=== PATIENT | female | born 1935 | race Caucasian/White ===

== ENCOUNTER → 2023-11-07 12:08 | Outpatient (REF) | payer OTHER, SELFPAY ==
[2023-11-07 13:24] LABS: % Basophils 0.8 % (0-2); % Eosinophils 5.9 % (0-6); % Immature Granulocytes 0.9 % (0-0.5); % Lymphocytes 10.9 % (20.5-51.1); % Monocytes 8.7 % (1.7-9.3); % Neutrophils 72.8 % (42.2-75.2); Absolute Basophils 0.1 10^3/uL (0-0.2); Absolute Eosinophils 0.4 10^3/uL (0-0.7); Absolute Immature Granulocytes 0.1 10^3/uL (0-0.05); Absolute Lymphocytes 0.7 10^3/uL (1.2-3.4); Absolute Monocytes 0.6 10^3/uL (0.1-0.6); Absolute Neutrophils 4.8 10^3/uL (1.4-6.5); Hematocrit 34.5 % (37.0-47.0); Hemoglobin 10.9 g/dL (12.0-16.0); Mean Corp Hgb Conc. 31.6 g/dL (33.0-37.0); Mean Corpuscular Volume 88.7 fL (81.0-99.0); Mean Platelet Volume 12.6 fL (7.4-10.4); Nucleated Red Blood Cells % 0 %; Platelet Count 113 10^3/uL (130-400); Red Blood Cell Count 3.89 10^6/uL (4.20-5.40); Red Cell Dist. Width 19.3 % (11.5-14.5); White Blood Cell Count 6.6 10^3/uL (4.8-10.8)
[2023-11-07 13:51] LABS: Iron 132 ug/dl (37-170)
[2023-11-07 14:02] LABS: Percent Saturation 35 % (20-50); Total Iron Binding Capacity 371 ug/dl (265-497)
[2023-11-07 14:28] LABS: Ferritin 40.8 ng/ml (11.1-264.0)
== END ==
LOC: REG 12:08
PROVIDERS: ATTENDING PHYSICIAN Internal Medicine Geriatric Medicine
DX: J98.4 Other disorders of lung (principal); D50.0 Iron deficiency anemia secondary to blood loss (chronic)
CPT/HCPCS: 36415; 82728; 83540; 83550; 85025

== ENCOUNTER → 2023-12-02 08:37 | Outpatient (REF) | payer OTHER, SELFPAY | LOC: HWRAD 08:37 | PROVIDERS: ATTENDING PHYSICIAN Surgery; FAMILY PHYSICIAN Internal Medicine Geriatric Medicine | DX: K46.9 Unspecified abdominal hernia without obstruction or gangrene (principal) | CPT/HCPCS: 76705 ==

== ENCOUNTER → 2024-02-18 12:17 | Outpatient (REF) | payer OTHER, SELFPAY ==
[2024-02-18 14:02] LABS: CEA 1.54 ng/ml
== END ==
LOC: REG 12:17
PROVIDERS: ATTENDING PHYSICIAN Surgery; FAMILY PHYSICIAN Internal Medicine Geriatric Medicine
DX: Z85.038 Personal history of other malignant neoplasm of large intestine (principal)
CPT/HCPCS: 36415; 82378

== ENCOUNTER → 2024-06-01 13:27 | Outpatient (REF) | payer OTHER, SELFPAY | LOC: RAD 13:27 | PROVIDERS: ATTENDING PHYSICIAN Internal Medicine Critical Care Medicine; FAMILY PHYSICIAN Internal Medicine Geriatric Medicine | DX: J45.40 Moderate persistent asthma, uncomplicated (principal) | CPT/HCPCS: 71046 ==

== ENCOUNTER → 2024-06-08 08:53 | Outpatient (REF) | payer OTHER, SELFPAY ==
[2024-06-08 10:57] LABS: ALT (SGPT) 20 U/L (0-35); AST (SGOT) 31 U/L (14-36); Alkaline Phosphatase 62 U/L (38-126); Blood Urea Nitrogen 32 mg/dl (7-17); Calcium 10.2 mg/dl (8.4-10.2); Carbon Dioxide 26 mmol/L (22-30); Chloride 108 mmol/L (98-107); Glucose 94 mg/dl (70-99); HDL Cholesterol 79 mg/dl; Iron 126 ug/dl (37-170); LDL Cholesterol, Calculated 82 mg/dl; Potassium 4.2 mmol/L (3.5-5.1); Sodium 146 mmol/L (135-145); Total Bilirubin 0.7 mg/dl (0.2-1.3); Total Cholesterol 174 mg/dl (50-199); Triglyceride 69 mg/dl (10-149); Very Low Density Lipoprotein 13 mg/dl (0-30); eGFR 36.19
[2024-06-08 11:06] LABS: Percent Saturation 44 % (20-50); Total Iron Binding Capacity 312 ug/dl (265-497)
[2024-06-08 11:08] LABS: % Eosinophils 4.9 % (0-6); % Immature Granulocytes 0.8 % (0-0.5); % Lymphocytes 16.9 % (20.5-51.1); % Monocytes 9.8 % (1.7-9.3); % Neutrophils 66.6 % (42.2-75.2); Absolute Basophils 0.1 10^3/uL (0-0.2); Absolute Eosinophils 0.3 10^3/uL (0-0.7); Absolute Lymphocytes 0.9 10^3/uL (1.2-3.4); Absolute Monocytes 0.5 10^3/uL (0.1-0.6); Absolute Neutrophils 3.4 10^3/uL (1.4-6.5); Hematocrit 33.8 % (37.0-47.0); Mean Corp Hgb Conc. 32.5 g/dL (33.0-37.0); Mean Corpuscular Hgb 30.2 pg (27.0-31.0); Mean Corpuscular Volume 92.9 fL (81.0-99.0); Mean Platelet Volume 11.9 fL (7.4-10.4); Nucleated Red Blood Cells % 0 %; Platelet Count 93 10^3/uL (130-400); Red Blood Cell Count 3.64 10^6/uL (4.20-5.40); Red Cell Dist. Width 13.5 % (11.5-14.5); White Blood Cell Count 5.1 10^3/uL (4.8-10.8)
[2024-06-08 11:13] LABS: Free T4 1.35 ng/dl (0.78-2.19); Vitamin D, 25-OH*** 31.8 ng/mL (30-80)
[2024-06-08 11:26] LABS: TSH 0.97 uIU/ml (0.47-4.68)
== END ==
LOC: REG 08:53
PROVIDERS: ATTENDING PHYSICIAN Internal Medicine Geriatric Medicine
DX: Z85.038 Personal history of other malignant neoplasm of large intestine (principal); I27.20 Pulmonary hypertension, unspecified
CPT/HCPCS: 36415; 80053; 80061; 82306; 83540; 83550; 84439; 84443; 85025

== ENCOUNTER → 2024-06-17 12:41 | Outpatient (REF) | payer OTHER, SELFPAY ==
[2024-06-17 15:36] LABS: Carbon Dioxide 29 mmol/L (22-30); Glucose 91 mg/dl (70-99); eGFR 36.19
[2024-06-17 15:46] LABS: Blood Urea Nitrogen 34 mg/dl (7-17); Calcium 10.1 mg/dl (8.4-10.2); Chloride 104 mmol/L (98-107); Potassium 4.3 mmol/L (3.5-5.1); Sodium 142 mmol/L (135-145)
== END ==
LOC: REG 12:41
PROVIDERS: ATTENDING PHYSICIAN Internal Medicine Geriatric Medicine
DX: N28.9 Disorder of kidney and ureter, unspecified (principal)
CPT/HCPCS: 36415; 80048

== ENCOUNTER → 2024-06-29 06:34 | Day surgery (SDC) | payer OTHER, SELFPAY | LOC: GI 06:34 | PROVIDERS: ATTENDING PHYSICIAN Internal Medicine Gastroenterology | DX: Z08 Encounter for follow-up examination after completed treatment for malignant neoplasm (principal); Z85.038 Personal history of other malignant neoplasm of large intestine; K64.8 Other hemorrhoids; K63.89 Other specified diseases of intestine | CPT/HCPCS: 45378 ==

== ENCOUNTER → 2024-07-22 11:18 | Outpatient (REF) | payer OTHER, SELFPAY | LOC: RAD 11:18 | PROVIDERS: ATTENDING PHYSICIAN Internal Medicine Gastroenterology | DX: R15.1 Fecal smearing (principal); Z90.49 Acquired absence of other specified parts of digestive tract | CPT/HCPCS: 74018 ==

== ENCOUNTER → 2024-08-13 09:02 | Outpatient (REF) | payer OTHER, SELFPAY | LOC: HWRAD 09:02 | PROVIDERS: ATTENDING PHYSICIAN Internal Medicine Gastroenterology; FAMILY PHYSICIAN Internal Medicine Geriatric Medicine | DX: R11.0 Nausea (principal) | CPT/HCPCS: 76700 ==

== ENCOUNTER → 2024-11-10 11:12 | Outpatient (REF) | payer OTHER, SELFPAY ==
[2024-11-10 12:09] LABS: Urine Albumin 3+ (Neg - Trace); Urine Bilirubin Negative (Negative); Urine Character Clear (Clear); Urine Color Yellow; Urine Glucose Negative (Negative); Urine Ketone Negative (Negative); Urine Leukocyte Negative (Negative); Urine Nitrite Negative (Negative); Urine Occult Blood 3+ (Negative); Urine Specific Gravity 1.015 (<1.030); Urine Urobilinogen Negative (Neg - 1+)
[2024-11-10 12:41] LABS: ALT (SGPT) 23 U/L (0-35); AST (SGOT) 25 U/L (14-36); Albumin 3.5 g/dl (3.5-5.0); Alkaline Phosphatase 74 U/L (38-126); Blood Urea Nitrogen 47 mg/dl (7-17); Calcium 9.2 mg/dl (8.4-10.2); Carbon Dioxide 22 mmol/L (22-30); Chloride 108 mmol/L (98-107); Glucose 100 mg/dl (70-99); HDL Cholesterol 61 mg/dl; Iron 57 ug/dl (37-170); LDL Cholesterol, Calculated 80 mg/dl; Potassium 4.2 mmol/L (3.5-5.1); Sodium 137 mmol/L (135-145); Total Bilirubin 0.6 mg/dl (0.2-1.3); Total Cholesterol 153 mg/dl (50-199); Total Protein 5.7 g/dl (6.3-8.2); Triglyceride 63 mg/dl (10-149); Very Low Density Lipoprotein 12 mg/dl (0-30); eGFR 10.92
[2024-11-10 12:41] LABS: Urine Squamous Cell 0-2 /LPF (Few)
[2024-11-10 12:42] LABS: Urine Bacteria Few (Negative); Urine Red Blood Cell 0-2 /HPF (0-2); Urine White Cell 0-2 /HPF (0-5)
[2024-11-10 12:49] LABS: Percent Saturation 23 % (20-50); Total Iron Binding Capacity 242 ug/dl (265-497)
[2024-11-10 12:54] LABS: % Basophils 0.3 % (0-2); % Eosinophils 1.5 % (0-6); % Lymphocytes 9.1 % (20.5-51.1); % Monocytes 7.3 % (1.7-9.3); % Neutrophils 80.8 % (42.2-75.2); Absolute Eosinophils 0.1 10^3/uL (0-0.7); Absolute Immature Granulocytes 0.1 10^3/uL (0-0.05); Absolute Lymphocytes 0.5 10^3/uL (1.2-3.4); Absolute Monocytes 0.4 10^3/uL (0.1-0.6); Absolute Neutrophils 4.8 10^3/uL (1.4-6.5); Hematocrit 21.4 % (37.0-47.0); Hemoglobin 6.7 g/dL (12.0-16.0); Mean Corp Hgb Conc. 31.3 g/dL (33.0-37.0); Mean Corpuscular Volume 99.1 fL (81.0-99.0); Mean Platelet Volume 11.8 fL (7.4-10.4); Nucleated Red Blood Cells % 0 %; Platelet Count 73 10^3/uL (130-400); Red Blood Cell Count 2.16 10^6/uL (4.20-5.40); Red Cell Dist. Width 14.5 % (11.5-14.5); White Blood Cell Count 5.9 10^3/uL (4.8-10.8)
[2024-11-10 12:58] LABS: Free T4 1.56 ng/dl (0.78-2.19); Vitamin D, 25-OH*** 24.8 ng/mL (30-80)
[2024-11-10 13:36] LABS: Vitamin B12 556 pg/ml (239-931)
[2024-11-10 15:24] LABS: TSH 1.57 uIU/ml (0.47-4.68)
[2024-11-11 18:35] LABS: CEA 2.36 ng/ml
== END ==
LOC: REG 11:12
PROVIDERS: ATTENDING PHYSICIAN Internal Medicine Geriatric Medicine
DX: I27.20 Pulmonary hypertension, unspecified (principal); J45.40 Moderate persistent asthma, uncomplicated; J47.9 Bronchiectasis, uncomplicated; E03.9 Hypothyroidism, unspecified; I10 Essential (primary) hypertension; J31.0 Chronic rhinitis; R06.02 Shortness of breath; R42 Dizziness and giddiness; D50.0 Iron deficiency anemia secondary to blood loss (chronic); Z13.89 Encounter for screening for other disorder
CPT/HCPCS: 36415; 80053; 80061; 81003; 81015; 82306; 82378; 82607; 82728; 83540; 83550; 84439; 84443; 85025

== ENCOUNTER 2024-11-10 18:00 | Inpatient (IN) | payer OTHER, SELFPAY ==
[2024-11-10] VITALS (10 sets, daily range): BP systolic 123–159; BP diastolic 56–83; BMI 20.6
[2024-11-10 15:56] LABS: % Basophils 0.2 % (0-2); % Eosinophils 1.4 % (0-6); % Immature Granulocytes 1.1 % (0-0.5); % Monocytes 7.6 % (1.7-9.3); % Neutrophils 80.7 % (42.2-75.2); Absolute Eosinophils 0.1 10^3/uL (0-0.7); Absolute Immature Granulocytes 0.1 10^3/uL (0-0.05); Absolute Lymphocytes 0.5 10^3/uL (1.2-3.4); Absolute Monocytes 0.4 10^3/uL (0.1-0.6); Absolute Neutrophils 4.5 10^3/uL (1.4-6.5); Hematocrit 20.7 % (37.0-47.0); Hemoglobin 6.5 g/dL (12.0-16.0); Mean Corp Hgb Conc. 31.4 g/dL (33.0-37.0); Mean Corpuscular Hgb 30.5 pg (27.0-31.0); Mean Corpuscular Volume 97.2 fL (81.0-99.0); Nucleated Red Blood Cells % 0 %; Platelet Count 71 10^3/uL (130-400); Red Blood Cell Count 2.13 10^6/uL (4.20-5.40); Red Cell Dist. Width 14.3 % (11.5-14.5); White Blood Cell Count 5.5 10^3/uL (4.8-10.8)
[2024-11-10 16:13] LABS: ALT (SGPT) 21 U/L (0-35); AST (SGOT) 25 U/L (14-36); Alkaline Phosphatase 72 U/L (38-126); Blood Urea Nitrogen 50 mg/dl (7-17); Carbon Dioxide 20 mmol/L (22-30); Chloride 105 mmol/L (98-107); Glucose 125 mg/dl (70-99); Sodium 138 mmol/L (135-145); Total Bilirubin 0.5 mg/dl (0.2-1.3); Total Protein 5.9 g/dl (6.3-8.2); eGFR 10.92
--- NOTE | 2024-11-10 16:30 | ED.GENMED ---
History of Present Illness
<Wilmar Pena PA-C - Last Filed: 11/10/24 18:58>
General
Chief Complaint: Abnormal Lab Value
Source: patient and records
Time Seen by Provider: 11/10/24 16:06
History of Present Illness
History of Present Illness:
89-year-old female with past medical history of previous colon cancer, asthma, intracranial bleeding status post fall in 2022 with residual positional vertigo, thrombocytopenia presenting to the ER after she had outpatient labs with primary care
provider which showed a hemoglobin of 6.7, sent to the ER for further evaluation. Patient notes that this is part of a routine visit to her primary care provider but notes that she feels as if she is always cold and has been a little bit more
fatigued recently. Patient denies any fevers, chills, rigors, nausea, vomiting bowel changes including melena or hematochezia. Patient denies any history of similar. Patient's does note that she did have a colonoscopy within the last year
which did not show any abnormalities. Patient is not on any anticoagulant medication. No other concerns presently.
Past History
<Wilmar Pena PA-C - Last Filed: 11/10/24 18:58>
Past History
ED Past Medical History: Asthma, Hypothyroidism and Other (Low platelets, hypothyroidism)
ED Past Surgical History: Appendectomy
Social History
Tobacco: Non-smoker
Alcohol: Occasional
Drug: None
Personal:
Living: with family
Employment: Retired
Family History
Family History: Other (Father with cirrhosis)
Review of Systems
<Wilmar Pena PA-C - Last Filed: 11/10/24 18:58>
Review of Systems
All Other Systems: ROS reviewed and negative except as documented in HPI and ROS
Phy Exam
<Wilmar Pena PA-C - Last Filed: 11/10/24 18:58>
Physical Exam
Physical Exam:
GENERAL: Alert , in no apparent distress
EYE: clear conjunctiva b/l
HEAD: NCAT
ENT: o/p clr, mmm.
CARDIAC: Borderline tachycardic rate and rhythm, no murmur
LUNGS: Clear breath sounds bilaterally, no acute respiratory distress, no wheezes/rales/rhonchi
ABDOMEN: Soft, without focal tenderness, no r/g, no cvat
RECTAL EXAM: Chaperoned by ED nurse Felicita, light brown stool heme-negative
NEUROLOGICAL: Alert and oriented
SKIN: Warm and dry, skin intact. Pale in appearance
MUSCULOSKELETAL: No edema, well perfused.
PSYCH: Normal and appropriate interaction.
Scores
<Wilmar Pena PA-C - Last Filed: 11/10/24 18:58>
Heart Failure Risk
Heart Failure Risk Score: Not Applicable
Heart Score for Chest Pain Patients
STEMI patient?: Not applicable
Withdrawal Assessment of Alcohol
Withdrawal Assessment Completed?: Not applicable
Course
<Wilmar Pena PA-C - Last Filed: 11/10/24 18:58>
Orders/Labs/Results
Orders:
Orders
11/10/24 15:38
Type+Screen Urgent
Complete Blood Count/With Diff Urgent
Comprehensive Metabolic Panel Urgent
11/10/24 16:31
Blood Bank Products [* Blood Bank Products] Urgent
Blood Bank Products: *Packed RBC Leuko(PRBC's)
Quantity: 2
Transfuse Today: Yes
Reason: Anemia
11/10/24 16:43
Ipratropium/Albuterol Sulfate [Duoneb] 3 ml INH R NOW ONE
11/10/24 17:02
Ferritin Urgent
Iron Urgent
Total Iron Binding Urgent
11/10/24 17:44
Admit/Transfer Patient As Directed
Co-Sign Provider:
Level of Care: Inpatient admission
Assign to:: Telemetry
Physician / Group: Daniel Sanchez
Diagnosis: anemia, BRIANNA
Reason for Telemetry: Arrhythmia
Date to Stop Telemetry: 11/13/24
Time to Stop Telemetry: 11:00
Reason for Hospitalization: anemia, BRIANNA
Expected length of stay greater than two midnights?: Yes
ELOS- Estimated Length of Stay in days: 3
I certify the patient meets the requirements for IP care: Yes
PRN Pain Medication Management As Directed
May give lesser potent ordered pain med per pt: Yes
preference::
Protocol:: Medication orders for pain may be administered in a
manner that supports deferring to patient preference
when the pt is:
- Requesting an ordered lesser potent pain medication.
Least to most potent pain medications are defined
as: acetaminophen < NSAID < tramadol < opioids
(morphine, oxycodone, hydromorphone).
- Requesting a lesser dose of the same medication IF
ORDERED.
- Requesting a less intrusive route of administration
if both routes are prescribed by the provider (PO <
IV).
11/10/24 17:45
Code Status As Directed
Resuscitation Status: Full Code
11/13/24 11:00
DC Protocol for Telemetry ONCE
Abnormal Lab Results
11/10/24 11/10/24
15:38 17:02
RBC 2.13 L 10^6/uL
(4.20-5.40)
Hgb 6.5 L* g/dL
(12.0-16.0)
Hct 20.7 L* %
(37.0-47.0)
MCHC 31.4 L g/dL
(33.0-37.0)
Plt Count 71 L 10^3/uL
(130-400)
MPV 12.0 H fL
(7.4-10.4)
Abs Immat Gran (auto) 0.1 H 10^3/uL
(0-0.05)
Absolute Lymphs (auto) 0.5 L 10^3/uL
(1.2-3.4)
Immature Gran % 1.1 H %
(0-0.5)
Neutrophils % 80.7 H %
(42.2-75.2)
Lymphocytes % 9.0 L %
(20.5-51.1)
Carbon Dioxide 20 L mmol/L
(22-30)
BUN 50 H mg/dl
(7-17)
Creatinine 3.8 H mg/dL
(0.6-1.0)
Glucose 125 H mg/dl
(70-99)
TIBC 225 L ug/dl
(265-497)
Total Protein 5.9 L g/dl
(6.3-8.2)
Crossmatch IS Only See Detail
11/10/24 15:38
11/10/24 15:38
Vital Signs
Initial and Last Documented VS:
Initial Vital Signs
Temp Pulse Resp BP Pulse Ox
98.7 F 101 17 159/83 99
11/10/24 15:31 11/10/24 15:31 11/10/24 15:31 11/10/24 15:31 11/10/24 15:31
Last Documented Vital Signs
Temp Pulse Resp BP Pulse Ox
99.3 F 90 16 148/66 92
11/10/24 17:42 11/10/24 18:30 11/10/24 18:30 11/10/24 18:00 11/10/24 18:30
<Leonel Quezada MD - Last Filed: 11/10/24 17:42>
Orders/Labs/Results
Orders:
Orders
11/10/24 15:38
Type+Screen Urgent
Complete Blood Count/With Diff Urgent
Comprehensive Metabolic Panel Urgent
11/10/24 16:31
Blood Bank Products [* Blood Bank Products] Urgent
Blood Bank Products: *Packed RBC Leuko(PRBC's)
Quantity: 2
Transfuse Today: Yes
Reason: Anemia
11/10/24 16:43
Ipratropium/Albuterol Sulfate [Duoneb] 3 ml INH R NOW ONE
11/10/24 17:02
Ferritin Urgent
Iron Urgent
Total Iron Binding Urgent
11/10/24 17:44
Admit/Transfer Patient As Directed
Co-Sign Provider:
Level of Care: Inpatient admission
Assign to:: Telemetry
Physician / Group: Daniel Sanchez
Diagnosis: anemia, BRIANNA
Reason for Telemetry: Arrhythmia
Date to Stop Telemetry: 11/13/24
Time to Stop Telemetry: 11:00
Reason for Hospitalization: anemia, BRIANNA
Expected length of stay greater than two midnights?: Yes
ELOS- Estimated Length of Stay in days: 3
I certify the patient meets the requirements for IP care: Yes
PRN Pain Medication Management As Directed
May give lesser potent ordered pain med per pt: Yes
preference::
Protocol:: Medication orders for pain may be administered in a
manner that supports deferring to patient preference
when the pt is:
- Requesting an ordered lesser potent pain medication.
Least to most potent pain medications are defined
as: acetaminophen < NSAID < tramadol < opioids
(morphine, oxycodone, hydromorphone).
- Requesting a lesser dose of the same medication IF
ORDERED.
- Requesting a less intrusive route of administration
if both routes are prescribed by the provider (PO <
IV).
11/10/24 17:45
Code Status As Directed
Resuscitation Status: Full Code
11/13/24 11:00
DC Protocol for Telemetry ONCE
Abnormal Lab Results
11/10/24 11/10/24
15:38 17:02
RBC 2.13 L 10^6/uL
(4.20-5.40)
Hgb 6.5 L* g/dL
(12.0-16.0)
Hct 20.7 L* %
(37.0-47.0)
MCHC 31.4 L g/dL
(33.0-37.0)
Plt Count 71 L 10^3/uL
(130-400)
MPV 12.0 H fL
(7.4-10.4)
Abs Immat Gran (auto) 0.1 H 10^3/uL
(0-0.05)
Absolute Lymphs (auto) 0.5 L 10^3/uL
(1.2-3.4)
Immature Gran % 1.1 H %
(0-0.5)
Neutrophils % 80.7 H %
(42.2-75.2)
Lymphocytes % 9.0 L %
(20.5-51.1)
Carbon Dioxide 20 L mmol/L
(22-30)
BUN 50 H mg/dl
(7-17)
Creatinine 3.8 H mg/dL
(0.6-1.0)
Glucose 125 H mg/dl
(70-99)
TIBC 225 L ug/dl
(265-497)
Total Protein 5.9 L g/dl
(6.3-8.2)
Crossmatch IS Only See Detail
11/10/24 15:38
11/10/24 15:38
Vital Signs
Initial and Last Documented VS:
Initial Vital Signs
Temp Pulse Resp BP Pulse Ox
98.7 F 101 17 159/83 99
11/10/24 15:31 11/10/24 15:31 11/10/24 15:31 11/10/24 15:31 11/10/24 15:31
Last Documented Vital Signs
Temp Pulse Resp BP Pulse Ox
99.3 F 90 16 148/66 92
11/10/24 17:42 11/10/24 18:30 11/10/24 18:30 11/10/24 18:00 11/10/24 18:30
<Wilmar Pena PA-C - Last Filed: 11/10/24 18:58>
MDM/Problems Addressed
Differential Diagnosis Includes:
Microcytic versus normocytic versus macrocytic anemia, GI bleeding, less concern for infectious etiology, malignancy
MDM/Problems Addressed:
89-year-old female presenting to the ER for evaluation of reported new onset anemia on labs done as an outpatient. Lab work from earlier this morning was reviewed which showed a hemoglobin of 6.7. Last hemoglobin in May 2024 was 11. Stool
light brown and heme-negative. Patient does have a new creatinine of 3.8 which is increased from 1.4 in May 2024. Given her new onset renal failure patient will need admission. Blood consent was obtained. Plan for admission
<Wilmar Pena PA-C - Last Filed: 11/10/24 18:58>
*Pulse Oximetry
Patient hypoxic: no
*Sub Master Interpretation
Rate: normal
Rhythm: sinus
*Critical Care Note
Total Time (30-74mins, 75-104mins- exclusive of procedures): 30
comment:
Critical care statement: A total of 30 minutes of critical care time was provided for this patient. This includes management of unstable vital signs, evaluation of the patient at bedside, reviewing the patient's pertinent medical records, discussion
with consultants, review of old EKGs and review of pertinent medical records. This time with separate from time utilized to perform the aforementioned documented procedures
Data Reviewed
Review of Other/Old Records Reveals: Labs and Records
<Wilmar Pena PA-C - Last Filed: 11/10/24 18:58>
Patient Management
Discussion with other providers: Hospitalist
Escalation/DeEscalation of care consider admission/obs:
Patient has hemoglobin of 6.5. Her creatinine is now 3.8 which is increased from 1.4 when she was last evaluated in May. Given her new acute kidney injury combined with her anemia we will plan for admission for further consultation.
Hospitalist team accepts for continued evaluation and treatment.
ED Attending Note
<Wilmar Pena PA-C - Last Filed: 11/10/24 18:58>
-
Portions of this chart may have been created with voice recognition software.� Occasional wrong word or��sound alike� substitutions may have occurred due to the inherent limitations of voice recognition software.
<Leonel Quezada MD - Last Filed: 11/10/24 17:42>
ED Attending Note
Patient seen and examined by attending physician: Yes
ED Attending Note:
I have seen and evaluated the patient with a [id number] encounter. I have spoken to the advance practicer provider and involved in the medical history, the physical exam, medical decision making.
Evaluation and management service: agree unless noted differently below.
Results interpretation: agree unless noted differently below.
Focused HPI: 81-year-old female with history as noted presents with her for evaluation after outpatient blood work showed new anemia. Patient reports that she has had chronic poor appetite, fatigue, shortness of breath and
lightheadedness/dizziness. She saw her PCP and had lab work drawn which apparently showed severe anemia acute on chronic. Referred to the ER for assessment. She has not had any bleeding in her stools. does note that she has very poor
p.o. intake generally speaking.
Physical exam: Awake alert not distressed. Tachycardic, mildly hypertensive. Somewhat pale appearing. Hemoccult negative per PA exam.
Medical Decision Makin-year-old female presents to the ER sent in for acute on chronic anemia noted on outpatient lab. She has had chronic and worsening fatigue, shortness of breath and poor p.o. intake. Vitals and exam as above. She was
Hemoccult negative here. Her labs here in the ER showed hemoglobin of 6.5 from prior baseline 11+. She has thrombocytopenia with a platelet count of 71�this is a chronic issue. Her CMP showed new renal insufficiency with a creatinine of 3.8 from
a baseline of 1.4. Will plan to transfuse 2 units of PRBCs admit for continued evaluation and treatment.
Discharge Plan
Departure
Patient Disposition: Admit
Date of Disposition: 11/10/24
Time of Disposition: 16:40
Presentation/result/management discussed w/ accepting MD/DO: Hospitalist
Discharge Problem:
Anemia, Thrombocytopenia, BRIANNA (acute kidney injury)
Interventions
Interventions:
*Risk Screen - Suicide Last Done: 11/10/24 15:32
*General Assessment Last Done: 11/10/24 15:32
*Neglect/Abuse Screening Last Done: 11/10/24 15:32
*ED- Fall Risk Assessment Last Done: 11/10/24 17:40
*ED COVID-19 Vaccine History Last Done: 11/10/24 15:32
[2024-11-10] MEDS: DUONEB 3 ML INH (17:09)
--- NOTE | 2024-11-10 17:24 | HPS.HSE ---
Family Physician
-
Family Physician: Krystian Campos
Chief Complaint
-
Low HGB on OP Labs
History of Present Illness
HPI
89F HX Robotic Right Colectomy on 07/25/24 for previous colon cancer, asthma, ICH status post fall in 2022 with residual positional vertigo, thrombocytopenia seen at ER:
- sent to ER after outpatient labs with PCP noted for Hgb 6.7 sent to the ER for further evaluation.
- always cold and has been a little bit more fatigued recently.
- does note that she did have a colonoscopy within the last year which did not show any abnormalities. - - Not ot on any AC medication.
ROS:
- denies any fevers, chills, rigors, nausea, vomiting bowel changes including melena or hematochezia.
- denies any history of similar. No other concerns presently.
Medical History
Past Medical History
Past Medical History: Reports Cancer (Colon CA s/p Robotic Right Colectomy on 07/25/24), HTN and Hypothyroidism
Past Surgical History: Reports Bowel Resection (Colon CA s/p Robotic Right Colectomy on 07/25/24)
Social History
Tobacco: Non-smoker
Alcohol: None
Family History
Family History: Not pertinent
Allergies / Home Medications
Allergies reflects when Allergies were last updated in [facility].
Home Medications with original date entered in [facility]
Allergy/Medication List:
Allergies
Allergy/AdvReac Type Severity Reaction Status Date / Time
promethazine Allergy Vomiting Verified 11/10/24 15:32
Home Medications
albuterol sulfate 2.5 mg/3 mL (0.083 %) solution for nebulization 2.5 mg inhalation TID shortness of breath/cough 07/19/23
dextromethorphan-guaifenesin 30 mg-600 mg tablet extended vppohog19 hr (Mucinex DM) 1 tab PO Q12H Congestion 07/19/23
levothyroxine 50 mcg capsule 50 mcg PO DAILY Thyroid 07/19/23
meclizine 12.5 mg tablet 12.5 mg PO PRN PRN positional vertigo 07/19/23
nifedipine 30 mg tablet,extended release 30 mg PO DAILY Blood pressure #30 tabs 07/29/23
oxycodone-acetaminophen 5 mg-325 mg tablet (Percocet) 1 tab PO Q6HPRN PRN pain #10 tabs 08/23/23
Review of Systems
-
Constitutional: Reports Fatigue
EENT: Reports No Symptoms
Respiratory: Reports No Symptoms
Cardiac: Reports No Symptoms
Abdomen/GI: Reports No Symptoms
: Reports No Symptoms
Musculoskeletal: Reports No Symptoms
Skin: Reports No Symptoms
Neurological: Reports No Symptoms
Endocrine: Reports No Symptoms
Hematologic/Lymphatic: Reports No Symptoms
Psych: Reports No Symptoms
Physical Exam
Vital Signs
Vital Signs
Temp Pulse Resp BP Pulse Ox
98.8 F 87 16 144/65 99
11/10/24 17:20 11/10/24 17:20 11/10/24 17:20 11/10/24 17:20 11/10/24 15:31
Physical Exam
General: Well Developed, Well Nourished and No Apparent Distress
HEENT: NormoCephalic, Moist mucous membranes and Atraumatic
Respiratory: Clear
Cardiac: S1/S2 and Regular Rhythm; No Murmur or Rub
GI: Soft, Non Tender, Non Distended and Normal Bowel Sounds; No Organomegaly
Rectal: Deferred by Provider
Musculoskeletal: No Clubbing, No Cyanosis and No Edema
Skin: No Rash
Neuro: Nonfocal/grossly intact
Laboratory Results
-
11/10/24 15:38
11/10/24 15:38
Laboratory Results
Total Bilirubin 0.5 mg/dl (0.2-1.3) 11/10/24 15:38
AST 25 U/L (14-36) 11/10/24 15:38
ALT 21 U/L (0-35) 11/10/24 15:38
Alkaline Phosphatase 72 U/L (38-126) 11/10/24 15:38
Data Reviewed
-
Medical Tests (Nuc Med, Echo, EKG etc): Report Reviewed by me
Lab Data: Labs Reviewed by me
Old Records: Reviewed
Impression/Plan
-
Data
VS
08/23/23
02:47
Temp 97.6 F
Pulse 93
Resp Rate 18
Blood pressure 144/67
SaO2 97
Oxygen Mode of Delivery Room air
Labs
06/08/24 06/17/24 11/10/24
09:19 13:02 11:35
Hgb 11.0 L 6.7 L*
MCV 92.9
Plt Count 93 L 73 L
BUN 34 H 47 H
Creatinine 1.4 H 3.8 H
eGFR 36.19 10.92
11/10/24
15:38
Hgb 6.5 L*
MCV 97.2
Plt Count 71 L
BUN 50 H
Creatinine 3.8 H
eGFR 10.92
ASSESSMENT & PLAN
New symptomatic normocytes severe anemic Hgb 6.5 but NEG HoB light brown
Mild thrombocytopenia
DDX: subacute or chr BL anemia vs. ACDz due to CKD vs. myelodysplasia
s/p Robotic Right Colectomy on 07/25 for Colon CA
Dxed Colon CA following evaluation for worsening anemia June 2024
Not on thinner
- check Ferritin , B12 and Folate
- check Epogen
- Serial stool for HoB
- Blood consented and agree with 1 PRBC
- f/u post p RBCs Tx Hgb
- Avoid NSAID
- Hematology consult
- GI consult
BRIANNA: current Cr 3.8 of unclear orgin
Suspect CKD : last Cr 1.4 and eGFR was 36 on last admission
- check Epogen
- Avoid any nephrotoxic
- F/U Cr i AM s/p Blood Tx
Benign Hypertension
- Stable
- c/w DISC JOCKEY Nifedipine 30 daily
Allergic Asthma
- Nebs PRN for wheezing or SOB.
Hypothyroidism
- on DISC JOCKEY LT4
- check TSH
DVT Px: SCD
Full code
IP MS
[2024-11-10 17:30] LABS: Iron 45 ug/dl (37-170)
[2024-11-10 17:40] LABS: Percent Saturation 20 % (20-50); Total Iron Binding Capacity 225 ug/dl (265-497)
--- NOTE | 2024-11-10 21:00 | PTCARENOTE ---
Pt arrived to room 419-01. Pt ambulated from stretcher to bed x1 assist with cane. Pt AAOx3, VSS. Pt oriented to room, call boothe placed within reach.
[2024-11-10] MEDS: VENTOLIN NEBULES INH (22:42)
[2024-11-10] MEDS: PULMICORT INH (22:42)
[2024-11-10] MEDS: PULMICORT 0.5 MG INH (23:26)
[2024-11-10] MEDS: VENTOLIN NEBULES 2.5 MG INH (23:26)
[2024-11-11 04:26] VITALS: BP 131/57
[2024-11-11] MEDS: ProAIR HFA INHALER 1 PUFF INH ×2 (04:45→23:34)
--- NOTE | 2024-11-11 06:06 | DOWNTIME ---
There was a [employer] Downtime on 11/11/2024 from 0100 to 11/12/2023 at 0420 . Downtime documentation of patient's care, including medication administrations, has been reconciled in the electronic record per guidelines. Refer to the
patient's paper chart under the miscellaneous tab to see printed paper medication records and downtime forms.
[2024-11-11] MEDS: SYNTHROID 50 MCG PO (06:28)
--- NOTE | 2024-11-11 06:55 | CON.GI ---
Addendum entered and electronically signed by Mahesh Alonzo MD 11/11/24 10:52:
Patient seen and examined, agree with nurse practitioner note. The patient is an 89-year-old female with past medical history as noted who presents to the emergency room and found to have significant anemia. Her hemoglobin was 6.5 with an MCV of
97.2. She denies any new GI symptoms, melena, medic easier. She was heme-negative in the ER. Colonoscopy at the end of last year was unremarkable following her diagnosis of colon cancer status post resection in the past. Iron studies here not
consistent with iron deficiency. On exam she has no abdominal tenderness.
1. Anemia: Without signs of GI blood loss, without iron deficiency, up-to-date on colonoscopy from last year, doubt related to GI source of blood loss. At this point hold on any further GI workup, continue per hematology, likely underlying anemia
of chronic disease or other hematologic disorder.
We will sign off for now, please call back with any further questions.
Original Note:
Consultation
-
Date/Time Consultation Requested: 11/10/242224
Date/Time Consultation Performed: 11/11/24 0700
Requesting Provider: JAYNE Gonzales
Performing Provider: JAYNE Decker, Wu Alonzo MD
Medical History
Chief Complaint / HPI
History of Present Illness:
Pt is an 89yo with hx stage III colon CA with right hemicolectomy 2022 and declined chemo, asthma, HTN, hypothyroidism, thrombocytopenia of unclear etiology, s/p fall with subdural hematoma with admission to [facility] with anemia. On
admission noted with hbg 6.5 with MCV 97.2, platelets of 71,000, creat 3.8, BUN 50, with iron studies not c/w iron deficiency. Stool in ER light brown heme neg. Last colonoscopy 06/2024- colonic anastomosis normal internal hemorrhoids. Hx EGD 2022
gastritis small HH.
At this time patient she has had slow wt loss over time. She admits to some decreased appetite and lack of sense of smell for some time. She also admits to some loose stools but admits to taking magnesium supplements for joint pains. She
will get occasional crampy abdominal pain. She otherwise denies dysphagia, GERD, nausea, vomiting, constipation, blood or black in stools.
Past Medical History
Past Medical History: Asthma, Cancer (colon CA stage III), HTN, Hypothyroidism and Other (thrombocytopenia, subdural hematoma hemorrhage s/p fall, vertigo, covid 19 infection, cholelithiasis, nephrolithiasis )
Past Surgical History: Appendectomy, Bowel Resection (right hemicolectomy), Gynecological (ovarian cyst removal, cataract surgery), Orthopedic (carpal tunnel surgery), Tonsilectomy and Other (vericose vein surgery)
Social History
Tobacco: Former Smoker (quit many years ago )
Alcohol: None
Drug: None
Personal:
Living: With Family
Employment: Retired
Family History
Family History: Other (maternal Grandfather and paternal grandmother with hx colon CA)
Allergies / Home Medications
Allergy/AdvReac Type Severity Reaction Status Date / Time
promethazine Allergy Vomiting Verified 11/10/24 22:29
�Medication �Instructions �Recorded
albuterol sulfate 2.5 mg/3 mL 2.5 mg inhalation TID shortness of 07/19/23
(0.083 %) solution for nebulization breath/cough
dextromethorphan-guaifenesin 30 1 tab PO Q12H Congestion 07/19/23
mg-600 mg tablet extended
[id number] hr (Mucinex DM)
levothyroxine 50 mcg capsule 50 mcg PO DAILY Thyroid 07/19/23
meclizine 12.5 mg tablet 12.5 mg PO PRN PRN positional 07/19/23
vertigo
nifedipine 30 mg tablet,extended 30 mg PO DAILY Blood pressure #30 07/29/23
release tabs
Singulair 10 mg PO DAILY Allergies 11/10/24
budesonide 0.5 mg/2 mL suspension 0.5 mg inhalation BID SOB/cough 11/10/24
for nebulization
Review of Systems
-
History Source: Patient
Constitutional: Reports Weight Loss (over time with decreased appetite )
EENT: Reports No Symptoms
Respiratory: Reports Cough and Trouble Breathing
Cardiac: Reports No Symptoms
Abdomen/GI: Reports Abdominal Pain and Diarrhea
: Reports No Symptoms
Musculoskeletal: Reports Joint Pain
Skin: Reports No Symptoms
Neurological: Reports Weakness
Endocrine: Reports No Symptoms
Hematologic/Lymphatic: Reports No Symptoms
Vital Signs
Temp Pulse Resp BP Pulse Ox
99.4 F 80 18 131/57 94
11/11/24 04:26 11/11/24 04:45 11/11/24 04:45 11/11/24 04:26 11/11/24 05:00
Physical Exam
Exam
General: Well Developed, Well Nourished and No Apparent Distress
HEENT: Normocephalic and Anicteric
Respiratory: Wheezes (expiratory wheeze with current rx treatment )
Cardiac: Regular Rhythm
GI: Soft, Non Tender and Non Distended
Musculoskeletal: No Clubbing and No Cyanosis
Skin: Warm and Dry
Neuro: Awake, Alert and AO x 3
Psych: Calm
Results
WBC 5.5 10^3/uL (4.8-10.8) 11/10/24 15:38
Hgb 6.5 g/dL (12.0-16.0) L* 11/10/24 15:38
Hct 20.7 % (37.0-47.0) L* 11/10/24 15:38
MCV 97.2 fL (81.0-99.0) 11/10/24 15:38
Plt Count 71 10^3/uL (130-400) L 11/10/24 15:38
Absolute Neuts (auto) 4.5 10^3/uL (1.4-6.5) 11/10/24 15:38
Sodium 138 mmol/L (135-145) 11/10/24 15:38
Potassium 4.0 mmol/L (3.5-5.1) 11/10/24 15:38
Chloride 105 mmol/L (98-107) 11/10/24 15:38
Carbon Dioxide 20 mmol/L (22-30) L 11/10/24 15:38
BUN 50 mg/dl (7-17) H 11/10/24 15:38
Creatinine 3.8 mg/dL (0.6-1.0) H 11/10/24 15:38
Calcium 9.0 mg/dl (8.4-10.2) 11/10/24 15:38
Total Bilirubin 0.5 mg/dl (0.2-1.3) 11/10/24 15:38
AST 25 U/L (14-36) 11/10/24 15:38
ALT 21 U/L (0-35) 11/10/24 15:38
Alkaline Phosphatase 72 U/L (38-126) 11/10/24 15:38
Diagnostic Image Results:
07/2024 US abdomen
1. Cholelithiasis without evidence of acute cholecystitis or biliary ductal dilation.
2. Left-sided nephrolithiasis without hydronephrosis.
3. No sonographic abnormalities demonstrated in the area of palpable abnormality in the right lower quadrant.
Prior GI Procedures:
EGD: 2022 gastritis small HH. bx neg
Colonoscopy: [facility] 06/2024- colonic anastomosis normal internal hemorrhoids.
colonoscopy: [facility] 04/2023- - Rule out malignancy, tumor at the hepatic flexure.
Biopsied. Tattoo was placed distally.
- One 30 mm polyp in the sigmoid colon, removed with a
hot snare. Resected and retrieved. Clips were placed.
- One 2 mm polyp in the rectum, removed with a jumbo
cold forceps. Resected and retrieved.
- Internal hemorrhoids.
bx invasive adenocarcinoma moderately differentiated, sigmoid polyp with fragments of tubulovillous adenoma, cauterized margin neg for dysplasia, rectal polyp, mild HP changes
Assessment / Plan
-
Pt is an 89yo with hx stage III colon CA with right hemicolectomy 2022 and declined chemo, asthma, HTN, hypothyroidism, thrombocytopenia, s/p fall with subdural hematoma with admission to [facility] with anemia. On admission noted with hbg
6.5 with MCV 97.2, platelets of 71,000, creat 3.8, BUN 50, with iron studies not c/w iron deficiency. Stool in ER light brown heme neg. Last colonoscopy 06/2024- colonic anastomosis normal internal hemorrhoids. Hx EGD 2022 gastritis small HH.
-heme neg normocytic anemia not consistent with Iron deficiency
-hx stage III colon CA 2022 recent stable colonoscopy 06/2024
-chronic thrombocytopenia of unclear etiology
-acute on chronic CKD on admission
-ongoing decreased appetite, loss of taste, and wt loss over time
-diarrhea with use of magnesium supplements for joint pains
other med problems:
-asthma
-HTN
-s/p fall with prior subdural hematoma
-hypothyroid
PLAN:
etiology of anemia related to worsening kidney dysfunction, underlying heme issues vs other-- unlikely GI issue with recent stable colonoscopy, stable iron studies and heme neg stools
await heme and renal eval
repeat hbg 7.7 s/p transfusion
ok for regular diet monitor intake
monitor stools and joint pain off magnesium-- ? any alternative til magnesium for joint pain
pt has some ongoing decreased appetite and decreased taste - related to prior coivd vs other
if creat improves t/c CT with contrast if wt loss continues
-
-
Thank you for consultation and allowing me to participate in the patient's care. Please call the employee communications specialist GI physician during the after hours with any questions or concerns.
[2024-11-11 07:38] VITALS: BP 117/64
[2024-11-11] MEDS: VENTOLIN NEBULES 2.5 MG INH ×3 (07:55→19:27)
[2024-11-11] MEDS: PULMICORT 0.5 MG INH ×2 (07:55→19:27)
[2024-11-11 08:20] LABS: % Basophils 0.4 % (0-2); % Eosinophils 1.4 % (0-6); % Immature Granulocytes 1.2 % (0-0.5); % Lymphocytes 9.6 % (20.5-51.1); % Monocytes 8.2 % (1.7-9.3); % Neutrophils 79.2 % (42.2-75.2); Absolute Eosinophils 0.1 10^3/uL (0-0.7); Absolute Immature Granulocytes 0.1 10^3/uL (0-0.05); Absolute Lymphocytes 0.5 10^3/uL (1.2-3.4); Absolute Monocytes 0.4 10^3/uL (0.1-0.6); Hematocrit 23.5 % (37.0-47.0); Hemoglobin 7.7 g/dL (12.0-16.0); Mean Corp Hgb Conc. 32.8 g/dL (33.0-37.0); Mean Corpuscular Hgb 29.4 pg (27.0-31.0); Mean Corpuscular Volume 89.7 fL (81.0-99.0); Mean Platelet Volume 12.6 fL (7.4-10.4); Nucleated Red Blood Cells % 0 %; Platelet Count 68 10^3/uL (130-400); Red Blood Cell Count 2.62 10^6/uL (4.20-5.40); Red Cell Dist. Width 19.4 % (11.5-14.5)
[2024-11-11 08:40] LABS: Blood Urea Nitrogen 44 mg/dl (7-17); Calcium 8.8 mg/dl (8.4-10.2); Carbon Dioxide 20 mmol/L (22-30); Chloride 107 mmol/L (98-107); Estimated Creatinine Clearance 9 ml/min; Glucose 88 mg/dl (70-99); Potassium 3.9 mmol/L (3.5-5.1); Sodium 138 mmol/L (135-145); eGFR 11.27
[2024-11-11] MEDS: PROCARDIA XL (EXTENDED RELEASE) 30 MG PO (08:59)
[2024-11-11] MEDS: SINGULAIR 10 MG PO (08:59)
--- NOTE | 2024-11-11 09:31 | CON.ONC ---
Impression
Impression
89 year old female
Symptomatic Anemia
Thrombocytopenia
BRIANNA
H/o Stage III Colon Cancer s/p R Hemicolectomy
New Heart Murmur?
Plan
Plan
#Symptomatic Anemia, possibly secondary to BRIANNA vs. CKD
- hgb on admission 6.5, s/p 2U pRBC w/ sx improvement
- Macrocytic on admission, now normocytic. Hgb improved to 7.7 s/p transfusion
- Iron studies are wnl, b12 and folate, EPO pending. Will add LDH, haptoglobin and reticulocyte count for full hemolytic workup.
- transfuse if hgb <7g/dL
#BRIANNA vs. BRIANNA on CKD
- [place] was 1.4 in 05/2024 and now 3.8. eGFR 10-11 from 36 in 05/2024
- Given acute onset of worsening renal failure, anemia, and age, would be suspicious for MM. Though, her calcium is presently wnl and she does not report bone pain at this time.
- Ordered Serum/urine SPEP, serum free LC ratio, quantitative immunoglobulins. Will follow results
#Thrombocytopenia, acute on chronic
- Plts from 2022 in the 90s-150s, now 70s-60s. No obvious signs of bleeding, stool heme neg.
- Stable low platelet count at this time w/o signs of bleeding. Will observe for now, and can consider outpatient workup, pending serum/urine testing, with potential BM Bx.
- transfuse if plts <50,000 or procedure
#H/o Stage III Colon Cancer s/p R Hemicolectomy
- Was offered adjuvant chemo at that time, however she ultimately decided against it given successful surgical resection w/ negative margins and potential consequences of chemo at her age.
- Repeat colonoscopy in 2023 showed normal appearing internal hemorrhoids with no new polyps or masses.
- last CT of the chest/abd/pelvis was done in 2022. Given that she was undertreated, at the time of diagnosis and her last imaging scan was >1 year ago, given new symptoms of unexplained anemia, will order CT Chest/abd/pelvis with oral contrast only
due to BRIANNA and serum CEA.
#New Heart Murmur?
- Systolic murmur on exam, patient states this was found by Dr. Thompson in the OP office, suggested Echo which has not been done yet.
- Possible consequence of her severe anemia, however, given age, history of hypertension, and symptoms of weakness would agree to Echo as inpatient
Patient History
History of Present Illness
Shawna is an 89 year old woman with a past medical history of Stage III Colorectal cancer s/p right hemicolectomy 2022 w/o adjuvant chemo due to age, allergic asthma, hypertension, hypothyroidism, positional vertigo secondary to ICH from fall in
2022. She presented to the hospital following routine outpatient labs with her PCP that showed hgb of 6.7.
She reports that she has been feeling weak and cold in her extremities for 2 years, with steady progression to her present state. She reports no gross hematuria, hematochezia, bruising or other blood loss during this time.
She reports that 4 years ago she began to lose her sense of smell, which gradually progressed to loss of taste and a subsequent decrease in appetite with concurrent gradual weight loss of 50lbs over 4 years. Her cancer diagnosis and surgery took
place 2 years ago, during this 4 year progression of symptoms. After her hemicolectomy, her appetite did not return and her symptoms of anosmia and ageusia have persisted. She says that her food does not taste good and she feels full after a few
bites, even now. She does not have any abdominal pain, epigastric pain, nausea, or vomiting. She is not having any bone pain, back pain, night sweats, or chills.
Presently, her acute complaints are cough from her allergic asthma and persistent vertigo which is unchanged from prior. She is feeling better overall since receiving her blood transfusion.
Past-Medical/Surgical History
Past Medical History: Stage III Colorectal cancer s/p right hemicolectomy 2022 w/o adjuvant chemo due to age, allergic asthma, hypertension, hypothyroidism, positional vertigo secondary to ICH from fall in 2022
Past Surgical History: Appendectomy in 1940, ovarian cyst removal and lysis of adhesions in 1954, right breast lumpectomy, left cataract with lens implant, carpal tunnel surgery right hand 2021, right hemicolectomy 2022
Patient Medication
�Medication �Instructions �Recorded �Confirmed �Last Taken �Type
albuterol sulfate 2.5 mg/3 mL 2.5 mg inhalation TID shortness of 07/19/23 11/10/24 11/10/24 History
(0.083 %) solution for nebulization breath/cough
dextromethorphan-guaifenesin 30 1 tab PO Q12H Congestion 07/19/23 11/10/24 11/08/24 History
mg-600 mg tablet extended
[id number] hr (Mucinex DM)
levothyroxine 50 mcg capsule 50 mcg PO DAILY Thyroid 07/19/23 11/10/24 11/09/24 History
meclizine 12.5 mg tablet 12.5 mg PO PRN PRN positional 07/19/23 11/10/24 10/13/24 History
vertigo
nifedipine 30 mg tablet,extended 30 mg PO DAILY Blood pressure #30 07/29/23 11/10/24 11/10/24 Rx
release tabs
Singulair 10 mg PO DAILY Allergies 11/10/24 11/10/24 11/09/24 History
budesonide 0.5 mg/2 mL suspension 0.5 mg inhalation BID SOB/cough 11/10/24 11/10/24 11/10/24 History
for nebulization
Active Medications
Generic Name Dose Route Start Last Admin
Trade Name Freq PRN Reason Stop Dose Admin
Albuterol 1 puff 11/11/24 04:52 11/11/24 04:45
Albuterol Hfa [90 Mcg/Dose] Inhaler INH 1 puff
R Q4HPRN PRN Administration
SOB wheeze
Protocol
Albuterol Sulfate 2.5 mg 11/10/24 22:30 11/11/24 07:55
Albuterol Nebs 2.5 Mg/3 Ml Ampul INH 2.5 mg
R TID LIBORIO Administration
Protocol
Budesonide 0.5 mg 11/10/24 22:30 11/11/24 07:55
Budesonide (Pulmicort Respules) 0.5 Mg/2 Ml INH 0.5 mg
R BID LIBORIO Administration
Protocol
Guaifenesin 600 mg 11/11/24 10:00
Guaifenesin 600 Mg Extended Release Tablet PO 12/09/24 09:59
Q12 LIBORIO
Levothyroxine Sodium 50 mcg 11/11/24 06:00 11/11/24 06:28
Levothyroxine 50 Mcg Tablet PO 12/09/24 05:59 50 mcg
DAILY @ 0600 LIBORIO Administration
Montelukast Sodium 10 mg 11/11/24 08:00 11/11/24 08:59
Montelukast Sodium 10 Mg Tablet PO 12/09/24 07:59 10 mg
DAILY LIBORIO Administration
Nifedipine 30 mg 11/11/24 08:00 11/11/24 08:59
Nifedipine 30 Mg Extended Release Tablet PO 12/09/24 07:59 30 mg
DAILY LIBORIO Administration
Sodium Chloride 0 flush 11/10/24 23:00
Sodium Chloride 0.9% (Flush) Syringe IV 12/08/24 22:59
PER PROTOCOL LIBORIO
Review of Systems
-
History Source: Patient
Constitutional: Reports Weight Loss, No Appetite and Fatigue; Denies Fever, Night Sweats or Chills
EENT: Reports No Symptoms
Respiratory: Reports Cough; Denies Hemoptysis or Pleurisy
Cardiac: Reports No Symptoms
GI: Reports No Symptoms
Breast: Reports No Symptoms
: Reports No Symptoms
Musculoskeletal: Reports No Symptoms
Skin: Reports No Symptoms
Neuro: Reports Dizzy; Denies Headache or Numbness
Endocrine: Reports No Symptoms
Hematologic/Lymphatic: Denies Bleeding or Bruising
Allergy / Immunology: Reports No Symptoms
Psych: Reports No Symptoms
Physical Exam
-
General: Well Developed, Well Nourished, No Apparent Distress and Comfortable
HEENT: Moist Mucous Membranes
Cardiology: Normal Sinus Rhythm, S1, S2 and Murmur; Negative Rub/Gallop
Pulmonary: Other (Good air entry bilaterally, initial rales > on inspiration which cleared somewhat following cough); Negative Wheezes
GI: Soft and Normal Bowel Sounds; Negative Distended
Genito-Urinary: No Costovertebral Tenderness
Musculoskeletal: Other (No spinal or paraspinal tenderness)
Extremities: No C/C/E
Skin: Warm, Dry, IV Access / Catheter Site and No Ecchymosis
Hematologic / Lymphatic: No Lymphadenopathy and No Petechiae
Psych: Calm
Labs
Lab Results
WBC 5.0 10^3/uL (4.8-10.8) 11/11/24 06:47
RBC 2.62 10^6/uL (4.20-5.40) L 11/11/24 06:47
Hgb 7.7 g/dL (12.0-16.0) L 11/11/24 06:47
Hct 23.5 % (37.0-47.0) L 11/11/24 06:47
MCV 89.7 fL (81.0-99.0) 11/11/24 06:47
MCH 29.4 pg (27.0-31.0) 11/11/24 06:47
MCHC 32.8 g/dL (33.0-37.0) L 11/11/24 06:47
RDW 19.4 % (11.5-14.5) H 11/11/24 06:47
Plt Count 68 10^3/uL (130-400) L 11/11/24 06:47
MPV 12.6 fL (7.4-10.4) H 11/11/24 06:47
Abs Immat Gran (auto) 0.1 10^3/uL (0-0.05) H 11/11/24 06:47
Absolute Neuts (auto) 4.0 10^3/uL (1.4-6.5) 11/11/24 06:47
Absolute Lymphs (auto) 0.5 10^3/uL (1.2-3.4) L 11/11/24 06:47
Absolute Monos (auto) 0.4 10^3/uL (0.1-0.6) 11/11/24 06:47
Absolute Eos (auto) 0.1 10^3/uL (0-0.7) 11/11/24 06:47
Absolute Basos (auto) 0.0 10^3/uL (0-0.2) 11/11/24 06:47
Immature Gran % 1.2 % (0-0.5) H 11/11/24 06:47
Neutrophils % 79.2 % (42.2-75.2) H 11/11/24 06:47
Lymphocytes % 9.6 % (20.5-51.1) L 11/11/24 06:47
Monocytes % 8.2 % (1.7-9.3) 11/11/24 06:47
Eosinophils % 1.4 % (0-6) 11/11/24 06:47
Basophils % 0.4 % (0-2) 11/11/24 06:47
Creatinine 3.7 mg/dL (0.6-1.0) H 11/11/24 06:47
Vital Signs
Vital Signs
Temp Pulse Resp BP Pulse Ox
98.4 F 87 18 117/64 99
11/11/24 07:38 11/11/24 08:59 11/11/24 07:38 11/11/24 08:59 11/11/24 07:38
[2024-11-11 09:46] LABS: Folate 10.9 ng/ml (2.76-20); Vitamin B12 534 pg/ml (239-931)
[2024-11-11 10:20] LABS: Reticulocyte Count 0.6 % (0.4-2.8)
[2024-11-11 10:58] VITALS: BP 110/83
[2024-11-11 11:06] LABS: LDH 207 U/L (120-246)
--- NOTE | 2024-11-11 11:34 | W.CON.NEPH ---
Consultation
-
Date/Time Consultation Requested: 11/11/2024 9 AM
Date/Time Consultation Performed: 11/11/2024 11 AM
Requesting Provider: Dr. Del Castillo
Performing Provider: Dr. Lofton
Reason for Consultation: BRIANNA
Medical History
-
Chief Complaint: Anemia
History of Present Illness:
Pt is an 89yo with history of stage III colon CA with right hemicolectomy 2022 and declined chemotherapy, asthma on Singulair, HTN on a monotherapy regimen, hypothyroidism, thrombocytopenia. She was sent to the emergency room because of blood work
which had shown acute anemia. On admission noted with hgb 6.5, creat 3.8, BUN 50. Stool in ER light brown heme neg. Last colonoscopy 06/2024- colonic anastomosis normal internal hemorrhoids. She does report time up to 40 pounds in 5 years.
Past Medical History
Stage III Colorectal cancer s/p right hemicolectomy 2022 w/o adjuvant chemo due to age, allergic asthma, hypertension, hypothyroidism, positional vertigo secondary to ICH from fall in 2022
Appendectomy in 1940, ovarian cyst removal and lysis of adhesions in 1954, right breast lumpectomy, left cataract with lens implant, carpal tunnel surgery right hand 2021, right hemicolectomy 2022
Social History
Tobacco: Non-Smoker
Alcohol: None
Family History
Family History: Not Pertinent
Allergies / Home Medications
Allergy/AdvReac Type Severity Reaction Status Date / Time
promethazine Allergy Vomiting Verified 11/10/24 22:29
�Medication �Instructions �Recorded �Confirmed �Type
albuterol sulfate 2.5 mg/3 mL 2.5 mg inhalation TID shortness of 07/19/23 11/10/24 History
(0.083 %) solution for nebulization breath/cough
dextromethorphan-guaifenesin 30 1 tab PO Q12H Congestion 07/19/23 11/10/24 History
mg-600 mg tablet extended
[id number] hr (Mucinex DM)
levothyroxine 50 mcg capsule 50 mcg PO DAILY Thyroid 07/19/23 11/10/24 History
meclizine 12.5 mg tablet 12.5 mg PO PRN PRN positional 07/19/23 11/10/24 History
vertigo
nifedipine 30 mg tablet,extended 30 mg PO DAILY Blood pressure #30 07/29/23 11/10/24 Rx
release tabs
Singulair 10 mg PO DAILY Allergies 11/10/24 11/10/24 History
budesonide 0.5 mg/2 mL suspension 0.5 mg inhalation BID SOB/cough 11/10/24 11/10/24 History
for nebulization
Review of Systems
-
No appetite, no taste
All other systems: Negative unless noted
Physical Exam
Vital Signs
Vital Signs
Temp Pulse Resp BP Pulse Ox
98.3 F 80 20 110/83 96
11/11/24 10:58 11/11/24 10:58 11/11/24 10:58 11/11/24 10:58 11/11/24 10:58
Lab Results
WBC 5.0 10^3/uL (4.8-10.8) 11/11/24 06:47
RBC 2.62 10^6/uL (4.20-5.40) L 11/11/24 06:47
Hgb 7.7 g/dL (12.0-16.0) L 11/11/24 06:47
Hct 23.5 % (37.0-47.0) L 11/11/24 06:47
Plt Count 68 10^3/uL (130-400) L 11/11/24 06:47
Sodium 138 mmol/L (135-145) 11/11/24 06:47
Potassium 3.9 mmol/L (3.5-5.1) 11/11/24 06:47
Chloride 107 mmol/L (98-107) 11/11/24 06:47
Carbon Dioxide 20 mmol/L (22-30) L 11/11/24 06:47
BUN 44 mg/dl (7-17) H 11/11/24 06:47
Creatinine 3.7 mg/dL (0.6-1.0) H 11/11/24 06:47
eGFR 11.27 11/11/24 06:47
Glucose 88 mg/dl (70-99) 11/11/24 06:47
Calcium 8.8 mg/dl (8.4-10.2) 11/11/24 06:47
Albumin 4.0 g/dl (3.5-5.0) 11/10/24 15:38
Laboratory Tests
06/08/24 06/17/24 11/10/24
09:19 13:02 17:02
Hgb 11.0 L
Creatinine 1.4 H
Iron 45
TIBC 225 L
% Saturation 20
Ferritin 225.0
Physical Exam
Patient is awake alert oriented and in no distress. Mood and affect were pleasant, insight and judgment were good. Pupils are equal round and reactive to light, extraocular movements are intact, sclera were anicteric. Hearing was normal, ears and
nose are intact. Oropharynx was clear. Neck was supple with trachea midline and no thyromegaly. Heart was regular rate and rhythm without rubs. Lower extremities without edema. Lungs were clear to auscultation bilaterally and with normal
excursion. Abdomen was soft, nontender, with normal active bowel sounds, and no hepatosplenomegaly. Skin was without rash and with normal turgor.
Data Reviewed
-
Labs: Labs Reviewed by me
Old Records: Reviewed
Assessment/Plan
-
Assessment
BRIANNA
Acute anemia
Thrombocytopenia
Hypertension
History of colon cancer right hemicolectomy
Plan
Check renal ultrasound
Check bladder scan
Check urinalysis
Check fractional excretion of sodium
Follow BMP
Transfuse as needed
Anemia workup per hematology
Given acuity of BRIANNA I doubt the anemia is caused by the renal failure
[2024-11-11] MEDS: MUCINEX 600 MG PO ×2 (11:46→20:51)
--- NOTE | 2024-11-11 12:28 | CM ---
CM reviewed chart, patient seen bedside with spouse, initial assessment completed. Patient resides with her and son in a two story home, no steps to enter (through garage), 13 steps to second floor where bedroom is. Patient reports walker at
home, currently on O2, does not wear home O2. Patient reports [facility] in past, denies SNF. Patient PCP Dr. Campos, pharmacy [facility], confirms prescription coverage. CM will continue to follow for all discharge planning needs.
Plan; home with spouse vs VN watch for possible needs
[2024-11-11] MEDS: OMNIPAQUE 50 ML PO (12:32)
[2024-11-11] MEDS: LR 1000 IV (12:35)
[2024-11-11 13:23] LABS: Urine Albumin 3+ (Neg - Trace); Urine Bilirubin Negative (Negative); Urine Character Clear (Clear); Urine Color Yellow; Urine Glucose Negative (Negative); Urine Ketone Negative (Negative); Urine Leukocyte Negative (Negative); Urine Nitrite Negative (Negative); Urine Occult Blood 2+ (Negative); Urine Specific Gravity 1.015 (<1.030); Urine Urobilinogen Negative (Neg - 1+)
[2024-11-11 14:27] LABS: Urine Sodium 50 mmol/L (30-90)
[2024-11-11 14:52] LABS: Urine Amorphous Seen; Urine Red Blood Cell 0-2 /HPF (0-2)
[2024-11-11 14:53] LABS: Urine White Cell 0-2 /HPF (0-5)
[2024-11-11 14:59] VITALS: BP 110/75
--- NOTE | 2024-11-11 15:11 | W.PN.HOSP.TC ---
Today's Communication/Plan
-
f/u hbg level
f/u renal US
f/u urine studies
Assessment / Plan
Assessment / Plan
1. Normocytic anemia
Thrombocytopenia
-Baseline hemoglobin of 11 and plt 93 in June 18
-Came with Hbg 6.5 and Plt 73K
-Suspected anemia of chronic renal disease
-FOBT neg
-Ferritin 225, TSAT 20% - less likely DEANNA
-S/p 2 U PRBC.
-Hematology evaluated - SPEP/UPEP ordered.
2. 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
-Baseline cr of 1.4 and GFR 36
-came in with cr down to 3.8 and GFR 11
-Urine alb 3+, protein/cr ratio pending.
-UPEP/SPEP has been ordered
-Renal US
-Avoid nephrotoxic medication.
-Nephro consulted for further help.
3. Benign Hypertension
- Stable
- c/w [employer] Nifedipine 30 daily
4. Asthma
- Nebs PRN for wheezing or SOB.
5. Hypothyroidism
- maintain on home dose of levothyroxine
h/o colon cancer s/p hemicolectomy
Varicose vein
History of positional vertigo
History of phlebitis
History of carpal tunnel release
History of right rotator cuff tear
History of ovarian cyst removal
Cataract surgery
Appendectomy
Tonsillectomy
DVT Px: SCD
Full code
Total time spent : 53mins
Anticipated Discharge: 24 - 48 hours
Subjective/Interval History
-
Date of Service: November 11, 2024
Denies having any issues overnight
sitting comfortably in chair
Objective Data
-
Labs:
Laboratory Results
11/11/24
06:47
WBC 5.0
Hgb 7.7 L
Hct 23.5 L
Plt Count 68 L
Sodium 138
Potassium 3.9
Chloride 107
Carbon Dioxide 20 L
BUN 44 H
Creatinine 3.7 H
Glucose 88
Calcium 8.8
Vital Signs:
Vital Signs
Temp Pulse Resp BP Pulse Ox
98.7 F 80 18 110/75 99
11/11/24 14:59 11/11/24 14:59 11/11/24 14:59 11/11/24 14:59 11/11/24 14:59
I&O
11/10/24 11/11/24 11/12/24
06:59 06:59 06:59
Intake Total 500 / 500
Balance 500 / 500
Review of Systems
-
Respiratory: Reports No Symptoms
Cardiac: Reports No Symptoms
Abdomen/GI: Reports No Symptoms
Physical Exam
-
General: No Apparent Distress
Respiratory: Clear to Auscultation; Negative Wheezes or Rhonchi
Cardiac: Regular Rhythm and S1/S2; Negative Murmur
GI: Soft, Nontender and Nondistended
Neuro: Awake, Alert and No Motor Deficits
[2024-11-11 16:29] LABS: Urine Protein 344 mg/dl
[2024-11-11 19:00] VITALS: BP 146/61
[2024-11-11] MEDS: VENTOLIN NEBULES INH (20:04)
[2024-11-11 23:00] VITALS: BP 127/54
[2024-11-12] VITALS (8 sets, daily range): BP systolic 118–144; BP diastolic 48–69; O2SAT 97
[2024-11-12] MEDS: VENTOLIN NEBULES 2.5 MG INH ×5 (03:16→19:43)
[2024-11-12] MEDS: SYNTHROID 50 MCG PO (05:46)
[2024-11-12] MEDS: SINGULAIR 10 MG PO (07:46)
[2024-11-12] MEDS: MUCINEX 600 MG PO ×2 (07:46→19:37)
[2024-11-12] MEDS: PROCARDIA XL (EXTENDED RELEASE) 30 MG PO (07:47)
[2024-11-12] MEDS: PULMICORT 0.5 MG INH ×2 (07:53→19:43)
[2024-11-12 08:54] LABS: % Basophils 0.2 % (0-2); % Eosinophils 1.6 % (0-6); % Immature Granulocytes 1.1 % (0-0.5); % Lymphocytes 9.5 % (20.5-51.1); % Monocytes 6.1 % (1.7-9.3); % Neutrophils 81.5 % (42.2-75.2); Absolute Eosinophils 0.1 10^3/uL (0-0.7); Absolute Immature Granulocytes 0.1 10^3/uL (0-0.05); Absolute Lymphocytes 0.5 10^3/uL (1.2-3.4); Absolute Monocytes 0.3 10^3/uL (0.1-0.6); Absolute Neutrophils 4.6 10^3/uL (1.4-6.5); Hematocrit 24.2 % (37.0-47.0); Hemoglobin 7.9 g/dL (12.0-16.0); Mean Corp Hgb Conc. 32.6 g/dL (33.0-37.0); Mean Corpuscular Hgb 29.6 pg (27.0-31.0); Mean Corpuscular Volume 90.6 fL (81.0-99.0); Mean Platelet Volume 12.2 fL (7.4-10.4); Nucleated Red Blood Cells % 0 %; Platelet Count 64 10^3/uL (130-400); Red Blood Cell Count 2.67 10^6/uL (4.20-5.40); Red Cell Dist. Width 18.6 % (11.5-14.5); White Blood Cell Count 5.6 10^3/uL (4.8-10.8)
[2024-11-12 08:57] LABS: Blood Urea Nitrogen 41 mg/dl (7-17); Calcium 8.6 mg/dl (8.4-10.2); Carbon Dioxide 21 mmol/L (22-30); Chloride 109 mmol/L (98-107); Estimated Creatinine Clearance 9 ml/min; Glucose 92 mg/dl (70-99); Potassium 4.2 mmol/L (3.5-5.1); Sodium 137 mmol/L (135-145); eGFR 12.05
--- NOTE | 2024-11-12 10:21 | W.PN.ONC2 ---
Today's Communication / Plan
-
Pending Urine/Serum SPEP, LC ratio, IGs
Follow for EPO, Haptoglobin
Transfuse plts if needed
Impression
Impression
89 year old female
Symptomatic Anemia
Thrombocytopenia
BRIANNA
H/o Stage III Colon Cancer s/p R Hemicolectomy
New Heart Murmur?
Plan
Plan
#Symptomatic Anemia, likely secondary to progression of CKD
- hgb on admission 6.5, s/p 2U pRBC w/ sx improvement
- Macrocytic on admission, now normocytic. Hgb stable after transfusion
- Iron studies are wnl, b12 and folate wnl. LDH and reticulocyte wnl. EPO pending. Haptoglobin pending.
- transfuse if hgb <7g/dL
Suspicious for anemia as a consequence of acute renal failure
#BRIANNA vs. BRIANNA on CKD
- [employer] Swe[employer] Operator was 1.4 in 05/2024 and now 3.8 on admission. eGFR 10-11 from 36 in 05/2024
- Given acute onset of worsening renal failure, anemia, and age, would be suspicious for MM, possibly light chain predominant disease given wnl albumin and low total protein. Though, her calcium is presently wnl and she does not report bone pain at
this time.
- Pending Serum/urine SPEP, serum free LC ratio, quantitative immunoglobulins. Will follow results
#Thrombocytopenia, acute on chronic
- Plts from 2022 in the 90s-150s, now 70s-60s. No obvious signs of bleeding, stool heme neg.
- Stable low platelet count at this time w/o signs of bleeding. Will observe for now, and can consider outpatient workup, pending serum/urine testing, with potential BM Bx.
- c/t trend CBC, transfuse if plts <50,000
#H/o Stage III Colon Cancer s/p R Hemicolectomy
- Was offered adjuvant chemo at that time, however she ultimately decided against it given successful surgical resection w/ negative margins and potential consequences of chemo at her age.
- Repeat colonoscopy in 2023 showed normal appearing internal hemorrhoids with no new polyps or masses.
- last CT of the chest/abd/pelvis was done in 2022. Given that she was undertreated, at the time of diagnosis and her last imaging scan was >1 year ago, given new symptoms of unexplained anemia, ordered CT Chest/abd/pelvis with oral contrast and
serum CEA.
- CT showing stable renal lesion, likely benign complex cyst, with no evidence for metastatic disease to the chest, abdomen or pelvis.
- CEA was within normal limits and not significantly elevated from prior
Suspicion low at this time for recurrence of Colon Cancer as a contributing factor to her current presentation
#New Heart Murmur?
- Systolic murmur on exam, patient states this was found by Dr. Thompson in the OP office, suggested Echo
- Possible consequence of her severe anemia
Subjective/Objective
Chief Complaint
Anemia
Subjective
Patient is feeling well today. She was able to get up, use the facilities and wash her hair. Her shortness of breath is better, particularly after a nebulizer treatment. Her weakness has improved s/p transfusion. She has no new symptoms or acute
complaints.
Vital Signs:
Vital Signs
Temp Pulse Resp BP Pulse Ox
99.1 F 84 16 144/68 94
11/12/24 07:37 11/12/24 07:55 11/12/24 07:55 11/12/24 07:47 11/12/24 08:00
Lab Results:
Laboratory Data
WBC 5.6 10^3/uL (4.8-10.8) 11/12/24 08:10
Hgb 7.9 g/dL (12.0-16.0) L 11/12/24 08:10
Plt Count 64 10^3/uL (130-400) L 11/12/24 08:10
eGFR 12.05 11/12/24 08:10
Physical Exam
HEENT: Moist Mucous Membranes
Cardiology: Normal Sinus Rhythm, S1, S2 and Murmur (systolic murmur)
Pulmonary: Rales (minimal scattered rales); No Wheezes or Rhonchi
GI: Soft and Normal Bowel Sounds; No Distended
Extremities: No C/C/E
Review of Systems
Review of Systems
Constitutional: Denies Fever or Fatigue
Head: Denies Sore Throat or Hearing Loss
Respiratory: Reports Cough; Denies Dyspnea
Cardiovascular: Denies Chest Pain or Palpitations
Gastrointestinal: Denies Nausea/Vomiting or Diarrhea
Genitourinary: Denies Hematuria
Skin: Denies Rash
Neurological: Denies Headache
Hem/Lymphatic: Denies Night Sweats
Orders
Orders
Orders From Last 24 Hours
11/11/24 10:00
Guaifenesin [Mucinex] 600 mg PO Q12
11/11/24 11:04
CT Chest/abd/pel Wo Iv Cont Routine
11/11/24 11:05
Add On- LAB Routine
11/11/24 11:15
Iohexol [Omnipaque] See Protocol PO ONCE ONE
11/11/24 12:30
Iohexol [Omnipaque] See Protocol PO ONCE ONE
--- NOTE | 2024-11-12 12:23 | W.PN.NEPH.PH ---
Today's Communication / Plan
-
Workup of proteinuria
Assessment/Plan
-
Assessment
BRIANNA
Acute anemia
Thrombocytopenia
Hypertension
History of colon cancer right hemicolectomy
Plan
Workup of proteinuria ordered
Follow BMP
I discussed with the patient at length as well as her regarding her BRIANNA as well as the nephrotic range proteinuria. Diagnostic evaluation will be pursued though I am not sure that treatment would be practical. She did state that she had
refused chemotherapy particularly because of the high risk at her age. This would parallel treatment of her proteinuria as well
-
-
Date of Service: November 12, 2024
CC / HPI / ROS
-
Chief Complaint:
BRIANNA
History of Present Illness:
BRIANNA/creatinine slightly better at 3.5
Nephrotic range proteinuria
BP stable
Hemoglobin slightly better at 7.9
Review of Systems:
No chest pain or shortness of breath
Labs
-
Labs:
WBC 5.6 10^3/uL (4.8-10.8) 11/12/24 08:10
RBC 2.67 10^6/uL (4.20-5.40) L 11/12/24 08:10
Hgb 7.9 g/dL (12.0-16.0) L 11/12/24 08:10
Hct 24.2 % (37.0-47.0) L 11/12/24 08:10
Plt Count 64 10^3/uL (130-400) L 11/12/24 08:10
Sodium 137 mmol/L (135-145) 11/12/24 08:10
Potassium 4.2 mmol/L (3.5-5.1) 11/12/24 08:10
Chloride 109 mmol/L (98-107) H 11/12/24 08:10
Carbon Dioxide 21 mmol/L (22-30) L 11/12/24 08:10
BUN 41 mg/dl (7-17) H 11/12/24 08:10
Creatinine 3.5 mg/dL (0.6-1.0) H 11/12/24 08:10
eGFR 12.05 11/12/24 08:10
Glucose 92 mg/dl (70-99) 11/12/24 08:10
Calcium 8.6 mg/dl (8.4-10.2) 11/12/24 08:10
Albumin 4.0 g/dl (3.5-5.0) 11/10/24 15:38
Physical Exam
-
Vital Signs:
Vital Signs
Temp Pulse Resp BP Pulse Ox
98.9 F 89 16 131/53 95
11/12/24 11:30 11/12/24 11:30 11/12/24 11:30 11/12/24 11:30 11/12/24 11:11
Cardiovascular:: Regular rate and rhythm
Respiratory:: Bilateral: Coarse
Lung Excursion:: Normal
Abdomen:: Nontender and Soft
Bowel Sounds:: Normal
Extremity Edema:: +1: Bilateral:
[2024-11-12 13:13] LABS: Complement C3 101 mg/dl (88-165)
--- NOTE | 2024-11-12 13:24 | W.PN.HOSP.TC ---
Today's Communication/Plan
-
f/u urine and serological test - see note
f/u EPO level
f/u hbg/cr
Assessment / Plan
Assessment / Plan
1. Normocytic anemia
Thrombocytopenia
-Baseline hemoglobin of 11 and plt 93 in June 18
-Came with Hbg 6.5 and Plt 73K
-Suspected anemia of chronic renal disease
-FOBT neg
-Ferritin 225, TSAT 20% - less likely DEANNA
-S/p 2 U PRBC.
-Hematology evaluated - SPEP/UPEP ordered.
2. 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
Nephrotic range proteinuria
-Baseline cr of 1.4 and GFR 36
-came in with cr down to 3.8 and GFR 11
-Urine alb 3+, protein/cr ratio of 4. 24hr urine collection ordered.
-UPEP/SPEP has been ordered. Complement within normal limit. Vasculitis panel/KIMI/Anti-PLA2 level pending
-Renal US showed medical renal disease.
-Avoid nephrotoxic medication.
3. Benign Hypertension
- Stable
- c/w PEPPER CUTTER Nifedipine 30 daily
4. Asthma
- Nebs PRN for wheezing or SOB.
5. Hypothyroidism
- maintain on home dose of levothyroxine
6. Complex renal cyst
-Will require MRI/CT with contrast, not feasible with current worsening renal function
-will need to f/u with urology in office.
h/o colon cancer s/p hemicolectomy
Varicose vein
History of positional vertigo
History of phlebitis
History of carpal tunnel release
History of right rotator cuff tear
History of ovarian cyst removal
Cataract surgery
Appendectomy
Tonsillectomy
DVT Px: SCD
Full code
Total time spent : 54mins
Case discussed with nephrology
Patient family updated at bedside
Anticipated Discharge: 24 - 48 hours
Subjective/Interval History
-
Date of Service: November 12, 2024
Remains on oxygen through nasal cannula
Have some lower abdominal discomfort
no other problems
Objective Data
-
Labs:
Laboratory Results
11/12/24
08:10
WBC 5.6
Hgb 7.9 L
Hct 24.2 L
Plt Count 64 L
Sodium 137
Potassium 4.2
Chloride 109 H
Carbon Dioxide 21 L
BUN 41 H
Creatinine 3.5 H
Glucose 92
Calcium 8.6
Vital Signs:
Vital Signs
Temp Pulse Resp BP Pulse Ox
98.9 F 89 16 131/53 95
11/12/24 11:30 11/12/24 11:30 11/12/24 11:30 11/12/24 11:30 11/12/24 11:11
I&O
11/11/24 11/12/24 11/13/24
06:59 06:59 06:59
Intake Total 500 / 500 1220 / 1220
Output Total 300 / 300
Balance 500 / 500 920 / 920
Review of Systems
-
Respiratory: Reports No Symptoms
Cardiac: Reports No Symptoms
Abdomen/GI: Reports Abdominal Pain; Denies Nausea or Vomiting
Physical Exam
-
General: No Apparent Distress
Respiratory: Clear to Auscultation; Negative Wheezes or Rhonchi
Cardiac: Regular Rhythm and S1/S2; Negative Murmur
GI: Soft, Nontender and Nondistended
Neuro: Awake, Alert and No Motor Deficits
--- NOTE | 2024-11-12 14:40 | CM ---
CM reviewed chart, patient seen in chair with spouse. CM discussed PT recommendations of VN, patient declining at this time. Patient remains on O2- watch for home O2 needs. CM will continue to follow for all discharge planning needs.
Plan; home with spouse, declining VN, watch for home O2 needs.
[2024-11-12 16:28] LABS: Erythropoietin (EPO) 10 mU/mL (4-27)
[2024-11-13] VITALS (7 sets, daily range): BP systolic 119–160; BP diastolic 48–96; PULSE 103; O2SAT 93
[2024-11-13] MEDS: TYLENOL 650 MG PO ×2 (02:27→20:21)
[2024-11-13] MEDS: VENTOLIN NEBULES 2.5 MG INH ×5 (02:32→20:29)
[2024-11-13] MEDS: SYNTHROID 50 MCG PO (06:02)
[2024-11-13 06:31] LABS: Haptoglobin 108 mg/dL (30-200)
[2024-11-13] MEDS: PULMICORT 0.5 MG INH ×2 (07:50→20:29)
[2024-11-13] MEDS: MUCINEX 600 MG PO ×2 (07:59→20:21)
[2024-11-13] MEDS: PROCARDIA XL (EXTENDED RELEASE) 30 MG PO (07:59)
[2024-11-13] MEDS: SINGULAIR 10 MG PO (07:59)
[2024-11-13 09:17] LABS: % Basophils 0.2 % (0-2); % Eosinophils 1.9 % (0-6); % Immature Granulocytes 1.3 % (0-0.5); % Lymphocytes 11.1 % (20.5-51.1); % Monocytes 5.8 % (1.7-9.3); % Neutrophils 79.7 % (42.2-75.2); Absolute Eosinophils 0.1 10^3/uL (0-0.7); Absolute Immature Granulocytes 0.1 10^3/uL (0-0.05); Absolute Lymphocytes 0.5 10^3/uL (1.2-3.4); Absolute Monocytes 0.3 10^3/uL (0.1-0.6); Absolute Neutrophils 3.7 10^3/uL (1.4-6.5); Hematocrit 23.6 % (37.0-47.0); Hemoglobin 7.7 g/dL (12.0-16.0); Mean Corp Hgb Conc. 32.6 g/dL (33.0-37.0); Mean Corpuscular Hgb 29.8 pg (27.0-31.0); Mean Corpuscular Volume 91.5 fL (81.0-99.0); Mean Platelet Volume 12.4 fL (7.4-10.4); Nucleated Red Blood Cells % 0 %; Platelet Count 62 10^3/uL (130-400); Red Blood Cell Count 2.58 10^6/uL (4.20-5.40); Red Cell Dist. Width 17.7 % (11.5-14.5); White Blood Cell Count 4.7 10^3/uL (4.8-10.8)
[2024-11-13 09:36] LABS: Blood Urea Nitrogen 46 mg/dl (7-17); Calcium 8.7 mg/dl (8.4-10.2); Carbon Dioxide 20 mmol/L (22-30); Chloride 109 mmol/L (98-107); Estimated Creatinine Clearance 9 ml/min; Glucose 91 mg/dl (70-99); Sodium 136 mmol/L (135-145); eGFR 12.05
--- NOTE | 2024-11-13 13:23 | W.PN.NEPH.PH ---
Today's Communication / Plan
-
Await serologies and urine studies
No acute indication for dialysis
Continue supportive care
Assessment/Plan
-
Assessment
BRIANNA
Acute anemia
Thrombocytopenia= chronic
Hypertension
History of colon cancer right hemicolectomy
Plan
Creatinine as of May 2024 was 1.4 and August 2023 0.8
Workup of proteinuria ordered= protein creatinine ratio 4 g
Follow BMP
Refused chemotherapy in the past because of high risk with age.
Discussed aggressive renal intervention including biopsies and treatment as there would be same risk as above.
Creatinine stable at 3.5
Renal ultrasound shows chronic kidney disease and increased echogenicity and indication of a complex cyst along the right kidney possible neoplasm cannot be excluded per radiology read.= Consider urological evaluation though unlikely any further
treatment at her age.
Workup pending including 24-hour urine and paraproteinemia workup.
No acute need for dialysis though not much room for any further decline as her estimated GFR is 9 mL/min using the MDRD equation.
Serological workup pending
Total Time Spent with Patient (in minutes): 31
-
-
Date of Service: November 13, 2024
CC / HPI / ROS
-
Chief Complaint:
BRIANNA
History of Present Illness:
BRIANNA/creatinine slightly better at 3.5
Nephrotic range proteinuria
BP stable
Hemoglobin slightly better at 7.9
Review of Systems:
No chest pain or shortness of breath
Labs
-
Labs:
WBC 4.7 10^3/uL (4.8-10.8) L 11/13/24 08:25
RBC 2.58 10^6/uL (4.20-5.40) L 11/13/24 08:25
Hgb 7.7 g/dL (12.0-16.0) L 11/13/24 08:25
Hct 23.6 % (37.0-47.0) L 11/13/24 08:25
Plt Count 62 10^3/uL (130-400) L 11/13/24 08:25
Sodium 136 mmol/L (135-145) 11/13/24 08:25
Potassium 4.0 mmol/L (3.5-5.1) 11/13/24 08:25
Chloride 109 mmol/L (98-107) H 11/13/24 08:25
Carbon Dioxide 20 mmol/L (22-30) L 11/13/24 08:25
BUN 46 mg/dl (7-17) H 11/13/24 08:25
Creatinine 3.5 mg/dL (0.6-1.0) H 11/13/24 08:25
eGFR 12.05 11/13/24 08:25
Glucose 91 mg/dl (70-99) 11/13/24 08:25
Calcium 8.7 mg/dl (8.4-10.2) 11/13/24 08:25
Albumin 4.0 g/dl (3.5-5.0) 11/10/24 15:38
Physical Exam
-
Vital Signs:
Vital Signs
Temp Pulse Resp BP Pulse Ox
98.0 F 82 18 120/48 95
11/13/24 11:00 11/13/24 11:06 11/13/24 11:06 11/13/24 11:00 11/13/24 11:06
Cardiovascular:: Regular rate and rhythm
Respiratory:: Bilateral: Coarse
Lung Excursion:: Normal
Abdomen:: Nontender and Soft
Bowel Sounds:: Normal
Extremity Edema:: +1: Bilateral:
--- NOTE | 2024-11-13 14:19 | W.PN.HOSP.TC ---
Today's Communication/Plan
-
see note
Assessment / Plan
Assessment / Plan
1. Normocytic anemia
Thrombocytopenia
-Baseline hemoglobin of 11 and plt 93 in June 18
-Came with Hbg 6.5 and Plt 73K
-Suspected anemia of chronic renal disease
-FOBT neg. EPO 10 (WNL)
-Ferritin 225, TSAT 20% - less likely DEANNA
-S/p 2 U PRBC.
-Hematology evaluated - SPEP/UPEP pending
2. 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
Nephrotic range proteinuria
-Baseline cr of 1.4 and GFR 36
-came in with cr down to 3.8 and GFR 11
-Urine alb 3+, protein/cr ratio of 4. 24hr urine collection ordered.
-UPEP/SPEP has been ordered. Complement within normal limit. Vasculitis panel/KIIM/Anti-PLA2 level pending
-Renal US showed medical renal disease.
-CT c/a/p didnot show any concern of relapsed malignancy.
-Avoid nephrotoxic medication.
3. Benign Hypertension
- Stable
- c/w ISOTOPE HYDROLOGIST Nifedipine 30 daily
4. Asthma
- Nebs PRN for wheezing or SOB.
5. Hypothyroidism
- maintain on home dose of levothyroxine
6. Complex renal cyst
-Will require MRI/CT with contrast, not feasible with current worsening renal function
-will need to f/u with urology in office.
7. Acute hypoxic resp insufficiency
-reason unclear
-CT chest showing minor GGO
-minimal pulmonary edema? with CKD. hold on lasix with renal function.
h/o colon cancer s/p hemicolectomy
Varicose vein
History of positional vertigo
History of phlebitis
History of carpal tunnel release
History of right rotator cuff tear
History of ovarian cyst removal
Cataract surgery
Appendectomy
Tonsillectomy
DVT Px: SCD
Full code
Care plan discussed with patient family at bedside
Discussed with nephrology
Total time spent : 52 mins
Anticipated Discharge: 24 - 48 hours
Subjective/Interval History
-
Date of Service: November 13, 2024
Resting comfortably in chair
remains on o2 through NC
Objective Data
-
Labs:
Laboratory Results
11/13/24
08:25
WBC 4.7 L
Hgb 7.7 L
Hct 23.6 L
Plt Count 62 L
Sodium 136
Potassium 4.0
Chloride 109 H
Carbon Dioxide 20 L
BUN 46 H
Creatinine 3.5 H
Glucose 91
Calcium 8.7
Vital Signs:
Vital Signs
Temp Pulse Resp BP Pulse Ox
98.0 F 82 18 120/48 95
11/13/24 11:00 11/13/24 11:06 11/13/24 11:06 11/13/24 11:00 11/13/24 11:06
I&O
11/12/24 11/13/24 11/14/24
06:59 06:59 06:59
Intake Total 1220 / 1220 1560 / 1560
Output Total 300 / 300
Balance 920 / 920 1560 / 1560
Review of Systems
-
Respiratory: Reports Cough
Cardiac: Reports No Symptoms
Abdomen/GI: Reports No Symptoms
Physical Exam
-
General: No Apparent Distress
HEENT: Oxygen (3 LNC)
Respiratory: Clear to Auscultation; Negative Wheezes or Rhonchi
Cardiac: Regular Rhythm and S1/S2; Negative Murmur
GI: Soft, Nontender and Nondistended
Neuro: Awake, Alert and No Motor Deficits
--- NOTE | 2024-11-13 16:15 | W.PN.ONC2 ---
Documented by User: Deshawn Sparrow MD, Resident 11/13/24 16:22
Today's Communication / Plan
-
Pending Urine/Serum PEP
Impression
Impression
89 year old female
Symptomatic Anemia
Thrombocytopenia
BRIANNA
H/o Stage III Colon Cancer s/p R Hemicolectomy
New Heart Murmur?
Plan
Plan
#Symptomatic Anemia, likely secondary to progression of CKD
- hgb on admission 6.5, s/p 2U pRBC w/ sx improvement
- Macrocytic on admission, now normocytic. Hgb stable after transfusion
- Iron studies are wnl, b12 and folate wnl. LDH and reticulocyte wnl. EPO 10, lower than expected given hematocrit. Haptoglobin wnl.
- transfuse if hgb <7g/dL
Suspicious for anemia as a consequence of acute renal failure with insufficient EPO response to anemia. Appreciate nephro recs
#BRIANNA vs. BRIANNA on CKD
- Ramp Service Man was 1.4 in 05/2024 and now 3.8 on admission. eGFR 10-11 from 36 in 05/2024
- Given acute onset of worsening renal failure, anemia, and age, would be suspicious for MM, possibly light chain predominant disease given wnl albumin and low total protein. Though, her calcium is presently wnl and she does not report bone pain at
this time.
- Pending Serum/urine SPEP, serum free LC ratio, quantitative immunoglobulins. Will follow results
#Thrombocytopenia, acute on chronic
- Plts from 2022 in the 90s-150s, now 70s-60s. No obvious signs of bleeding, stool heme neg.
- Stable low platelet count at this time w/o signs of bleeding. Will observe for now, and can consider outpatient workup, pending serum/urine testing, with potential BM Bx.
- c/t trend CBC, transfuse if plts <50,000
#H/o Stage III Colon Cancer s/p R Hemicolectomy
- Was offered adjuvant chemo at that time, however she ultimately decided against it given successful surgical resection w/ negative margins and potential consequences of chemo at her age.
- Repeat colonoscopy in 2023 showed normal appearing internal hemorrhoids with no new polyps or masses.
- last CT of the chest/abd/pelvis was done in 2022. Given that she was undertreated, at the time of diagnosis and her last imaging scan was >1 year ago, given new symptoms of unexplained anemia, ordered CT Chest/abd/pelvis with oral contrast and
serum CEA.
- CT showing stable renal lesion, likely benign complex cyst, with no evidence for metastatic disease to the chest, abdomen or pelvis.
- CEA was within normal limits and not significantly elevated from prior
Suspicion low at this time for recurrence of Colon Cancer as a contributing factor to her current presentation
#New Heart Murmur?
- Systolic murmur on exam, patient states this was found by Dr. Thompson in the OP office, suggested Echo
- Possible consequence of her severe anemia
Subjective/Objective
Chief Complaint
Anemia
Subjective
Feeling well today, no acute complaints.
Vital Signs:
Vital Signs
Temp Pulse Resp BP Pulse Ox
99.2 F 102 22 130/61 96
11/13/24 15:00 11/13/24 15:00 11/13/24 15:00 11/13/24 15:00 11/13/24 15:00
Lab Results:
Laboratory Data
WBC 4.7 10^3/uL (4.8-10.8) L 11/13/24 08:25
Hgb 7.7 g/dL (12.0-16.0) L 11/13/24 08:25
Plt Count 62 10^3/uL (130-400) L 11/13/24 08:25
eGFR 12.05 11/13/24 08:25
Physical Exam
HEENT: Moist Mucous Membranes
Cardiology: Normal Sinus Rhythm, S1, S2 and Murmur
Pulmonary: Clear
GI: Soft and Normal Bowel Sounds
Extremities: No C/C/E
Neuro: Non Focal
Review of Systems
Review of Systems
Constitutional: Denies Fever or Fatigue
Head: Denies Sore Throat
Respiratory: Reports Cough; Denies Dyspnea
Cardiovascular: Denies Chest Pain or Palpitations
Gastrointestinal: Denies Nausea/Vomiting or Diarrhea
Genitourinary: Denies Hematuria
Skin: Denies Rash or Pruritis
Neurological: Denies Headache or Numbness
Psychiatric: Denies Depression
Hem/Lymphatic: Denies Easy Bruising or Night Sweats

Documented by User: Mahesh Oliva MD 11/13/24 16:53
Plan
Plan
#Symptomatic Anemia, likely secondary to progression of CKD
- hgb on admission 6.5, s/p 2U pRBC w/ sx improvement
- Macrocytic on admission, now normocytic. Hgb stable after transfusion
- Iron studies are wnl, b12 and folate wnl. LDH and reticulocyte wnl. EPO 10, lower than expected given hematocrit. Haptoglobin wnl.
- transfuse if hgb <7g/dL
Suspicious for anemia as a consequence of acute renal failure with insufficient EPO response to anemia. Appreciate nephro recs
#BRIANNA vs. BRIANNA on CKD
- Ramp Service Man was 1.4 in 05/2024 and now 3.8 on admission. eGFR 10-11 from 36 in 05/2024
- Given acute onset of worsening renal failure, anemia, and age, would be suspicious for MM, possibly light chain predominant disease given wnl albumin and low total protein. Though, her calcium is presently wnl and she does not report bone pain at
this time.
- Pending Serum/urine SPEP, serum free LC ratio, quantitative immunoglobulins. Will follow results
#Thrombocytopenia, acute on chronic
- Plts from 2022 in the 90s-150s, now 70s-60s. No obvious signs of bleeding, stool heme neg.
- Stable low platelet count at this time w/o signs of bleeding. Will observe for now, and can consider outpatient workup, pending serum/urine testing, with potential BM Bx.
- c/t trend CBC, transfuse if plts <50,000
#H/o Stage III Colon Cancer s/p R Hemicolectomy
- Was offered adjuvant chemo at that time, however she ultimately decided against it given successful surgical resection w/ negative margins and potential consequences of chemo at her age.
- Repeat colonoscopy in 2023 showed normal appearing internal hemorrhoids with no new polyps or masses.
- last CT of the chest/abd/pelvis was done in 2022. Given that she was undertreated, at the time of diagnosis and her last imaging scan was >1 year ago, given new symptoms of unexplained anemia, ordered CT Chest/abd/pelvis with oral contrast and
serum CEA.
- CT showing stable renal lesion, likely benign complex cyst, with no evidence for metastatic disease to the chest, abdomen or pelvis.
- CEA was within normal limits and not significantly elevated from prior
Suspicion low at this time for recurrence of Colon Cancer as a contributing factor to her current presentation
#New Heart Murmur?
- Systolic murmur on exam, patient states this was found by Dr. Thompson in the OP office, suggested Echo
- Possible consequence of her severe anemia
Hematology Addedum:
Agree w/ resident note and plan as outlined
-continue to monitor CBC
-SPEP/ QIGs/ light chains pending
[2024-11-13 17:34] LABS: Myeloperoxidase Antibody 1 AU/mL (0-19); Serine Protease-3, IgG 0 AU/mL (0-19)
--- NOTE | 2024-11-13 20:35 | W.PN.UPDATE ---
Update Note
Progress Note Update
Patient w/new fever, oral temp 102.2. Requiring supplemental oxygen, O2 sat on room air 88%, applied 2L NC, sat 95%.
Ordered: CBC, BMP, flu, COVID, CXR, UA, CXR
Lab results, No leukocytosis, Hgb 8.1 (previous 7.7). Flu and COVID both negative.�
CXR -�Prominent pulmonary vascular markings suggest mild interstitial edema. Repeat temp at 2300, 98.9.
[2024-11-13 21:10] LABS: Blood Urea Nitrogen 47 mg/dl (7-17); Calcium 8.8 mg/dl (8.4-10.2); Carbon Dioxide 24 mmol/L (22-30); Chloride 104 mmol/L (98-107); Estimated Creatinine Clearance 9 ml/min; Glucose 109 mg/dl (70-99); Potassium 4.2 mmol/L (3.5-5.1); Sodium 134 mmol/L (135-145); eGFR 12.48
[2024-11-13 21:13] LABS: Hematocrit 24.8 % (37.0-47.0); Hemoglobin 8.1 g/dL (12.0-16.0); Mean Corp Hgb Conc. 32.7 g/dL (33.0-37.0); Mean Corpuscular Hgb 29.8 pg (27.0-31.0); Mean Corpuscular Volume 91.2 fL (81.0-99.0); Mean Platelet Volume 11.8 fL (7.4-10.4); Platelet Count 75 10^3/uL (130-400); Red Blood Cell Count 2.72 10^6/uL (4.20-5.40); Red Cell Dist. Width 17.4 % (11.5-14.5)
[2024-11-13 21:51] LABS: COVID-19 Antigen Negative (Negative)
[2024-11-13 22:02] LABS: ANA, IgG Reflex to HEp-2 None Detected (None Detected)
[2024-11-13 23:53] LABS: 24 Hour Urine Total Volume 1600 ml
[2024-11-13 23:57] LABS: Urine Albumin 3+ (Neg - Trace); Urine Bilirubin Negative (Negative); Urine Character Clear (Clear); Urine Color Yellow; Urine Glucose Negative (Negative); Urine Ketone Negative (Negative); Urine Leukocyte 1+ (Negative); Urine Nitrite Negative (Negative); Urine Occult Blood 3+ (Negative); Urine Specific Gravity 1.015 (<1.030); Urine Urobilinogen Negative (Neg - 1+)
[2024-11-14 00:25] LABS: 24 Hour Urine Creatinine 0.552 gm/day (0.8-1.8); Urine Protein 129 mg/dl (0-12)
[2024-11-14 00:48] LABS: Urine Bacteria Moderate (Negative); Urine Red Blood Cell 0-2 /HPF (0-2); Urine White Cell 16-20 /HPF (0-5)
[2024-11-14 02:46] LABS: Phospholipase A2 Receptor, IgG <1:10 (<1:10)
[2024-11-14 03:22] VITALS: BP 152/62
[2024-11-14] MEDS: VENTOLIN NEBULES 2.5 MG INH ×5 (03:38→20:35)
[2024-11-14 04:59] LABS: Albumin 3.47 g/dL (3.75-5.01); Alpha 2 Globulin 0.58 g/dL (0.48-1.05); Free Kappa Light Chains,Quant 21.49 mg/L (3.30-19.40); Free Lambda Light Chains,Quant 4138.74 mg/L (5.71-26.30); IgA 33 mg/dL (68-408); IgG 434 mg/dL (768-1632); IgM 21 mg/dL (35-263); Immunofixation Electrophoresis IFE Done; Kappa/Lambda Fr Light Ratio 0.01 (0.26-1.65); Monoclonal Protein 0.29 g/dL (<=0.00); Total Protein-Electrophoresis 5.5 g/dL (6.3-8.2)
[2024-11-14] MEDS: SYNTHROID 50 MCG PO (06:18)
[2024-11-14 07:00] VITALS: BP 145/68
[2024-11-14] MEDS: PULMICORT 0.5 MG INH ×2 (07:45→20:35)
[2024-11-14] MEDS: MUCINEX 600 MG PO ×2 (08:25→20:40)
[2024-11-14] MEDS: PROCARDIA XL (EXTENDED RELEASE) 30 MG PO (08:25)
[2024-11-14] MEDS: SINGULAIR 10 MG PO (08:25)
[2024-11-14] MEDS: VIBRAMYCIN 100 MG PO ×2 (10:00→20:40)
[2024-11-14] MEDS: STERILE WATER FOR INJECTION 10 ML IV (10:01)
[2024-11-14] MEDS: ROCEPHIN 1000 MG IV (10:02)
--- NOTE | 2024-11-14 12:01 | W.PN.NEPH.PH ---
Addendum entered and electronically signed by Yosef Jones DO 11/14/24 12:18:
Discussed with oncology as to the paraproteinemia results appears to be myeloma. They will start her on steroid
No renal biopsy indicated
Original Note:
Today's Communication / Plan
-
Await serologies
Discussed potential biopsy
Assessment/Plan
-
Assessment
BRIANNA
Acute anemia
Thrombocytopenia= chronic
Hypertension
History of colon cancer right hemicolectomy
Plan
Creatinine as of May 2024 was 1.4 and August 2023 0.8
Workup of proteinuria ordered= protein creatinine ratio 4 g/24-hour protein just 2 g
Follow BMP
Decided against chemotherapy in the past because of high risk with age.
Discussed aggressive renal intervention including biopsies and treatment as there would be same risk as above.
Creatinine stable at 3.5
Renal ultrasound shows chronic kidney disease and increased echogenicity and indication of a complex cyst along the right kidney possible neoplasm cannot be excluded per radiology read.= Consider urological evaluation though unlikely any further
treatment at her age.
Workup pending including 24-hour urine and paraproteinemia workup.= 24-hour protein only 2 g nonnephrotic range
No acute need for dialysis though not much room for any further decline as her estimated GFR is 9 mL/min using the MDRD equation.
Serological workup pending= appears may be a monoclonal protein but normal ratio on serum electrophoresis will defer to oncology
A long discussion with her about possibilities of a renal biopsy. Will continue to await serologies. She is not adverse to kidney biopsy
-
-
Date of Service: November 14, 2024
CC / HPI / ROS
-
Chief Complaint:
BRIANNA
History of Present Illness:
BRIANNA/creatinine slightly better at 3.5
Proteinuria nonnephrotic range with 24-hour
BP stable
Hemoglobin slightly better at 7.9
Review of Systems:
No chest pain or shortness of breath
Labs
-
Labs:
WBC 6.0 10^3/uL (4.8-10.8) 11/13/24 20:46
RBC 2.72 10^6/uL (4.20-5.40) L 11/13/24 20:46
Hgb 8.1 g/dL (12.0-16.0) L 11/13/24 20:46
Hct 24.8 % (37.0-47.0) L 11/13/24 20:46
Plt Count 75 10^3/uL (130-400) L D 11/13/24 20:46
Sodium 134 mmol/L (135-145) L 11/13/24 20:46
Potassium 4.2 mmol/L (3.5-5.1) 11/13/24 20:46
Chloride 104 mmol/L (98-107) 11/13/24 20:46
Carbon Dioxide 24 mmol/L (22-30) 11/13/24 20:46
BUN 47 mg/dl (7-17) H 11/13/24 20:46
Creatinine 3.4 mg/dL (0.6-1.0) H 11/13/24 20:46
eGFR 12.48 11/13/24 20:46
Glucose 109 mg/dl (70-99) H 11/13/24 20:46
Calcium 8.8 mg/dl (8.4-10.2) 11/13/24 20:46
Albumin 4.0 g/dl (3.5-5.0) 11/10/24 15:38
Physical Exam
-
Vital Signs:
Vital Signs
Temp Pulse Resp BP Pulse Ox
98.0 F 85 14 145/68 94
11/14/24 07:00 11/14/24 11:20 11/14/24 11:20 11/14/24 07:00 11/14/24 11:20
Cardiovascular:: Regular rate and rhythm
Respiratory:: Bilateral: CTA
Lung Excursion:: Normal
Abdomen:: Nontender and Soft
Bowel Sounds:: Normal
Extremity Edema:: None: Bilateral:
--- NOTE | 2024-11-14 12:17 | W.PN.ONC2 ---
Today's Communication / Plan
-
- FLC ratio c/w lambda light chain MM.
- check skeletal survey.
- high dose dex x 4 days, TLS lab monitoring.
Impression
Impression
89 year old female
lambda light chain multiple myeloma
Symptomatic Anemia
Thrombocytopenia
BRIANNA
H/o Stage III Colon Cancer s/p R Hemicolectomy
New Heart Murmur?
Plan
Plan
# Lambda light chain MM with BRIANNA, symptomatic anemia, thrombocytopenia
- lambda markedly elevated at 4,138.74 with involved/uninvolved ratio of 192.58. 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 UPEP pending. reviewed with pt that FLC ratio > 100 meets criteria for multiple myeloma alone however also in
setting of new renal injury, worsening cytopenias without other etiologies. Discussed that MM is incurable however we have several treatments that are good at controlling disease and tolerable even in older population. She has good PS and carries
out most ADLs independently.
- check skeletal survey.
- BMbx to document extent of marrow involvement, molecular testing. Will reach out to administration regarding proceeding in-pt however if stable for d/c in next 72 hours can arrange for it out-pt with IR.
- discussed with nephrology. Cr stable at 3.4 today. She is not oliguric, no urgent indications for HD. Therefore will hold off on multi-agent systemic therapy in-pt however will proceed with Dexamethasone 40 mg daily x 4 days in attempt to decrease
light chain burden in attempt to prevent further renal injury.
- check baseline uric acid and if > 8.0 start empirical allopurinol, renal dosing. if > 10.0 recommend rasburicase.
- monitor TLS labs daily with steroids.
- will arrange close outpt follow-up to initiate palliative therapy for MM.
- CBC daily. transfuse for hgb < 7.0 g/dl, plts < 20K.
- pt with fever spike last night, cough and infiltrate on CXR. agree with empirical abx for PNA as she is high risk for infection with MM, hypogammaglobulinemia. can assess indication for ppx IVIG outpt depending on Ig trends.
#H/o Stage III Colon Cancer s/p R Hemicolectomy
- Was offered adjuvant chemo at that time, however she ultimately decided against it given successful surgical resection w/ negative margins and potential consequences of chemo at her age.
- Repeat colonoscopy in 2023 showed normal appearing internal hemorrhoids with no new polyps or masses.
- last CT of the chest/abd/pelvis was done in 2022. Given that she was undertreated, at the time of diagnosis and her last imaging scan was >1 year ago, given new symptoms of unexplained anemia, ordered CT Chest/abd/pelvis with oral contrast and
serum CEA.
- CT showing stable renal lesion, likely benign complex cyst, with no evidence for metastatic disease to the chest, abdomen or pelvis.
Subjective/Objective
Chief Complaint
BRIANNA, anemia, thrombocytopenia
Subjective
pt sitting eating breakfast. she has no new complaints. Denies new back pain however having rib pain bilaterally with cough. No LE swelling, SOB.
Vital Signs:
Vital Signs
Temp Pulse Resp BP Pulse Ox
98.0 F 85 14 145/68 94
11/14/24 07:00 11/14/24 11:20 11/14/24 11:20 11/14/24 07:00 11/14/24 11:20
Lab Results:
Laboratory Data
WBC 6.0 10^3/uL (4.8-10.8) 11/13/24 20:46
Hgb 8.1 g/dL (12.0-16.0) L 11/13/24 20:46
Plt Count 75 10^3/uL (130-400) L D 11/13/24 20:46
eGFR 12.48 11/13/24 20:46
Physical Exam
HEENT: Moist Mucous Membranes; No Jaundice
Cardiology: Normal Sinus Rhythm
Pulmonary: Clear; No Wheezes
Extremities: No Edema
Neuro: Non Focal
Review of Systems
Review of Systems
Constitutional: Reports Fever and Fatigue
Respiratory: Reports Cough; Denies Dyspnea
Cardiovascular: Denies Chest Pain
Skin: Denies Rash
Neurological: Denies Headache or Numbness
Hem/Lymphatic: Denies Easy Bruising
Orders
Orders
Orders From Last 24 Hours
11/14/24 12:10
Skeletal Survey Complete CR [CR Skeletal Survey, Complete] Routine
11/14/24 12:11
Dexamethasone Sod Phosphate [Decadron] 40 mg 0.9% Sodium Chloride 50 ml [Nss] 50 ml IV ONCE
11/14/24 12:15
Uric Acid Stat
11/15/24 06:00
LDH IN AM
Phosphorus IN AM
Uric Acid IN AM
11/16/24 06:00
LDH IN AM
Phosphorus IN AM
Uric Acid IN AM
11/17/24 06:00
LDH IN AM
Phosphorus IN AM
Uric Acid IN AM
11/18/24 06:00
LDH IN AM
Phosphorus IN AM
Uric Acid IN AM
--- NOTE | 2024-11-14 12:18 | W.PN.UPDATE ---
Update Note
Progress Note Update
Spoke with hematology oncology about results of SPEP appears to be myeloma. Starting on steroids. No indication for renal biopsy
--- NOTE | 2024-11-14 12:24 | W.PN.HOSP.TC ---
Today's Communication/Plan
-
see note
wean off o2 as possible
f.u uric acid level
f.u hbg/cr
Assessment / Plan
Assessment / Plan
1. Multiple myeloma - new dx
Normocytic anemia
Thrombocytopenia
-Baseline hemoglobin of 11 and plt 93 in June 18
-Came with Hbg 6.5 and Plt 73K
-FOBT neg. EPO 10 (WNL)
-Ferritin 225, TSAT 20% - less likely DEANNA
-S/p 2 U PRBC.
-SPEP/UPEP resulted and strongly suggestive of MM.
-Hematology is planning to start patient on Decadron
-if Uric acid level greater than 8 will start allopurinol as well
2. 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
Nephrotic range proteinuria
-Baseline cr of 1.4 and GFR 36
-came in with cr down to 3.8 and GFR 11
-Urine alb 3+, protein/cr ratio of 4. 24hr urine collection ordered.
-Complement within normal limit. Vasculitis panel/KIMI/Anti-PLA2 normal
-Renal US showed medical renal disease.
-CT c/a/p did not show any concern of relapsed malignancy.
-Avoid nephrotoxic medication.
-Patient renal dysfunction is due to multiple myeloma at this point.
3. Benign Hypertension
- Stable
- c/w PIN DRAFTER OPERATOR Nifedipine 30 daily
4. Asthma
- Nebs PRN for wheezing or SOB.
5. Hypothyroidism
- maintain on home dose of levothyroxine
6. Complex renal cyst
-Will require MRI/CT with contrast, not feasible with current worsening renal function
-will need to f/u with urology in office.
7. Acute hypoxic resp insufficiency
Fever episode
-reason unclear
-CT chest showing minor GGO
-COVID/Flu neg
-Patient having new fever episode. Atypical pulmonary infection? Starting on empiric Rocephin/Doxy
-With new diagnosis of multiple myeloma patient is considered immunocompromised
h/o colon cancer s/p hemicolectomy
Varicose vein
History of positional vertigo
History of phlebitis
History of carpal tunnel release
History of right rotator cuff tear
History of ovarian cyst removal
Cataract surgery
Appendectomy
Tonsillectomy
DVT Px: SCD
Full code
Care plan discussed with cutter down
Total time spent : 53 mins
Anticipated Discharge: 24 - 48 hours
Subjective/Interval History
-
Date of Service: November 14, 2024
Patient resting comfortably in chair
Remains on oxygen 3 L per nasal cannula
Minimal cough
Patient was febrile last night
Denies any diarrhea/dysuria
Objective Data
-
Vital Signs:
Vital Signs
Temp Pulse Resp BP Pulse Ox
98.0 F 85 14 145/68 94
11/14/24 07:00 11/14/24 11:20 11/14/24 11:20 11/14/24 07:00 11/14/24 11:20
I&O
11/13/24 11/14/24 11/15/24
06:59 06:59 06:59
Intake Total 1560 / 1560 540 / 540
Output Total 1440 / 1440
Balance 1560 / 1560 -900 / -900
Review of Systems
-
Respiratory: Reports Cough and Trouble Breathing (mainly with exertion)
Cardiac: Reports No Symptoms
Abdomen/GI: Reports No Symptoms
Physical Exam
-
General: No Apparent Distress
HEENT: Oxygen (3 LNC)
Respiratory: Negative Wheezes or Rhonchi
Cardiac: Regular Rhythm and S1/S2; Negative Murmur
GI: Soft, Nontender and Nondistended
Neuro: Awake, Alert and No Motor Deficits
[2024-11-14 12:53] LABS: Uric Acid 6.2 mg/dl (2.5-6.2)
[2024-11-14] MEDS: DECADRON 60 MG IV (13:50)
[2024-11-14 15:00] VITALS: BP 144/73
[2024-11-14 23:15] VITALS: BP 107/59
[2024-11-15] MEDS: SYNTHROID 50 MCG PO (06:16)
[2024-11-15 07:50] VITALS: BP 129/60
[2024-11-15] MEDS: VENTOLIN NEBULES 2.5 MG INH ×4 (07:50→20:21)
[2024-11-15 08:17] LABS: LDH 187 U/L (120-246); Phosphorus 4.6 mg/dl (2.5-4.5); Uric Acid 6.7 mg/dl (2.5-6.2)
[2024-11-15] MEDS: MUCINEX 600 MG PO ×2 (09:22→21:03)
[2024-11-15] MEDS: SINGULAIR 10 MG PO (09:22)
[2024-11-15] MEDS: PROCARDIA XL (EXTENDED RELEASE) 30 MG PO (09:22)
[2024-11-15] MEDS: VIBRAMYCIN 100 MG PO ×2 (09:22→21:03)
[2024-11-15] MEDS: STERILE WATER FOR INJECTION 10 ML IV (09:22)
[2024-11-15] MEDS: ROCEPHIN 1000 MG IV (09:22)
[2024-11-15 10:13] LABS: Blood Urea Nitrogen 48 mg/dl (7-17); Calcium 9.1 mg/dl (8.4-10.2); Carbon Dioxide 19 mmol/L (22-30); Chloride 110 mmol/L (98-107); Estimated Creatinine Clearance 10 ml/min; Glucose 160 mg/dl (70-99); Potassium 4.8 mmol/L (3.5-5.1); Sodium 136 mmol/L (135-145); eGFR 13.42
[2024-11-15 11:56] LABS: Hematocrit 23.7 % (37.0-47.0); Hemoglobin 7.8 g/dL (12.0-16.0); Mean Corp Hgb Conc. 32.9 g/dL (33.0-37.0); Mean Corpuscular Hgb 29.8 pg (27.0-31.0); Mean Corpuscular Volume 90.5 fL (81.0-99.0); Mean Platelet Volume 12.1 fL (7.4-10.4); Platelet Count 79 10^3/uL (130-400); Red Blood Cell Count 2.62 10^6/uL (4.20-5.40); Red Cell Dist. Width 16.7 % (11.5-14.5); White Blood Cell Count 3.8 10^3/uL (4.8-10.8)
--- NOTE | 2024-11-15 12:39 | W.PN.ONC2 ---
Today's Communication / Plan
-
- Cr stable at 3.2
- continue dex 40 mg daily x 4
- BMP, phos, uric acid daily.
Impression
Impression
89 year old female
lambda light chain multiple myeloma
Symptomatic Anemia
Thrombocytopenia
BRIANNA
H/o Stage III Colon Cancer s/p R Hemicolectomy
New Heart Murmur?
Plan
Plan
# Lambda light chain MM with BRIANNA, symptomatic anemia, thrombocytopenia
- lambda markedly elevated at 4,138.74 with involved/uninvolved ratio of 192.58. 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 UPEP , urine FLC pending. reviewed with pt again and family today in detail diagnosis of light chain MM. FLC
ratio > 100 meets criteria for multiple myeloma alone however also in setting of new renal injury, worsening cytopenias without other etiologies. Discussed that MM is incurable however we have several treatments that are good at controlling disease
and tolerable even in older population. She has good PS and carries out most ADLs independently.
- skeletal survey with classic lytic lesions involving skull, no other obvious lesions.
- started Dexamethasone 40 mg daily x 4 on 11/14 in attempt to prevent worsening kidney injury.
- no evidence of spont TLS on initial labs. Repeat labs today with only slight rise in uric acid from 6.2 to 6.7, mild elevation in phos. no indication for rasburicase or allopurinol at this time.
- Cr stable today at 3.2 from 3.4. monitor BMP daily. nephro following.
- discuss role for BMbx to document extent of marrow involvement, molecular testing. if stable for d/c in next 48 hours can arrange for it out-pt with IR.
- monitor TLS labs daily with steroids.
- will arrange close outpt follow-up to initiate palliative therapy for MM.
- CBC daily. transfuse for hgb < 7.0 g/dl, plts < 20K.
- pt with fever spike 3/21, cough and infiltrate on CXR. agree with empirical abx for PNA as she is high risk for infection with MM, hypogammaglobulinemia. can assess indication for ppx IVIG outpt depending on Ig trends.
#H/o Stage III Colon Cancer s/p R Hemicolectomy
- Was offered adjuvant chemo at that time, however she ultimately decided against it given successful surgical resection w/ negative margins and potential consequences of chemo at her age.
- Repeat colonoscopy in 2023 showed normal appearing internal hemorrhoids with no new polyps or masses.
- CT showing stable renal lesion, likely benign complex cyst, with no evidence for metastatic disease to the chest, abdomen or pelvis.
Subjective/Objective
Chief Complaint
anemia, thrombocytopenia, BRIANNA due to lambda light chain myeloma
Subjective
pt with no new complaints today. she continues to have good urine output. She has mild sleep disturbance last night related to high dose steroids but able to get rest. Denies fevers however episode of chills. Family at bedside.
Vital Signs:
Vital Signs
Temp Pulse Resp BP Pulse Ox
98.1 F 80 15 129/60 96
11/15/24 07:50 11/15/24 11:43 11/15/24 11:43 11/15/24 07:50 11/15/24 09:00
Lab Results:
Laboratory Data
WBC 3.8 10^3/uL (4.8-10.8) L 11/15/24 06:42
Hgb 7.8 g/dL (12.0-16.0) L 11/15/24 06:42
Plt Count 79 10^3/uL (130-400) L 11/15/24 06:42
eGFR Cancelled 11/15/24 09:42
Physical Exam
Cardiology: Normal Sinus Rhythm
Pulmonary: Clear
GI: Soft; No Distended
Extremities: No Edema
Neuro: Non Focal
Review of Systems
Review of Systems
Constitutional: Denies Fever
Respiratory: Reports Cough
Cardiovascular: Denies Chest Pain
Skin: Denies Rash
Neurological: Denies Headache or Numbness
Hem/Lymphatic: Reports Night Sweats; Denies Easy Bruising
Orders
Orders
Orders From Last 24 Hours
11/14/24 12:10
Skeletal Survey Complete CR [CR Skeletal Survey, Complete] Routine
11/14/24 12:11
Dexamethasone Sod Phosphate [Decadron] 40 mg 0.9% Sodium Chloride 50 ml [Nss] 50 ml IV ONCE
11/14/24 12:26
Uric Acid Stat
11/15/24 06:42
Basic Metabolic Panel Routine
LDH IN AM
Phosphorus IN AM
Uric Acid IN AM
11/16/24 06:00
BMP [Basic Metabolic Panel] IN AM
LDH IN AM
Phosphorus IN AM
Uric Acid IN AM
11/17/24 06:00
BMP [Basic Metabolic Panel] IN AM
LDH IN AM
Phosphorus IN AM
Uric Acid IN AM
11/18/24 06:00
BMP [Basic Metabolic Panel] IN AM
LDH IN AM
Phosphorus IN AM
Uric Acid IN AM
--- NOTE | 2024-11-15 14:02 | W.PN.HOSP.TC ---
Today's Communication/Plan
-
maintain on high dose steroids
f/u renal function/uric acid level
continue empiric abx
Assessment / Plan
Assessment / Plan
1. Multiple myeloma - new dx
Normocytic anemia
Thrombocytopenia
-Baseline hemoglobin of 11 and plt 93 in June 18
-Came with Hbg 6.5 and Plt 73K
-FOBT neg. EPO 10 (WNL)
-Ferritin 225, TSAT 20% - less likely DEANNA
-S/p 2 U PRBC.
-SPEP/UPEP resulted and increased lambda Free chain with FLC ratio ~ 190
-patient to be maintained on dexamethasone 40mg/d 2/4 doses.
-check daily uric acid , allopurinol elevated above 8.
2. 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
Nephrotic range proteinuria
-Baseline cr of 1.4 and GFR 36
-came in with cr down to 3.8 and GFR 11
-Urine alb 3+, protein/cr ratio of 4. 24hr urine collection ordered.
-Complement within normal limit. Vasculitis panel/KIMI/Anti-PLA2 normal
-Renal US showed medical renal disease.
-CT c/a/p did not show any concern of relapsed malignancy.
-Patient renal dysfunction is due to multiple myeloma at this point.
3. Benign Hypertension
- Stable
- c/w METAL HANDLER Nifedipine 30 daily
4. Asthma
- Nebs PRN for wheezing or SOB.
5. Hypothyroidism
- maintain on home dose of levothyroxine
6. Complex renal cyst
-Will require MRI/CT with contrast, not feasible with current worsening renal function
-will need to f/u with urology in office.
7. Acute hypoxic resp insufficiency
Fever episode
GGO on CT - Presumed atypical Pneumonia vs other
-reason unclear
-CT chest showing minor GGO
-COVID/Flu neg
-Patient having new fever episode. Atypical pulmonary infection? Starting on empiric Rocephin/Doxy
-With new diagnosis of multiple myeloma patient is considered immunocompromised at this point
h/o colon cancer s/p hemicolectomy
Varicose vein
History of positional vertigo
History of phlebitis
History of carpal tunnel release
History of right rotator cuff tear
History of ovarian cyst removal
Cataract surgery
Appendectomy
Tonsillectomy
DVT Px: SCD
Full code
Care plan discussed with maintenance and engineering manager
Anticipated Discharge: 24 - 48 hours
Subjective/Interval History
-
Date of Service: November 15, 2024
Afebrile overnight
Off of oxygen
No other reported issues
Objective Data
-
Labs:
Laboratory Results
11/15/24 11/15/24
06:42 09:42
WBC 3.8 L
Hgb 7.8 L
Hct 23.7 L
Plt Count 79 L
Sodium 136 Cancelled
Potassium 4.8 Cancelled
Chloride 110 H Cancelled
Carbon Dioxide 19 L Cancelled
BUN 48 H Cancelled
Creatinine 3.2 H Cancelled
Glucose 160 H Cancelled
Calcium 9.1 Cancelled
Vital Signs:
Vital Signs
Temp Pulse Resp BP Pulse Ox
98.1 F 80 15 129/60 96
11/15/24 07:50 11/15/24 11:43 11/15/24 11:43 11/15/24 07:50 11/15/24 09:00
I&O
11/14/24 11/15/24 11/16/24
06:59 06:59 06:59
Intake Total 540 / 540 1140 / 1140
Output Total 1440 / 1440
Balance -900 / -900 1140 / 1140
Review of Systems
-
Respiratory: Reports No Symptoms
Cardiac: Reports No Symptoms
Abdomen/GI: Reports No Symptoms
Physical Exam
-
General: No Apparent Distress
HEENT: Oxygen (3 LNC)
Respiratory: Negative Wheezes or Rhonchi
Cardiac: Regular Rhythm and S1/S2; Negative Murmur
GI: Soft, Nontender and Nondistended
Neuro: Awake, Alert and No Motor Deficits
[2024-11-15] MEDS: DECADRON 60 MG IV (14:57)
[2024-11-15 15:50] VITALS: BP 119/56
--- NOTE | 2024-11-15 16:03 | W.PN.NEPH.PH ---
Today's Communication / Plan
-
Steroids
Assessment/Plan
-
Assessment
BRIANNA
Acute anemia
Thrombocytopenia= chronic
Hypertension
History of colon cancer right hemicolectomy
Plan
Creatinine as of May 2024 was 1.4 and August 2023 0.8
Workup of proteinuria ordered= protein creatinine ratio 4 g/24-hour protein just 2 g
Follow BMP
Renal ultrasound shows chronic kidney disease and increased echogenicity and indication of a complex cyst along the right kidney possible neoplasm cannot be excluded per radiology read.= Consider urological evaluation though unlikely any further
treatment at her age.
Confirmed multiple myeloma.�Discussed with hematology on steroids.
Creatinine is somewhat better at 3.2.
No indication for renal biopsy/no acute need for dialysis
We will follow closely outpatient
-
-
Date of Service: November 15, 2024
CC / HPI / ROS
-
Chief Complaint:
BRIANNA
History of Present Illness:
BRIANNA/creatinine slightly better at 3.5
Proteinuria nonnephrotic range with 24-hour
BP stable
Hemoglobin slightly better at 7.9
Review of Systems:
No chest pain or shortness of breath
Labs
-
Labs:
WBC 3.8 10^3/uL (4.8-10.8) L 11/15/24 06:42
RBC 2.62 10^6/uL (4.20-5.40) L 11/15/24 06:42
Hgb 7.8 g/dL (12.0-16.0) L 11/15/24 06:42
Hct 23.7 % (37.0-47.0) L 11/15/24 06:42
Plt Count 79 10^3/uL (130-400) L 11/15/24 06:42
Sodium Cancelled 11/15/24 09:42
Potassium Cancelled 11/15/24 09:42
Chloride Cancelled 11/15/24 09:42
Carbon Dioxide Cancelled 11/15/24 09:42
BUN Cancelled 11/15/24 09:42
Creatinine Cancelled 11/15/24 09:42
eGFR Cancelled 11/15/24 09:42
Glucose Cancelled 11/15/24 09:42
Calcium Cancelled 11/15/24 09:42
Phosphorus 4.6 mg/dl (2.5-4.5) H 11/15/24 06:42
Albumin 4.0 g/dl (3.5-5.0) 11/10/24 15:38
Physical Exam
-
Vital Signs:
Vital Signs
Temp Pulse Resp BP Pulse Ox
98.1 F 90 15 129/60 95
11/15/24 07:50 11/15/24 14:58 11/15/24 14:58 11/15/24 07:50 11/15/24 14:58
Cardiovascular:: Regular rate and rhythm
Respiratory:: Bilateral: CTA
Lung Excursion:: Normal
Abdomen:: Nontender and Soft
Bowel Sounds:: Normal
Extremity Edema:: None: Bilateral:
[2024-11-15 23:26] VITALS: BP 132/65
[2024-11-16] MEDS: VENTOLIN NEBULES 2.5 MG INH ×5 (01:21→19:59)
[2024-11-16] MEDS: SYNTHROID 50 MCG PO (05:19)
[2024-11-16 07:53] VITALS: BP 168/79
[2024-11-16 08:45] LABS: Hematocrit 27.9 % (37.0-47.0); Hemoglobin 8.9 g/dL (12.0-16.0); Mean Corp Hgb Conc. 31.9 g/dL (33.0-37.0); Mean Corpuscular Hgb 29.1 pg (27.0-31.0); Mean Corpuscular Volume 91.2 fL (81.0-99.0); Mean Platelet Volume 12.2 fL (7.4-10.4); Platelet Count 115 10^3/uL (130-400); Red Blood Cell Count 3.06 10^6/uL (4.20-5.40); Red Cell Dist. Width 16.9 % (11.5-14.5)
[2024-11-16] MEDS: VIBRAMYCIN 100 MG PO ×2 (08:48→19:34)
[2024-11-16] MEDS: PROCARDIA XL (EXTENDED RELEASE) 30 MG PO (08:48)
[2024-11-16] MEDS: SINGULAIR 10 MG PO (08:48)
[2024-11-16] MEDS: MUCINEX 600 MG PO ×2 (08:48→19:34)
[2024-11-16] MEDS: STERILE WATER FOR INJECTION 10 ML IV (09:03)
[2024-11-16] MEDS: ROCEPHIN 1000 MG IV (09:03)
--- NOTE | 2024-11-16 09:09 | W.PN.ONC2 ---
Today's Communication / Plan
-
Echo ordered, follow up OP with oncology for BM Bx and nephrology for follow up BRIANNA/CKD
Impression
Impression
89 yo Female
Lambda Light Chain Multiple Myeloma
Symptomatic Anemia
Thrombocytopenia
BRIANNA
H/o Stage III Colon Cancer s/p R Hemicolectomy
New Heart Murmur?
Plan
Plan
#Lambda Light Chain MM
#BRIANNA
#Symptomatic Anemia
#Thrombocytopenia
- hgb on admission 6.5, Land Inspector was 1.4 in 05/2024 and now 3.8 on admission. eGFR 10-11 from 36 in 05/2024, Plts from 2022 in the 90s-150s, now 70s-60s. No obvious signs of bleeding, stool heme neg.
- Lambda LC elevated at 4,138, FLC ratio >100, skeletal survey demonstrates lytic lesions of the calvarium w/ no other lesions.
- Phos 4.9, UA 7.3, LDH wnl. Does not meet TLS criteria at this time. C/t monitor Tumor Lysis labs (BMP, phos, uric acid, LDH)
- C/w Decadron 40mg Q24 (day 3 of 4)
- Stable hgb. Slight increase in Plts to 115 post steroids. C/w CBC monitoring. Transfuse if hgb <7 or plts <20,000
- Land Inspector 3.4 today, stable. She is still making urine, no urgent need for dialysis. C/t trend BMP as above. Appreciate nephro recs. Will need nephro follow up as OP
- Will schedule for OP BMbx upon discharge for further workup/management within the next week. Plan to start Velcaide as OP.
#Cough/Fever - fever of 102.2F, w/ cough and CXR findings of interstitial edema. Increased risk of infection due to hypogammaglobulinemia/MM. Agree to cont. empiric Abx
#H/o Stage III Colon Cancer s/p R Hemicolectomy
- Was offered adjuvant chemo at that time, however she ultimately decided against it given successful surgical resection w/ negative margins and potential consequences of chemo at her age.
- Repeat colonoscopy in 2023 showed normal appearing internal hemorrhoids with no new polyps or masses.
- CT showing stable renal lesion, likely benign complex cyst, with no evidence for metastatic disease to the chest, abdomen or pelvis. CEA wnl
#New Heart Murmur?
- Systolic murmur on exam, patient states this was found in the OP office
- Possible consequence of her severe anemia vs. LC deposition cardiomyopathy. Ordered ECHO
Subjective/Objective
Chief Complaint
Anemia
Subjective
Feeling well this morning. No Acute complaints. Is getting her strength back and has been walking more without significant shortness of breath. No new fevers, chills.
Vital Signs:
Vital Signs
Temp Pulse Resp BP Pulse Ox
98.7 F 88 16 168/79 98
11/16/24 07:53 11/16/24 08:06 11/16/24 08:06 11/16/24 07:53 11/16/24 08:06
Lab Results:
Laboratory Data
WBC 9.0 10^3/uL (4.8-10.8) 11/16/24 08:00
Hgb 8.9 g/dL (12.0-16.0) L 11/16/24 08:00
Plt Count 115 10^3/uL (130-400) L D 11/16/24 08:00
eGFR Cancelled 11/15/24 09:42
Physical Exam
HEENT: Moist Mucous Membranes
Cardiology: Normal Sinus Rhythm, S1, S2 and Murmur; No Rub/gallop
Pulmonary: Clear; No Wheezes, Rales or Rhonchi
GI: Soft and Normal Bowel Sounds
Extremities: No C/C/E
Review of Systems
Review of Systems
Constitutional: Denies Fever or Fatigue
Head: Denies Sore Throat
Respiratory: Denies Dyspnea
Cardiovascular: Denies Chest Pain or Palpitations
Gastrointestinal: Denies Nausea/Vomiting
Genitourinary: Denies Hematuria
Skin: Denies Rash
Neurological: Denies Headache
Hem/Lymphatic: Denies Night Sweats
Orders
Orders
Orders From Last 24 Hours
11/16/24 08:36
Echo 2D MMode Color/Doppler Routine
[2024-11-16 09:23] LABS: Blood Urea Nitrogen 57 mg/dl (7-17); Calcium 9.5 mg/dl (8.4-10.2); Chloride 110 mmol/L (98-107); Estimated Creatinine Clearance 9 ml/min; LDH 231 U/L (120-246); Phosphorus 4.9 mg/dl (2.5-4.5); Potassium 4.6 mmol/L (3.5-5.1); Sodium 139 mmol/L (135-145); Uric Acid 7.3 mg/dl (2.5-6.2); eGFR 12.48
[2024-11-16 09:26] LABS: Carbon Dioxide 17 mmol/L (22-30); Glucose 125 mg/dl (70-99)
--- NOTE | 2024-11-16 12:02 | CM ---
CM reviewed chart, patient seen in chair resting, reports no needs at this time. Patient no longer on O2. CM will continue to follow/offer VN upon discharge.
Plan; home with spouse, declining VN, will continue to offer
--- NOTE | 2024-11-16 12:47 | W.PN.HOSP.TC ---
Today's Communication/Plan
-
monitor vitals
see plan
Monitor renal function
Nephrology to see today
IV steroids today
Hematology to see
Discharge planning
cw abx
Assessment / Plan
Assessment / Plan
Multiple myeloma - new dx
Normocytic anemia
Thrombocytopenia
-Baseline hemoglobin of 11 and plt 93 in June 18
-Came with Hbg 6.5 and Plt 73K
-FOBT neg. EPO 10 (WNL)
-Ferritin 225, TSAT 20% - less likely DEANNA
-S/p 2 U PRBC.
-SPEP/UPEP resulted and increased lambda Free chain with FLC ratio ~ 190
-patient to be maintained on dexamethasone 40mg/d 4/4 doses.
-check daily uric acid , allopurinol elevated above 8.
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
Nephrotic range proteinuria
-Baseline cr of 1.4 and GFR 36
-came in with cr down to 3.8 and GFR 11; now cr 3.4
-Urine alb 3+, protein/cr ratio of 4. 24hr urine collection ordered.
-Complement within normal limit. Vasculitis panel/KIMI/Anti-PLA2 normal
-Renal US showed medical renal disease.
-CT c/a/p did not show any concern of relapsed malignancy.
-Patient renal dysfunction is due to multiple myeloma at this point. renal will f/u outpatient
Benign Hypertension
- Stable
- c/w DRYWALL FINISHING FOREMAN Nifedipine 30 daily
Asthma
- Nebs PRN for wheezing or SOB.
Hypothyroidism
- maintain on home dose of levothyroxine
Complex renal cyst
-Will require MRI/CT with contrast, not feasible with current worsening renal function
-will need to f/u with urology in office.
Acute hypoxic resp insufficiency
now on room air
Fever episode
GGO on CT - Presumed atypical Pneumonia vs other
-reason unclear
-CT chest showing minor GGO
-COVID/Flu neg
-Patient having new fever episode. Atypical pulmonary infection? Starting on empiric Rocephin/Doxy
-With new diagnosis of multiple myeloma patient is considered immunocompromised at this point
h/o colon cancer s/p hemicolectomy
Varicose vein
History of positional vertigo
History of phlebitis
History of carpal tunnel release
History of right rotator cuff tear
History of ovarian cyst removal
Cataract surgery
Appendectomy
Tonsillectomy
DVT Px: SCD
Full code
General: No Apparent Distress
HEENT: anicteric,pink conjunctivae
Respiratory: Negative Wheezes or Rhonchi
Cardiac: Regular Rhythm and S1/S2; Negative Murmur
GI: Soft, Nontender and Nondistended
Neuro: Awake, Alert and No Motor Deficits
Anticipated Discharge: Within 24 hours
Subjective/Interval History
-
Date of Service: November 16, 2024
denies pain
Objective Data
-
Labs:
Laboratory Results
11/16/24
08:00
WBC 9.0
Hgb 8.9 L
Hct 27.9 L
Plt Count 115 L D
Sodium 139
Potassium 4.6
Chloride 110 H
Carbon Dioxide 17 L
BUN 57 H
Creatinine 3.4 H
Glucose 125 H
Calcium 9.5
Vital Signs:
Vital Signs
Temp Pulse Resp BP Pulse Ox
98.7 F 82 16 168/79 96
11/16/24 07:53 11/16/24 11:28 11/16/24 11:28 11/16/24 07:53 11/16/24 11:28
I&O
11/15/24 11/16/24 11/17/24
06:59 06:59 06:59
Intake Total 1140 / 1140 480 / 480
Balance 1140 / 1140 480 / 480
[2024-11-16] MEDS: DECADRON 60 MG IV (13:14)
[2024-11-16 15:16] VITALS: BP 145/35
--- NOTE | 2024-11-16 15:56 | W.PN.NEPH.PH ---
Today's Communication / Plan
-
see plan
Assessment/Plan
-
Assessment
BRIANNA
Acute anemia
Thrombocytopenia= chronic
Hypertension
History of colon cancer right hemicolectomy
Plan
Creatinine as of May 2024 was 1.4 and August 2023 0.8
protein creatinine ratio 4 g/24-hour protein just 2 g
cr up slightly at 3.4, subjectively non oliguric
mostly this is myeloma related , UA -bacteruria sample, serologies neg
Renal ultrasound shows chronic kidney disease and increased echogenicity and indication of a complex cyst along the right kidney possible neoplasm cannot be excluded per radiology read.= Consider urological evaluation though unlikely any further
treatment at her age.
No indication for renal biopsy/no acute need for dialysis
will start sodium bicarb for met acidosis
however should her renal function worsens she would not refuse dialysis
cont steroid course per heme and likely start chemo once d/c
will need nephro f/u with close check of labs
d/w pt and in detail
d/.w heme
-
-
Date of Service: November 16, 2024
CC / HPI / ROS
-
Chief Complaint:
BRIANNA
History of Present Illness:
BRIANNA/creatinine slightly up at 3.4, bciarb low 17
Proteinuria nonnephrotic range with 24-hour
BP stable
Hemoglobin slightly better at 8.9
Review of Systems:
No chest pain or shortness of breath
no dysuria
Labs
-
Labs:
WBC 9.0 10^3/uL (4.8-10.8) 11/16/24 08:00
RBC 3.06 10^6/uL (4.20-5.40) L 11/16/24 08:00
Hgb 8.9 g/dL (12.0-16.0) L 11/16/24 08:00
Hct 27.9 % (37.0-47.0) L 11/16/24 08:00
Plt Count 115 10^3/uL (130-400) L D 11/16/24 08:00
Sodium 139 mmol/L (135-145) 11/16/24 08:00
Potassium 4.6 mmol/L (3.5-5.1) 11/16/24 08:00
Chloride 110 mmol/L (98-107) H 11/16/24 08:00
Carbon Dioxide 17 mmol/L (22-30) L 11/16/24 08:00
BUN 57 mg/dl (7-17) H 11/16/24 08:00
Creatinine 3.4 mg/dL (0.6-1.0) H 11/16/24 08:00
eGFR 12.48 11/16/24 08:00
Glucose 125 mg/dl (70-99) H 11/16/24 08:00
Calcium 9.5 mg/dl (8.4-10.2) 11/16/24 08:00
Phosphorus 4.9 mg/dl (2.5-4.5) H 11/16/24 08:00
Albumin 4.0 g/dl (3.5-5.0) 11/10/24 15:38
Physical Exam
-
Vital Signs:
Vital Signs
Temp Pulse Resp BP Pulse Ox
98.2 F 90 16 145/35 95
11/16/24 15:16 11/16/24 15:47 11/16/24 15:47 11/16/24 15:16 11/16/24 15:47
Cardiovascular:: Regular rate and rhythm
Respiratory:: Bilateral: CTA
Lung Excursion:: Normal
Abdomen:: Nontender and Soft
Extremity Edema:: None: Bilateral:
Babb Catheter: No
[2024-11-16] MEDS: SODIUM BICARBONATE 650 MG PO (19:34)
[2024-11-16 22:00] VITALS: BP 141/71
[2024-11-16 22:25] LABS: 24 Hour Urine Total Volume 1600 mL; Total Protein, Urine 5300 mg/d (<=150); Ur Free Lambda Excretion/day 5148.06 mg/d; Urine Collection Length 24 hr; Urine Free Kappa Excretion/Day 78.42 mg/d; Urine Free Kappa Light Chains 49.01 mg/L (0.00-32.90); Urine Free Lambda Light Chains 3217.54 mg/L (0.00-3.79)
[2024-11-17] MEDS: VENTOLIN NEBULES 2.5 MG INH ×3 (02:37→11:15)
[2024-11-17] MEDS: SYNTHROID 50 MCG PO (05:14)
[2024-11-17 07:28] VITALS: BP 124/90
[2024-11-17 07:40] LABS: Hematocrit 23.4 % (37.0-47.0); Hemoglobin 7.6 g/dL (12.0-16.0); Mean Corp Hgb Conc. 32.5 g/dL (33.0-37.0); Mean Corpuscular Hgb 29.7 pg (27.0-31.0); Mean Corpuscular Volume 91.4 fL (81.0-99.0); Platelet Count 102 10^3/uL (130-400); Red Blood Cell Count 2.56 10^6/uL (4.20-5.40); Red Cell Dist. Width 16.7 % (11.5-14.5); White Blood Cell Count 8.7 10^3/uL (4.8-10.8)
[2024-11-17 08:02] LABS: Blood Urea Nitrogen 64 mg/dl (7-17); Calcium 9.3 mg/dl (8.4-10.2); Carbon Dioxide 20 mmol/L (22-30); Chloride 113 mmol/L (98-107); Estimated Creatinine Clearance 10 ml/min; Glucose 107 mg/dl (70-99); LDH 183 U/L (120-246); Phosphorus 4.3 mg/dl (2.5-4.5); Potassium 4.5 mmol/L (3.5-5.1); Sodium 141 mmol/L (135-145); Uric Acid 7.1 mg/dl (2.5-6.2); eGFR 13.42
[2024-11-17] MEDS: SINGULAIR 10 MG PO (09:08)
[2024-11-17] MEDS: MUCINEX 600 MG PO (09:08)
[2024-11-17] MEDS: VIBRAMYCIN 100 MG PO (09:09)
[2024-11-17] MEDS: PROCARDIA XL (EXTENDED RELEASE) 30 MG PO (09:09)
[2024-11-17] MEDS: SODIUM BICARBONATE 650 MG PO (09:09)
[2024-11-17] MEDS: STERILE WATER FOR INJECTION 10 ML IV (09:10)
[2024-11-17] MEDS: ROCEPHIN 1000 MG IV (09:10)
[2024-11-17 11:34] LABS: Hematocrit 25.4 % (37.0-47.0); Hemoglobin 8.1 g/dL (12.0-16.0)
--- NOTE | 2024-11-17 12:20 | W.PN.HOSP.TC ---
Addendum entered and electronically signed by Ricardo Mohamud MD 11/17/24 13:03:
Discussed with infectious disease and nephrology, okay to discharge after IV steroids. Will need outpatient bone marrow biopsy. Patient to be started on Velcade outpatient this week.
Time of discharge 38 minutes
Original Note:
Today's Communication/Plan
-
monitor vitals
see plan
dc if ok with hematology and nephrology
last day steroids today
Assessment / Plan
Assessment / Plan
Multiple myeloma - new dx
Normocytic anemia
Thrombocytopenia
-Baseline hemoglobin of 11 and plt 93 in June 18
-Came with Hbg 6.5 and Plt 73K
-FOBT neg. EPO 10 (WNL)
-Ferritin 225, TSAT 20% - less likely DEANNA
-S/p 2 U PRBC.
-SPEP/UPEP resulted and increased lambda Free chain with FLC ratio ~ 190
-patient to be maintained on dexamethasone 40mg/d 4/4 doses.
-check daily uric acid , allopurinol elevated above 8.
Hemoglobin 7.6 this morning, repeat 8.1. No signs of bleeding
per heme OP BMbx upon discharge for further workup/management within the next week. Plan to start Velcaide as OP.
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
Nephrotic range proteinuria
-Baseline cr of 1.4 and GFR 36
-came in with cr down to 3.8 and GFR 11; now cr 3.2. Discussed with infectious disease and they are okay with patient being discharged with close follow-up outpatient. Awaiting answer from hematology, if okay from their standpoint as well then
will discharge patient home today
-Urine alb 3+, protein/cr ratio of 4.
-Complement within normal limit. Vasculitis panel/KIMI/Anti-PLA2 normal
-Renal US showed medical renal disease.
-CT c/a/p did not show any concern of relapsed malignancy.
-Patient renal dysfunction is due to multiple myeloma at this point. renal will f/u outpatient
Benign Hypertension
- Stable
- c/w [employer] Nifedipine 30 daily
Asthma
- Nebs PRN for wheezing or SOB.
Hypothyroidism
- maintain on home dose of levothyroxine
Complex renal cyst
-Will require MRI/CT with contrast, not feasible with current worsening renal function
-will need to f/u with urology in office.
Acute hypoxic resp insufficiency
now on room air
Fever episode
GGO on CT - Presumed atypical Pneumonia
-reason unclear
-CT chest showing minor GGO
-COVID/Flu neg
-Patient having new fever episode. Atypical pulmonary infection? Starting on empiric Rocephin/Doxy. switch to cefdinir and doxy to finish course
-With new diagnosis of multiple myeloma patient is considered immunocompromised at this point
h/o colon cancer s/p hemicolectomy
Varicose vein
History of positional vertigo
History of phlebitis
History of carpal tunnel release
History of right rotator cuff tear
History of ovarian cyst removal
Cataract surgery
Appendectomy
Tonsillectomy
DVT Px: SCD
Full code
General: No Apparent Distress
HEENT: anicteric,pink conjunctivae
Respiratory: Negative Wheezes or Rhonchi
Cardiac: Regular Rhythm and S1/S2; Negative Murmur
GI: Soft, Nontender and Nondistended
Neuro: Awake, Alert and No Motor Deficits
Anticipated Discharge: Today
Subjective/Interval History
-
Date of Service: November 17, 2024
denies pain
Objective Data
-
Labs:
Laboratory Results
11/17/24 11/17/24
07:13 11:23
WBC 8.7
Hgb 7.6 L 8.1 L
Hct 23.4 L 25.4 L
Plt Count 102 L
Sodium 141
Potassium 4.5
Chloride 113 H
Carbon Dioxide 20 L
BUN 64 H
Creatinine 3.2 H
Glucose 107 H
Calcium 9.3
Vital Signs:
Vital Signs
Temp Pulse Resp BP Pulse Ox
98.3 F 76 16 124/90 96
11/17/24 07:28 11/17/24 11:16 11/17/24 11:16 11/17/24 09:09 11/17/24 08:30
I&O
11/16/24 11/17/24 11/18/24
06:59 06:59 06:59
Intake Total 480 / 480 900 / 900
Balance 480 / 480 900 / 900
--- NOTE | 2024-11-17 12:33 | W.PN.ONC2 ---
Today's Communication / Plan
-
discussed with pt that she will need close follow up to start velcade outpatient this week. She is agreeable.
discussed need for OP bone marrow biospy
Agree with discharge for continued outpatient management
Impression
Impression
89 yo Female
Lambda Light Chain Multiple Myeloma
Symptomatic Anemia
Thrombocytopenia
BRIANNA
H/o Stage III Colon Cancer s/p R Hemicolectomy
Plan
Plan
#Lambda Light Chain MM
#BRIANNA
#Symptomatic Anemia
#Thrombocytopenia
- hgb on admission 6.5, Giving Officer was 1.4 in 05/2024 and now 3.8 on admission. eGFR 10-11 from 36 in 05/2024, Plts from 2022 in the 90s-150s, now 70s-60s. No obvious signs of bleeding, stool heme neg.
- Lambda LC elevated at 4,138, FLC ratio >100, skeletal survey demonstrates lytic lesions of the calvarium w/ no other lesions.
- Phos 4.3, UA 7.1, LDH wnl. Does not meet TLS criteria at this time. C/t monitor Tumor Lysis labs (BMP, phos, uric acid, LDH)
- C/w Decadron 40mg Q24 x 4 days then complete. Can transition to PO to facilitate discharge
- Transfuse if hgb <7 or plts <20,000
- Giving Officer 3.2 today, stable. She is still making urine, no urgent need for dialysis. C/t trend BMP as above. Appreciate nephro recs. Will need nephro follow up as OP
- Will schedule for OP BMbx upon discharge for further workup/management within the next week. Plan to start Velcaide as OP.
#Cough/Fever - fever of 102.2F, w/ cough and CXR findings of interstitial edema. Increased risk of infection due to hypogammaglobulinemia/MM. Agree to cont. empiric Abx
#H/o Stage III Colon Cancer s/p R Hemicolectomy
- Was offered adjuvant chemo at that time, however she ultimately decided against it given successful surgical resection w/ negative margins and potential consequences of chemo at her age.
- Repeat colonoscopy in 2023 showed normal appearing internal hemorrhoids with no new polyps or masses.
- CT showing stable renal lesion, likely benign complex cyst, with no evidence for metastatic disease to the chest, abdomen or pelvis. CEA wnl
Subjective/Objective
Subjective
no new complaints
Vital Signs:
Vital Signs
Temp Pulse Resp BP Pulse Ox
98.3 F 76 16 124/90 96
11/17/24 07:28 11/17/24 11:16 11/17/24 11:16 11/17/24 09:09 11/17/24 08:30
Lab Results:
Laboratory Data
WBC 8.7 10^3/uL (4.8-10.8) 11/17/24 07:13
Hgb 8.1 g/dL (12.0-16.0) L 11/17/24 11:23
Plt Count 102 10^3/uL (130-400) L 11/17/24 07:13
eGFR 13.42 11/17/24 07:13
Physical Exam
HEENT: Moist Mucous Membranes; No Jaundice
Cardiology: Normal Sinus Rhythm
Pulmonary: Clear
GI: Soft
Extremities: Pulses Present; No Edema
Neuro: Non Focal
[2024-11-17] MEDS: DECADRON 60 MG IV (13:22)
--- NOTE | 2024-11-17 13:38 | W.DCSUMMARY ---
Discharge Summary
Discharge Data
Date of Admission: 11/10/24
Date of Discharge: 11/17/24
-
Pending Results: Yes
Hospital Course
89-year-old female with past medical history of robotic right colectomy for previous colon cancer, asthma, CKD, ICH, vertigo, thrombocytopenia came to the hospital initially with anemia along with BRIANNA on CKD. Patient was seen by nephrology and
hematology throughout hospitalization. Upon further studies it was determined that patient has multiple myeloma. Patient required blood transfusion on this hospitalization. Due to worsening creatinine patient was put on IV steroids. Hematology
recommended patient to follow-up with them closely outpatient and to be started on Velcade later this week. For her creatinine she was instructed to repeat BMP in 2 days. While patient was in the hospital she also developed fever. It appeared
that was likely secondary to presumed atypical pneumonia. Patient was then started on IV antibiotics were later transitioned to p.o. antibiotics to complete the course on discharge. She also had complex renal cyst however did not get MRI or CT
scan with contrast due to worsening renal function. Patient instructed to follow-up with urology outpatient. After patient was done with IV steroids, hematology and nephrology were okay with patient being discharged with close follow-up
outpatient. On discharge since patient symptoms were improving, she was then discharged home with instructions to follow-up with all her physicians outpatient.
Discharge Plan
-
Patient Disposition: Home (Routine Discharge)
Discharge Diagnosis/Procedures: Lambda Light Chain Multiple Myeloma
Symptomatic Anemia
Thrombocytopenia
BRIANNA
Acute hypoxic respiratory insufficiency likely secondary to atypical pneumonia
Suspected complex renal cyst
Diet: As tolerated
Activity: As tolerated
Driving Restrictions: As prior to admission
Bathing Restrictions: None
Blood Work: BMP in 2 days with PCP and speak to nephrology
Activity Restrictions/Additional Instructions:
Follow-up with hematology this week to be started on Velcade
Need outpatient bone marrow biopsy, follow-up with hematology
Referrals:
Orlando Toledo MD [Active] -
Yuliet Ann MD [Active] - in less than 1 week
Krystian Campos MD [Family Provider] - in less than 1 week
Jami Last MD [Active] - in less than 1 week
Prescriptions:
New
doxycycline hyclate 100 mg Capsule
100 mg PO Q12 Qty: 6 0RF
cefdinir 300 mg capsule
300 mg PO BID Qty: 6 0RF
sodium bicarbonate 650 mg Tablet
650 mg PO BID Qty: 20 0RF
Continued
meclizine 12.5 mg Tablet
12.5 mg PO PRN PRN (Reason: positional vertigo)
Mucinex DM 30-600 mg Tablet Extended Release 12 Hr
1 tab PO Q12H
levothyroxine 50 mcg Capsule
50 mcg PO DAILY
albuterol sulfate 2.5 MG/3 ML solution for nebulization
2.5 mg inhalation TID
nifedipine 30 mg Tablet Extended Release
30 mg PO DAILY Qty: 30 0RF
Singulair 10 mg
10 mg PO DAILY
budesonide 0.5 mg/2 mL Suspension For Nebulization
0.5 mg inhalation BID
Discharge Orders:
Discharge Patient (As Directed); Ordered 11/17/24
Ordered By: Ricardo Mohamud
Discharge Date and Time
Discharge Date/Time: 11/17/24 15:10
Print Language: SAMI
--- NOTE | 2024-11-17 14:09 | W.PN.NEPH.PH ---
Today's Communication / Plan
-
ok for d/c
Assessment/Plan
-
Assessment
BRIANNA
Acute anemia
Thrombocytopenia= chronic
Hypertension
History of colon cancer right hemicolectomy
Plan
Creatinine as of May 2024 was 1.4 and August 2023 0.8
protein creatinine ratio 4 g/24-hour protein just 2 g
cr fluctuating trend 3.2-3.4 subjectively non oliguric
mostly this is myeloma related , UA -bacteruria sample, serologies neg
Renal ultrasound shows chronic kidney disease and increased echogenicity and indication of a complex cyst along the right kidney possible neoplasm cannot be excluded per radiology read.= Consider urological evaluation though unlikely any further
treatment at her age.
No indication for renal biopsy/no acute need for dialysis
cont sodium bicarb for met acidosis
however should her renal function worsens she would not refuse dialysis
cont steroid course per heme and likely start chemo once d/c
will need nephro f/u with close f/u of labs in 2-3days
d/w pt and in detail
d/.w heme
f/u Onc and Nephro
-
-
Date of Service: November 17, 2024
CC / HPI / ROS
-
Chief Complaint:
BRIANNA
History of Present Illness:
BRIANNA/creatinine slightly donw at 3.2, bciarb better at 19
Proteinuria nonnephrotic range with 24-hour
BP stable
Hemoglobin low at 8.1
Review of Systems:
No chest pain or shortness of breath
no dysuria
c/o stomach upset
Labs
-
Labs:
WBC 8.7 10^3/uL (4.8-10.8) 11/17/24 07:13
RBC 2.56 10^6/uL (4.20-5.40) L 11/17/24 07:13
Hgb 8.1 g/dL (12.0-16.0) L 11/17/24 11:23
Hct 25.4 % (37.0-47.0) L 11/17/24 11:23
Plt Count 102 10^3/uL (130-400) L 11/17/24 07:13
Sodium 141 mmol/L (135-145) 11/17/24 07:13
Potassium 4.5 mmol/L (3.5-5.1) 11/17/24 07:13
Chloride 113 mmol/L (98-107) H 11/17/24 07:13
Carbon Dioxide 20 mmol/L (22-30) L 11/17/24 07:13
BUN 64 mg/dl (7-17) H 11/17/24 07:13
Creatinine 3.2 mg/dL (0.6-1.0) H 11/17/24 07:13
eGFR 13.42 11/17/24 07:13
Glucose 107 mg/dl (70-99) H 11/17/24 07:13
Calcium 9.3 mg/dl (8.4-10.2) 11/17/24 07:13
Phosphorus 4.3 mg/dl (2.5-4.5) 11/17/24 07:13
Albumin 4.0 g/dl (3.5-5.0) 11/10/24 15:38
Physical Exam
-
Vital Signs:
Vital Signs
Temp Pulse Resp BP Pulse Ox
98.3 F 76 16 124/90 96
11/17/24 07:28 11/17/24 11:16 11/17/24 11:16 11/17/24 09:09 11/17/24 08:30
Cardiovascular:: Regular rate and rhythm
Respiratory:: Bilateral: CTA
Lung Excursion:: Normal
Abdomen:: Nontender and Soft
Extremity Edema:: None: Bilateral:
Babb Catheter: No
--- NOTE | 2024-11-17 14:12 | CM ---
CM reviewed chart, patient seen beside with and son, discussed for discharge today. Patient declines need for home services. IMM reviewed, signed, placed in chart, patient provided with copy. Son will provide transportation home. CM will
continue to follow for all discharge planning needs.
Plan; home with spouse
[2024-11-17] MEDS: MAALOX 30 ML PO (14:44)
[2024-11-17 14:51] VITALS: BP 159/73
== END 2024-11-17 15:10 | disposition home or self-care (01) | DRG 682 ==
LOC: 4 WEST ACU 18:00
PROVIDERS: Emergency Medicine; Hospitalist; Internal Medicine Hematology & Oncology; Nurse Practitioner Family; Physician Assistant Medical; ADMITTING PHYSICIAN Internal Medicine; ATTENDING PHYSICIAN Internal Medicine; CONSULT PHYSICIAN Internal Medicine Gastroenterology; CONSULT PHYSICIAN Internal Medicine Hematology & Oncology; EMERGENCY PHYSICIAN Emergency Medicine; FAMILY PHYSICIAN Internal Medicine Geriatric Medicine; OTHER PHYSICIAN Specialist
PROC: 30233N1 Transfusion of Nonautologous Red Blood Cells into Peripheral Vein, Percutaneous Approach (ICD-10-PCS; 2024-11-10)
DX: N17.9 Acute kidney failure, unspecified (principal); J18.9 Pneumonia, unspecified organism; C90.00 Multiple myeloma not having achieved remission; D63.1 Anemia in chronic kidney disease; D53.9 Nutritional anemia, unspecified; I12.9 Hypertensive chronic kidney disease with stage 1 through stage 4 chronic kidney disease, or unspecified chronic kidney disease; J45.909 Unspecified asthma, uncomplicated; E03.9 Hypothyroidism, unspecified; D69.6 Thrombocytopenia, unspecified; N18.32 Chronic kidney disease, stage 3b; N28.1 Cyst of kidney, acquired; Z87.891 Personal history of nicotine dependence; Z90.49 Acquired absence of other specified parts of digestive tract; Z85.048 Personal history of other malignant neoplasm of rectum, rectosigmoid junction, and anus; Z79.899 Other long term (current) drug therapy; Z86.16 Personal history of COVID-19; Z87.442 Personal history of urinary calculi; R06.89 Other abnormalities of breathing; R09.02 Hypoxemia; Z11.52 Encounter for screening for COVID-19
CPT/HCPCS: 71045; 71250; 74176; 76775; 77075; 80048; 80053; 81003; 81015; 81050; 82570; 82607; 82668; 82728; 82746; 82784; 83010; 83516; 83521; 83540; 83550; 83615; 84100; 84155; 84156; 84165; 84300; 84443; 84550; 85014; 85018; 85025; 85027; 85045; 86038; 86160; 86255; 86334; 86335; 86850; 86900; 86901; 86920; 87086; 87502; 87811; 93306; 94640; 97116; 97162; 97166; 99291; P9016

== ENCOUNTER → 2024-11-19 09:41 | Outpatient (REF) | payer OTHER, SELFPAY ==
[2024-11-19 09:56] LABS: % Basophils 0.1 % (0-2); % Eosinophils 2.5 % (0-6); % Immature Granulocytes 0.9 % (0-0.5); % Lymphocytes 5.5 % (20.5-51.1); Absolute Eosinophils 0.2 10^3/uL (0-0.7); Absolute Immature Granulocytes 0.1 10^3/uL (0-0.05); Absolute Lymphocytes 0.5 10^3/uL (1.2-3.4); Absolute Monocytes 0.6 10^3/uL (0.1-0.6); Absolute Neutrophils 6.8 10^3/uL (1.4-6.5); Hematocrit 28.7 % (37.0-47.0); Mean Corp Hgb Conc. 31.4 g/dL (33.0-37.0); Mean Corpuscular Volume 92.6 fL (81.0-99.0); Platelet Count 135 10^3/uL (130-400); Red Cell Dist. Width 16.2 % (11.5-14.5); White Blood Cell Count 8.1 10^3/uL (4.8-10.8)
[2024-11-19 10:40] LABS: ALT (SGPT) 54 U/L (0-35); AST (SGOT) 24 U/L (14-36); Albumin 3.5 g/dl (3.5-5.0); Alkaline Phosphatase 86 U/L (38-126); Blood Urea Nitrogen 64 mg/dl (7-17); Calcium 9.5 mg/dl (8.4-10.2); Carbon Dioxide 24 mmol/L (22-30); Chloride 111 mmol/L (98-107); Glucose 75 mg/dl (70-99); LDH 224 U/L (120-246); Potassium 4.3 mmol/L (3.5-5.1); Sodium 142 mmol/L (135-145); Total Bilirubin 0.6 mg/dl (0.2-1.3); Total Protein 5.5 g/dl (6.3-8.2); Uric Acid 6.4 mg/dl (2.5-6.2); eGFR 16.45
== END ==
LOC: OIDL 09:41
PROVIDERS: ATTENDING PHYSICIAN Internal Medicine Hematology & Oncology
DX: C90.00 Multiple myeloma not having achieved remission (principal)
CPT/HCPCS: 80053; 83615; 84550; 85025

== ENCOUNTER → 2024-11-25 10:06 | Outpatient (REF) | payer OTHER, SELFPAY ==
[2024-11-25 10:20] LABS: % Basophils 0.7 % (0-2); % Eosinophils 1.5 % (0-6); % Immature Granulocytes 2.2 % (0-0.5); % Lymphocytes 8.1 % (20.5-51.1); % Monocytes 10.9 % (1.7-9.3); % Neutrophils 76.6 % (42.2-75.2); Absolute Eosinophils 0.1 10^3/uL (0-0.7); Absolute Immature Granulocytes 0.1 10^3/uL (0-0.05); Absolute Lymphocytes 0.4 10^3/uL (1.2-3.4); Absolute Monocytes 0.6 10^3/uL (0.1-0.6); Absolute Neutrophils 4.1 10^3/uL (1.4-6.5); Hematocrit 27.2 % (37.0-47.0); Hemoglobin 8.7 g/dL (12.0-16.0); Mean Corpuscular Volume 90.7 fL (81.0-99.0); Mean Platelet Volume 10.7 fL (7.4-10.4); Platelet Count 93 10^3/uL (130-400); Red Cell Dist. Width 16.2 % (11.5-14.5); White Blood Cell Count 5.4 10^3/uL (4.8-10.8)
[2024-11-25 12:17] LABS: ALT (SGPT) 23 U/L (0-35); AST (SGOT) 20 U/L (14-36); Albumin 3.4 g/dl (3.5-5.0); Alkaline Phosphatase 79 U/L (38-126); Blood Urea Nitrogen 51 mg/dl (7-17); Calcium 9.1 mg/dl (8.4-10.2); Carbon Dioxide 25 mmol/L (22-30); Chloride 107 mmol/L (98-107); Glucose 93 mg/dl (70-99); Phosphorus 3.8 mg/dl (2.5-4.5); Potassium 4.9 mmol/L (3.5-5.1); Sodium 140 mmol/L (135-145); Total Bilirubin 0.6 mg/dl (0.2-1.3); Total Protein 5.4 g/dl (6.3-8.2); Uric Acid 6.4 mg/dl (2.5-6.2); eGFR 15.75
== END ==
LOC: OIDL 10:06
PROVIDERS: ATTENDING PHYSICIAN Internal Medicine Hematology & Oncology; FAMILY PHYSICIAN Internal Medicine Geriatric Medicine
DX: C90.00 Multiple myeloma not having achieved remission (principal)
CPT/HCPCS: 36415; 80053; 84100; 84550; 85025

== ENCOUNTER → 2024-12-02 09:52 | Outpatient (REF) | payer OTHER, SELFPAY ==
[2024-12-02 10:04] LABS: % Basophils 0.8 % (0-2); % Eosinophils 1.8 % (0-6); % Immature Granulocytes 2.4 % (0-0.5); % Lymphocytes 9.5 % (20.5-51.1); % Monocytes 8.5 % (1.7-9.3); Absolute Eosinophils 0.1 10^3/uL (0-0.7); Absolute Immature Granulocytes 0.1 10^3/uL (0-0.05); Absolute Lymphocytes 0.5 10^3/uL (1.2-3.4); Absolute Monocytes 0.4 10^3/uL (0.1-0.6); Absolute Neutrophils 3.8 10^3/uL (1.4-6.5); Hematocrit 25.6 % (37.0-47.0); Hemoglobin 8.1 g/dL (12.0-16.0); Mean Corp Hgb Conc. 31.6 g/dL (33.0-37.0); Mean Corpuscular Hgb 29.6 pg (27.0-31.0); Mean Corpuscular Volume 93.4 fL (81.0-99.0); Mean Platelet Volume 10.4 fL (7.4-10.4); Platelet Count 87 10^3/uL (130-400); Red Blood Cell Count 2.74 10^6/uL (4.20-5.40); Red Cell Dist. Width 16.7 % (11.5-14.5); White Blood Cell Count 4.9 10^3/uL (4.8-10.8)
[2024-12-02 11:34] LABS: ALT (SGPT) 21 U/L (0-35); AST (SGOT) 23 U/L (14-36); Albumin 3.1 g/dl (3.5-5.0); Alkaline Phosphatase 79 U/L (38-126); Blood Urea Nitrogen 37 mg/dl (7-17); Calcium 9.4 mg/dl (8.4-10.2); Carbon Dioxide 25 mmol/L (22-30); Chloride 107 mmol/L (98-107); Glucose 99 mg/dl (70-99); Iron 57 ug/dl (37-170); Potassium 4.5 mmol/L (3.5-5.1); Sodium 138 mmol/L (135-145); Total Bilirubin 0.5 mg/dl (0.2-1.3); Total Protein 5.1 g/dl (6.3-8.2); eGFR 18.95
[2024-12-02 11:43] LABS: Percent Saturation 27 % (20-50); Total Iron Binding Capacity 210 ug/dl (265-497)
[2024-12-03 12:16] LABS: Erythropoietin (EPO) 12 mU/mL (4-27)
== END ==
LOC: OIDL 09:52
PROVIDERS: ATTENDING PHYSICIAN Internal Medicine Hematology & Oncology; FAMILY PHYSICIAN Internal Medicine Geriatric Medicine
DX: C90.00 Multiple myeloma not having achieved remission (principal); D63.1 Anemia in chronic kidney disease; D63.0 Anemia in neoplastic disease
CPT/HCPCS: 36415; 80053; 82668; 82728; 83540; 83550; 85025

== ENCOUNTER → 2024-12-09 10:01 | Outpatient (REF) | payer OTHER, SELFPAY ==
[2024-12-09 10:27] LABS: % Basophils 1.2 % (0-2); % Eosinophils 2.6 % (0-6); % Immature Granulocytes 2.4 % (0-0.5); % Lymphocytes 12.5 % (20.5-51.1); % Neutrophils 72.3 % (42.2-75.2); Absolute Basophils 0.1 10^3/uL (0-0.2); Absolute Eosinophils 0.1 10^3/uL (0-0.7); Absolute Immature Granulocytes 0.1 10^3/uL (0-0.05); Absolute Lymphocytes 0.5 10^3/uL (1.2-3.4); Absolute Monocytes 0.4 10^3/uL (0.1-0.6); Absolute Neutrophils 3.1 10^3/uL (1.4-6.5); Hematocrit 25.5 % (37.0-47.0); Hemoglobin 7.9 g/dL (12.0-16.0); Mean Corpuscular Hgb 28.9 pg (27.0-31.0); Mean Corpuscular Volume 93.4 fL (81.0-99.0); Mean Platelet Volume 11.5 fL (7.4-10.4); Platelet Count 116 10^3/uL (130-400); Red Blood Cell Count 2.73 10^6/uL (4.20-5.40); Red Cell Dist. Width 16.9 % (11.5-14.5); White Blood Cell Count 4.2 10^3/uL (4.8-10.8)
[2024-12-09 11:36] LABS: ALT (SGPT) 26 U/L (0-35); AST (SGOT) 22 U/L (14-36); Albumin 3.4 g/dl (3.5-5.0); Alkaline Phosphatase 92 U/L (38-126); Blood Urea Nitrogen 36 mg/dl (7-17); Carbon Dioxide 23 mmol/L (22-30); Chloride 112 mmol/L (98-107); Glucose 99 mg/dl (70-99); Phosphorus 3.8 mg/dl (2.5-4.5); Potassium 4.9 mmol/L (3.5-5.1); Sodium 142 mmol/L (135-145); Total Bilirubin 0.5 mg/dl (0.2-1.3); Total Protein 5.5 g/dl (6.3-8.2); Uric Acid 6.7 mg/dl (2.5-6.2); eGFR 19.94
[2024-12-09 16:31] LABS: Urine Protein 88 mg/dl
[2024-12-09 17:05] LABS: Protein/creatinine Ratio 1.5
[2024-12-12 09:39] LABS: Intact PTH 323.3 pg/ml (13.6-85.8)
== END ==
LOC: OIDL 10:01
PROVIDERS: ATTENDING PHYSICIAN Internal Medicine Hematology & Oncology; FAMILY PHYSICIAN Internal Medicine Geriatric Medicine; REFERRING PHYSICIAN Internal Medicine Nephrology
DX: C90.00 Multiple myeloma not having achieved remission (principal); F63.1 Pyromania; F63.0 Pathological gambling; N18.4 Chronic kidney disease, stage 4 (severe)
CPT/HCPCS: 36415; 80053; 82570; 83970; 84100; 84156; 84550; 85025

== ENCOUNTER → 2024-12-16 09:51 | Outpatient (REF) | payer OTHER, SELFPAY ==
[2024-12-16 10:03] LABS: % Basophils 1.1 % (0-2); % Eosinophils 2.3 % (0-6); % Immature Granulocytes 3.8 % (0-0.5); % Lymphocytes 13.2 % (20.5-51.1); % Monocytes 9.2 % (1.7-9.3); % Neutrophils 70.4 % (42.2-75.2); Absolute Basophils 0.1 10^3/uL (0-0.2); Absolute Eosinophils 0.1 10^3/uL (0-0.7); Absolute Immature Granulocytes 0.2 10^3/uL (0-0.05); Absolute Lymphocytes 0.7 10^3/uL (1.2-3.4); Absolute Monocytes 0.5 10^3/uL (0.1-0.6); Absolute Neutrophils 3.7 10^3/uL (1.4-6.5); Hematocrit 26.3 % (37.0-47.0); Mean Corp Hgb Conc. 30.4 g/dL (33.0-37.0); Mean Corpuscular Hgb 29.6 pg (27.0-31.0); Mean Corpuscular Volume 97.4 fL (81.0-99.0); Platelet Count 174 10^3/uL (130-400); Red Cell Dist. Width 19.1 % (11.5-14.5); White Blood Cell Count 5.3 10^3/uL (4.8-10.8)
[2024-12-16 11:26] LABS: ALT (SGPT) 19 U/L (0-35); AST (SGOT) 17 U/L (14-36); Albumin 3.3 g/dl (3.5-5.0); Alkaline Phosphatase 73 U/L (38-126); Blood Urea Nitrogen 29 mg/dl (7-17); Carbon Dioxide 26 mmol/L (22-30); Chloride 110 mmol/L (98-107); Glucose 74 mg/dl (70-99); Potassium 5.1 mmol/L (3.5-5.1); Sodium 142 mmol/L (135-145); Total Bilirubin 0.5 mg/dl (0.2-1.3); Total Protein 5.3 g/dl (6.3-8.2); Uric Acid 6.5 mg/dl (2.5-6.2); eGFR 21.04
[2024-12-18 05:01] LABS: Beta-2-Microglobulin 7.8 mg/L (<=3.0)
[2024-12-19 02:51] LABS: Albumin 3.56 g/dL (3.75-5.01); Alpha 1 Globulin 0.37 g/dL (0.19-0.46); Alpha 2 Globulin 0.54 g/dL (0.48-1.05); Free Kappa Light Chains,Quant 17.27 mg/L (3.30-19.40); Free Lambda Light Chains,Quant 1320.66 mg/L (5.71-26.30); IgA 28 mg/dL (68-408); IgG 484 mg/dL (768-1632); IgM 31 mg/dL (35-263); Immunofixation Electrophoresis IFE Done; Kappa/Lambda Fr Light Ratio 0.01 (0.26-1.65); Total Protein-Electrophoresis 5.4 g/dL (6.3-8.2)
== END ==
LOC: OIDL 09:51
PROVIDERS: ATTENDING PHYSICIAN Internal Medicine Hematology & Oncology; FAMILY PHYSICIAN Internal Medicine Geriatric Medicine
DX: C90.00 Multiple myeloma not having achieved remission (principal)
CPT/HCPCS: 36415; 80053; 82232; 82784; 83521; 84100; 84155; 84165; 84550; 85025; 86334

== ENCOUNTER → 2024-12-23 10:08 | Outpatient (REF) | payer OTHER, SELFPAY ==
[2024-12-23 10:36] LABS: % Basophils 1.2 % (0-2); % Eosinophils 1.7 % (0-6); % Immature Granulocytes 1.2 % (0-0.5); % Lymphocytes 11.2 % (20.5-51.1); % Monocytes 8.7 % (1.7-9.3); Absolute Basophils 0.1 10^3/uL (0-0.2); Absolute Eosinophils 0.1 10^3/uL (0-0.7); Absolute Immature Granulocytes 0.1 10^3/uL (0-0.05); Absolute Lymphocytes 0.6 10^3/uL (1.2-3.4); Absolute Monocytes 0.5 10^3/uL (0.1-0.6); Absolute Neutrophils 3.9 10^3/uL (1.4-6.5); Hematocrit 27.8 % (37.0-47.0); Hemoglobin 8.5 g/dL (12.0-16.0); Mean Corp Hgb Conc. 30.6 g/dL (33.0-37.0); Mean Corpuscular Volume 98.2 fL (81.0-99.0); Mean Platelet Volume 11.3 fL (7.4-10.4); Platelet Count 118 10^3/uL (130-400); Red Blood Cell Count 2.83 10^6/uL (4.20-5.40); Red Cell Dist. Width 19.6 % (11.5-14.5); White Blood Cell Count 5.2 10^3/uL (4.8-10.8)
[2024-12-23 11:46] LABS: ALT (SGPT) 15 U/L (0-35); AST (SGOT) 17 U/L (14-36); Albumin 3.4 g/dl (3.5-5.0); Alkaline Phosphatase 58 U/L (38-126); Blood Urea Nitrogen 27 mg/dl (7-17); Calcium 9.6 mg/dl (8.4-10.2); Carbon Dioxide 24 mmol/L (22-30); Chloride 113 mmol/L (98-107); Glucose 102 mg/dl (70-99); Phosphorus 4.3 mg/dl (2.5-4.5); Potassium 5.4 mmol/L (3.5-5.1); Sodium 143 mmol/L (135-145); Total Bilirubin 0.5 mg/dl (0.2-1.3); Total Protein 5.3 g/dl (6.3-8.2); Uric Acid 7.2 mg/dl (2.5-6.2); eGFR 18.95
== END ==
LOC: OIDL 10:08
PROVIDERS: ATTENDING PHYSICIAN Internal Medicine Hematology & Oncology; FAMILY PHYSICIAN Internal Medicine Geriatric Medicine
DX: C90.00 Multiple myeloma not having achieved remission (principal); D63.1 Anemia in chronic kidney disease; D63.0 Anemia in neoplastic disease
CPT/HCPCS: 36415; 80053; 84100; 84550; 85025

== ENCOUNTER → 2024-12-30 14:54 | Outpatient (REF) | payer OTHER, SELFPAY ==
[2024-12-30 11:15] LABS: % Basophils 0.6 % (0-2); % Eosinophils 1.8 % (0-6); % Immature Granulocytes 1.4 % (0-0.5); % Lymphocytes 13.5 % (20.5-51.1); % Monocytes 8.3 % (1.7-9.3); % Neutrophils 74.4 % (42.2-75.2); Absolute Eosinophils 0.1 10^3/uL (0-0.7); Absolute Immature Granulocytes 0.1 10^3/uL (0-0.05); Absolute Lymphocytes 0.7 10^3/uL (1.2-3.4); Absolute Monocytes 0.4 10^3/uL (0.1-0.6); Absolute Neutrophils 3.7 10^3/uL (1.4-6.5); Hematocrit 31.2 % (37.0-47.0); Hemoglobin 9.5 g/dL (12.0-16.0); Mean Corp Hgb Conc. 30.4 g/dL (33.0-37.0); Mean Corpuscular Hgb 30.1 pg (27.0-31.0); Mean Corpuscular Volume 98.7 fL (81.0-99.0); Mean Platelet Volume 12.4 fL (7.4-10.4); Nucleated Red Blood Cells % 0 %; Platelet Count 115 10^3/uL (130-400); Red Blood Cell Count 3.16 10^6/uL (4.20-5.40); Red Cell Dist. Width 18.9 % (11.5-14.5)
[2024-12-30 11:25] LABS: ALT (SGPT) 17 U/L (0-35); AST (SGOT) 18 U/L (14-36); Alkaline Phosphatase 69 U/L (38-126); Blood Urea Nitrogen 28 mg/dl (7-17); Carbon Dioxide 24 mmol/L (22-30); Chloride 111 mmol/L (98-107); Glucose 100 mg/dl (70-99); Potassium 4.6 mmol/L (3.5-5.1); Sodium 142 mmol/L (135-145); Total Bilirubin 0.6 mg/dl (0.2-1.3); Total Protein 5.8 g/dl (6.3-8.2); eGFR 23.59
== END ==
LOC: OIDL 14:54
PROVIDERS: ATTENDING PHYSICIAN Nurse Practitioner Acute Care
DX: C90.00 Multiple myeloma not having achieved remission (principal)
CPT/HCPCS: 80053; 85025

== ENCOUNTER → 2025-01-06 09:59 | Outpatient (REF) | payer OTHER, SELFPAY ==
[2025-01-06 10:13] LABS: % Basophils 1.1 % (0-2); % Eosinophils 2.5 % (0-6); % Immature Granulocytes 2.5 % (0-0.5); % Lymphocytes 13.1 % (20.5-51.1); % Monocytes 10.5 % (1.7-9.3); % Neutrophils 70.3 % (42.2-75.2); Absolute Basophils 0.1 10^3/uL (0-0.2); Absolute Eosinophils 0.1 10^3/uL (0-0.7); Absolute Immature Granulocytes 0.1 10^3/uL (0-0.05); Absolute Lymphocytes 0.7 10^3/uL (1.2-3.4); Absolute Monocytes 0.6 10^3/uL (0.1-0.6); Absolute Neutrophils 3.7 10^3/uL (1.4-6.5); Hematocrit 31.8 % (37.0-47.0); Hemoglobin 9.8 g/dL (12.0-16.0); Mean Corp Hgb Conc. 30.8 g/dL (33.0-37.0); Mean Corpuscular Hgb 30.5 pg (27.0-31.0); Mean Corpuscular Volume 99.1 fL (81.0-99.0); Mean Platelet Volume 11.1 fL (7.4-10.4); Platelet Count 137 10^3/uL (130-400); Red Blood Cell Count 3.21 10^6/uL (4.20-5.40); Red Cell Dist. Width 18.3 % (11.5-14.5); White Blood Cell Count 5.3 10^3/uL (4.8-10.8)
[2025-01-06 11:35] LABS: ALT (SGPT) 13 U/L (0-35); AST (SGOT) 18 U/L (14-36); Albumin 3.9 g/dl (3.5-5.0); Alkaline Phosphatase 58 U/L (38-126); Blood Urea Nitrogen 32 mg/dl (7-17); Calcium 9.3 mg/dl (8.4-10.2); Carbon Dioxide 23 mmol/L (22-30); Chloride 115 mmol/L (98-107); Glucose 103 mg/dl (70-99); Potassium 4.9 mmol/L (3.5-5.1); Sodium 143 mmol/L (135-145); Total Bilirubin 0.6 mg/dl (0.2-1.3); Total Protein 5.5 g/dl (6.3-8.2); eGFR 22.25
== END ==
LOC: OIDL 09:59
PROVIDERS: ATTENDING PHYSICIAN Internal Medicine Hematology & Oncology; FAMILY PHYSICIAN Internal Medicine Geriatric Medicine
DX: C90.00 Multiple myeloma not having achieved remission (principal); D63.1 Anemia in chronic kidney disease; D63.0 Anemia in neoplastic disease
CPT/HCPCS: 36415; 80053; 85025

== ENCOUNTER → 2025-01-13 10:08 | Outpatient (REF) | payer OTHER, SELFPAY ==
[2025-01-13 10:20] LABS: % Basophils 0.7 % (0-2); % Eosinophils 0.3 % (0-6); % Immature Granulocytes 0.9 % (0-0.5); % Lymphocytes 7.9 % (20.5-51.1); % Monocytes 9.8 % (1.7-9.3); % Neutrophils 80.4 % (42.2-75.2); Absolute Basophils 0.1 10^3/uL (0-0.2); Absolute Immature Granulocytes 0.1 10^3/uL (0-0.05); Absolute Lymphocytes 0.6 10^3/uL (1.2-3.4); Absolute Monocytes 0.7 10^3/uL (0.1-0.6); Absolute Neutrophils 5.6 10^3/uL (1.4-6.5); Hematocrit 34.6 % (37.0-47.0); Mean Corp Hgb Conc. 31.8 g/dL (33.0-37.0); Mean Corpuscular Hgb 31.1 pg (27.0-31.0); Mean Corpuscular Volume 97.7 fL (81.0-99.0); Mean Platelet Volume 11.9 fL (7.4-10.4); Platelet Count 151 10^3/uL (130-400); Red Blood Cell Count 3.54 10^6/uL (4.20-5.40); Red Cell Dist. Width 17.3 % (11.5-14.5); White Blood Cell Count 6.9 10^3/uL (4.8-10.8)
[2025-01-13 12:24] LABS: ALT (SGPT) 15 U/L (0-35); AST (SGOT) 18 U/L (14-36); Albumin 4.1 g/dl (3.5-5.0); Alkaline Phosphatase 56 U/L (38-126); Blood Urea Nitrogen 36 mg/dl (7-17); Carbon Dioxide 26 mmol/L (22-30); Chloride 111 mmol/L (98-107); Glucose 108 mg/dl (70-99); Phosphorus 3.9 mg/dl (2.5-4.5); Potassium 4.5 mmol/L (3.5-5.1); Sodium 142 mmol/L (135-145); Total Bilirubin 0.6 mg/dl (0.2-1.3); Total Protein 6.1 g/dl (6.3-8.2); Uric Acid 6.3 mg/dl (2.5-6.2); eGFR 22.25
[2025-01-16 01:16] LABS: Beta-2-Microglobulin 6.8 mg/L (<=3.0)
== END ==
LOC: OIDL 10:08
PROVIDERS: Internal Medicine Hematology & Oncology; Nurse Practitioner Acute Care; ATTENDING PHYSICIAN Psychiatry & Neurology Neurology
DX: C90.00 Multiple myeloma not having achieved remission (principal)
CPT/HCPCS: 36415; 80053; 82232; 82784; 83521; 84100; 84155; 84165; 84550; 85025; 86334

== ENCOUNTER → 2025-01-20 10:12 | Outpatient (REF) | payer OTHER, SELFPAY ==
[2025-01-20 10:26] LABS: % Basophils 1.2 % (0-2); % Eosinophils 2.7 % (0-6); % Immature Granulocytes 1.8 % (0-0.5); % Monocytes 10.7 % (1.7-9.3); % Neutrophils 72.6 % (42.2-75.2); Absolute Basophils 0.1 10^3/uL (0-0.2); Absolute Eosinophils 0.2 10^3/uL (0-0.7); Absolute Immature Granulocytes 0.1 10^3/uL (0-0.05); Absolute Lymphocytes 0.8 10^3/uL (1.2-3.4); Absolute Monocytes 0.8 10^3/uL (0.1-0.6); Absolute Neutrophils 5.6 10^3/uL (1.4-6.5); Hematocrit 35.5 % (37.0-47.0); Mean Platelet Volume 11.5 fL (7.4-10.4); Platelet Count 125 10^3/uL (130-400); Red Blood Cell Count 3.55 10^6/uL (4.20-5.40); Red Cell Dist. Width 17.4 % (11.5-14.5); White Blood Cell Count 7.7 10^3/uL (4.8-10.8)
[2025-01-20 11:24] LABS: ALT (SGPT) 16 U/L (0-35); AST (SGOT) 20 U/L (14-36); Albumin 3.9 g/dl (3.5-5.0); Alkaline Phosphatase 59 U/L (38-126); Blood Urea Nitrogen 38 mg/dl (7-17); Calcium 10.1 mg/dl (8.4-10.2); Carbon Dioxide 27 mmol/L (22-30); Chloride 112 mmol/L (98-107); Glucose 88 mg/dl (70-99); Phosphorus 4.2 mg/dl (2.5-4.5); Potassium 4.7 mmol/L (3.5-5.1); Sodium 143 mmol/L (135-145); Total Bilirubin 0.7 mg/dl (0.2-1.3); Total Protein 5.7 g/dl (6.3-8.2); Uric Acid 7.1 mg/dl (2.5-6.2); eGFR 25.08
== END ==
LOC: OIDL 10:12
PROVIDERS: ATTENDING PHYSICIAN Psychiatry & Neurology Neurology; FAMILY PHYSICIAN Internal Medicine Geriatric Medicine
DX: C90.00 Multiple myeloma not having achieved remission (principal)
CPT/HCPCS: 36415; 80053; 84100; 84550; 85025

== ENCOUNTER → 2025-01-27 09:53 | Outpatient (REF) | payer OTHER, SELFPAY ==
[2025-01-27 10:02] LABS: % Basophils 1.1 % (0-2); % Eosinophils 1.7 % (0-6); % Immature Granulocytes 0.4 % (0-0.5); % Lymphocytes 10.4 % (20.5-51.1); % Monocytes 7.5 % (1.7-9.3); % Neutrophils 78.9 % (42.2-75.2); Absolute Basophils 0.1 10^3/uL (0-0.2); Absolute Eosinophils 0.1 10^3/uL (0-0.7); Absolute Lymphocytes 0.7 10^3/uL (1.2-3.4); Absolute Monocytes 0.5 10^3/uL (0.1-0.6); Absolute Neutrophils 5.6 10^3/uL (1.4-6.5); Hematocrit 36.8 % (37.0-47.0); Hemoglobin 11.6 g/dL (12.0-16.0); Mean Corp Hgb Conc. 31.5 g/dL (33.0-37.0); Mean Corpuscular Hgb 31.1 pg (27.0-31.0); Mean Corpuscular Volume 98.7 fL (81.0-99.0); Mean Platelet Volume 12.7 fL (7.4-10.4); Platelet Count 101 10^3/uL (130-400); Red Blood Cell Count 3.73 10^6/uL (4.20-5.40); Red Cell Dist. Width 16.2 % (11.5-14.5); White Blood Cell Count 7.1 10^3/uL (4.8-10.8)
[2025-01-27 11:25] LABS: ALT (SGPT) 15 U/L (0-35); AST (SGOT) 18 U/L (14-36); Albumin 3.9 g/dl (3.5-5.0); Alkaline Phosphatase 56 U/L (38-126); Blood Urea Nitrogen 35 mg/dl (7-17); Calcium 9.7 mg/dl (8.4-10.2); Carbon Dioxide 27 mmol/L (22-30); Chloride 109 mmol/L (98-107); Glucose 135 mg/dl (70-99); Phosphorus 3.7 mg/dl (2.5-4.5); Potassium 4.5 mmol/L (3.5-5.1); Sodium 140 mmol/L (135-145); Total Bilirubin 0.8 mg/dl (0.2-1.3); Total Protein 5.7 g/dl (6.3-8.2); Uric Acid 6.4 mg/dl (2.5-6.2); eGFR 23.59
== END ==
LOC: OIDL 09:53
PROVIDERS: ATTENDING PHYSICIAN Internal Medicine Hematology & Oncology; FAMILY PHYSICIAN Internal Medicine Geriatric Medicine
DX: C90.00 Multiple myeloma not having achieved remission (principal)
CPT/HCPCS: 36415; 80053; 84100; 84550; 85025

== ENCOUNTER → 2025-02-03 09:51 | Outpatient (REF) | payer OTHER, SELFPAY ==
[2025-02-03 10:15] LABS: % Eosinophils 2.1 % (0-6); % Immature Granulocytes 0.6 % (0-0.5); % Lymphocytes 12.5 % (20.5-51.1); % Monocytes 11.5 % (1.7-9.3); % Neutrophils 72.3 % (42.2-75.2); Absolute Basophils 0.1 10^3/uL (0-0.2); Absolute Eosinophils 0.1 10^3/uL (0-0.7); Absolute Lymphocytes 0.8 10^3/uL (1.2-3.4); Absolute Monocytes 0.8 10^3/uL (0.1-0.6); Absolute Neutrophils 4.8 10^3/uL (1.4-6.5); Hematocrit 35.1 % (37.0-47.0); Hemoglobin 11.1 g/dL (12.0-16.0); Mean Corp Hgb Conc. 31.6 g/dL (33.0-37.0); Mean Corpuscular Hgb 31.1 pg (27.0-31.0); Mean Corpuscular Volume 98.3 fL (81.0-99.0); Mean Platelet Volume 11.6 fL (7.4-10.4); Platelet Count 114 10^3/uL (130-400); Red Blood Cell Count 3.57 10^6/uL (4.20-5.40); Red Cell Dist. Width 15.6 % (11.5-14.5); White Blood Cell Count 6.7 10^3/uL (4.8-10.8)
[2025-02-03 11:19] LABS: ALT (SGPT) 22 U/L (0-35); AST (SGOT) 25 U/L (14-36); Albumin 3.9 g/dl (3.5-5.0); Alkaline Phosphatase 63 U/L (38-126); Blood Urea Nitrogen 38 mg/dl (7-17); Calcium 9.9 mg/dl (8.4-10.2); Carbon Dioxide 25 mmol/L (22-30); Chloride 111 mmol/L (98-107); Glucose 86 mg/dl (70-99); Phosphorus 3.4 mg/dl (2.5-4.5); Potassium 4.4 mmol/L (3.5-5.1); Sodium 142 mmol/L (135-145); Total Bilirubin 0.6 mg/dl (0.2-1.3); Total Protein 5.7 g/dl (6.3-8.2); eGFR 23.59
[2025-02-03 13:46] LABS: Uric Acid 6.4 mg/dl (2.5-6.2)
== END ==
LOC: OIDL 09:51
PROVIDERS: ATTENDING PHYSICIAN Internal Medicine Hematology & Oncology; FAMILY PHYSICIAN Internal Medicine Geriatric Medicine
DX: C90.00 Multiple myeloma not having achieved remission (principal)
CPT/HCPCS: 36415; 80053; 84100; 84550; 85025

== ENCOUNTER → 2025-02-10 09:59 | Outpatient (REF) | payer OTHER, SELFPAY ==
[2025-02-10 10:17] LABS: % Basophils 0.6 % (0-2); % Eosinophils 1.9 % (0-6); % Immature Granulocytes 0.3 % (0-0.5); % Lymphocytes 12.2 % (20.5-51.1); % Monocytes 10.7 % (1.7-9.3); % Neutrophils 74.3 % (42.2-75.2); Absolute Eosinophils 0.1 10^3/uL (0-0.7); Absolute Lymphocytes 0.8 10^3/uL (1.2-3.4); Absolute Monocytes 0.7 10^3/uL (0.1-0.6); Absolute Neutrophils 4.6 10^3/uL (1.4-6.5); Hematocrit 34.2 % (37.0-47.0); Hemoglobin 10.7 g/dL (12.0-16.0); Mean Corp Hgb Conc. 31.3 g/dL (33.0-37.0); Mean Corpuscular Hgb 30.5 pg (27.0-31.0); Mean Corpuscular Volume 97.4 fL (81.0-99.0); Mean Platelet Volume 11.3 fL (7.4-10.4); Platelet Count 128 10^3/uL (130-400); Red Blood Cell Count 3.51 10^6/uL (4.20-5.40); Red Cell Dist. Width 15.6 % (11.5-14.5); White Blood Cell Count 6.2 10^3/uL (4.8-10.8)
[2025-02-10 11:04] LABS: ALT (SGPT) 23 U/L (0-35); AST (SGOT) 21 U/L (14-36); Albumin 3.9 g/dl (3.5-5.0); Alkaline Phosphatase 63 U/L (38-126); Blood Urea Nitrogen 33 mg/dl (7-17); Carbon Dioxide 25 mmol/L (22-30); Chloride 113 mmol/L (98-107); Glucose 80 mg/dl (70-99); Phosphorus 3.8 mg/dl (2.5-4.5); Potassium 4.7 mmol/L (3.5-5.1); Sodium 143 mmol/L (135-145); Total Bilirubin 0.5 mg/dl (0.2-1.3); Total Protein 5.8 g/dl (6.3-8.2); Uric Acid 6.1 mg/dl (2.5-6.2); eGFR 25.08
[2025-02-11 01:55] LABS: IgG 439 mg/dl (700-1600)
[2025-02-12 08:16] LABS: Beta-2-Microglobulin 6.9 mg/L (<=3.0)
== END ==
LOC: OIDL 09:59
PROVIDERS: ATTENDING PHYSICIAN Internal Medicine Hematology & Oncology; FAMILY PHYSICIAN Internal Medicine Geriatric Medicine
DX: C90.00 Multiple myeloma not having achieved remission (principal)
CPT/HCPCS: 36415; 80053; 82232; 82784; 83521; 84100; 84155; 84165; 84550; 85025; 86334

== ENCOUNTER → 2025-02-17 10:10 | Outpatient (REF) | payer OTHER, SELFPAY ==
[2025-02-17 10:48] LABS: % Basophils 1.6 % (0-2); % Eosinophils 2.6 % (0-6); % Immature Granulocytes 0.4 % (0-0.5); % Lymphocytes 15.5 % (20.5-51.1); % Monocytes 12.2 % (1.7-9.3); % Neutrophils 67.7 % (42.2-75.2); Absolute Basophils 0.1 10^3/uL (0-0.2); Absolute Eosinophils 0.1 10^3/uL (0-0.7); Absolute Lymphocytes 0.8 10^3/uL (1.2-3.4); Absolute Monocytes 0.6 10^3/uL (0.1-0.6); Absolute Neutrophils 3.4 10^3/uL (1.4-6.5); Hematocrit 31.9 % (37.0-47.0); Hemoglobin 10.1 g/dL (12.0-16.0); Mean Corp Hgb Conc. 31.7 g/dL (33.0-37.0); Mean Corpuscular Hgb 30.9 pg (27.0-31.0); Mean Corpuscular Volume 97.6 fL (81.0-99.0); Mean Platelet Volume 12.1 fL (7.4-10.4); Platelet Count 99 10^3/uL (130-400); Red Blood Cell Count 3.27 10^6/uL (4.20-5.40); Red Cell Dist. Width 15.1 % (11.5-14.5)
[2025-02-17 11:52] LABS: ALT (SGPT) 16 U/L (0-35); AST (SGOT) 19 U/L (14-36); Albumin 3.8 g/dl (3.5-5.0); Alkaline Phosphatase 56 U/L (38-126); Blood Urea Nitrogen 40 mg/dl (7-17); Carbon Dioxide 25 mmol/L (22-30); Chloride 112 mmol/L (98-107); Glucose 92 mg/dl (70-99); Phosphorus 3.7 mg/dl (2.5-4.5); Sodium 142 mmol/L (135-145); Total Bilirubin 0.5 mg/dl (0.2-1.3); Total Protein 5.6 g/dl (6.3-8.2); Uric Acid 7.3 mg/dl (2.5-6.2); eGFR 23.59
== END ==
LOC: OIDL 10:10
PROVIDERS: ATTENDING PHYSICIAN Internal Medicine Hematology & Oncology; FAMILY PHYSICIAN Internal Medicine Geriatric Medicine
DX: C90.00 Multiple myeloma not having achieved remission (principal)
CPT/HCPCS: 36415; 80053; 84100; 84550; 85025

== ENCOUNTER → 2025-02-24 10:10 | Outpatient (REF) | payer OTHER, SELFPAY ==
[2025-02-24 10:23] LABS: Hematocrit 32.6 % (37.0-47.0); Hemoglobin 10.5 g/dL (12.0-16.0); Mean Corp Hgb Conc. 32.2 g/dL (33.0-37.0); Mean Corpuscular Volume 96.7 fL (81.0-99.0); Platelet Count 115 10^3/uL (130-400); Red Cell Dist. Width 14.9 % (11.5-14.5)
[2025-02-24 11:03] LABS: ALT (SGPT) 18 U/L (0-35); AST (SGOT) 21 U/L (14-36); Albumin 3.8 g/dl (3.5-5.0); Alkaline Phosphatase 61 U/L (38-126); Blood Urea Nitrogen 34 mg/dl (7-17); Calcium 9.9 mg/dl (8.4-10.2); Carbon Dioxide 25 mmol/L (22-30); Chloride 112 mmol/L (98-107); Glucose 95 mg/dl (70-99); Potassium 4.7 mmol/L (3.5-5.1); Sodium 140 mmol/L (135-145); Total Protein 5.7 g/dl (6.3-8.2); Uric Acid 5.9 mg/dl (2.5-6.2); eGFR 23.59
== END ==
LOC: OIDL 10:10
PROVIDERS: ATTENDING PHYSICIAN Internal Medicine Hematology & Oncology; FAMILY PHYSICIAN Internal Medicine Geriatric Medicine
DX: C90.00 Multiple myeloma not having achieved remission (principal); D63.1 Anemia in chronic kidney disease; D63.0 Anemia in neoplastic disease
CPT/HCPCS: 36415; 80053; 84100; 84550; 85025

== ENCOUNTER → 2025-03-03 09:58 | Outpatient (REF) | payer OTHER, SELFPAY ==
[2025-03-03 10:12] LABS: Hematocrit 33.5 % (37.0-47.0); Hemoglobin 10.7 g/dL (12.0-16.0); Mean Corp Hgb Conc. 31.9 g/dL (33.0-37.0); Mean Corpuscular Volume 98.2 fL (81.0-99.0); Platelet Count 112 10^3/uL (130-400); Red Cell Dist. Width 15.6 % (11.5-14.5)
[2025-03-03 13:45] LABS: ALT (SGPT) 16 U/L (0-35); AST (SGOT) 20 U/L (14-36); Albumin 3.8 g/dl (3.5-5.0); Alkaline Phosphatase 62 U/L (38-126); Blood Urea Nitrogen 41 mg/dl (7-17); Calcium 9.6 mg/dl (8.4-10.2); Carbon Dioxide 23 mmol/L (22-30); Chloride 111 mmol/L (98-107); Glucose 87 mg/dl (70-99); Potassium 4.5 mmol/L (3.5-5.1); Sodium 139 mmol/L (135-145); Total Protein 5.7 g/dl (6.3-8.2); Uric Acid 7.4 mg/dl (2.5-6.2); eGFR 23.59
== END ==
LOC: OIDL 09:58
PROVIDERS: Nurse Practitioner Primary Care; ATTENDING PHYSICIAN Internal Medicine Hematology & Oncology; FAMILY PHYSICIAN Internal Medicine Geriatric Medicine
DX: C90.00 Multiple myeloma not having achieved remission (principal); D63.1 Anemia in chronic kidney disease; D63.0 Anemia in neoplastic disease
CPT/HCPCS: 36415; 80053; 84100; 84550; 85025

== ENCOUNTER → 2025-03-10 09:56 | Outpatient (REF) | payer OTHER, SELFPAY ==
[2025-03-10 10:06] LABS: Hematocrit 34.6 % (37.0-47.0); Hemoglobin 10.7 g/dL (12.0-16.0); Mean Corp Hgb Conc. 30.9 g/dL (33.0-37.0); Mean Corpuscular Volume 99.4 fL (81.0-99.0); Platelet Count 106 10^3/uL (130-400); Red Cell Dist. Width 15.2 % (11.5-14.5)
[2025-03-10 12:45] LABS: ALT (SGPT) 21 U/L (0-35); AST (SGOT) 24 U/L (14-36); Albumin 3.8 g/dl (3.5-5.0); Alkaline Phosphatase 69 U/L (38-126); Blood Urea Nitrogen 33 mg/dl (7-17); Calcium 9.7 mg/dl (8.4-10.2); Carbon Dioxide 23 mmol/L (22-30); Chloride 112 mmol/L (98-107); Glucose 89 mg/dl (70-99); Potassium 4.6 mmol/L (3.5-5.1); Sodium 140 mmol/L (135-145); Total Protein 5.7 g/dl (6.3-8.2); eGFR 26.60
[2025-03-10 13:20] LABS: Uric Acid 6.5 mg/dl (2.5-6.2)
== END ==
LOC: OIDL 09:56
PROVIDERS: ATTENDING PHYSICIAN Internal Medicine Hematology & Oncology; FAMILY PHYSICIAN Internal Medicine Geriatric Medicine
DX: C90.00 Multiple myeloma not having achieved remission (principal); D63.1 Anemia in chronic kidney disease; D63.0 Anemia in neoplastic disease
CPT/HCPCS: 36415; 80053; 84100; 84550; 85025

== ENCOUNTER → 2025-03-17 10:57 | Outpatient (REF) | payer OTHER, SELFPAY ==
[2025-03-17 11:15] LABS: Hematocrit 33.3 % (37.0-47.0); Hemoglobin 10.3 g/dL (12.0-16.0); Mean Corp Hgb Conc. 30.9 g/dL (33.0-37.0); Mean Corpuscular Volume 99.1 fL (81.0-99.0); Platelet Count 110 10^3/uL (130-400); Red Cell Dist. Width 14.7 % (11.5-14.5)
[2025-03-17 12:15] LABS: ALT (SGPT) 25 U/L (0-35); AST (SGOT) 26 U/L (14-36); Albumin 3.9 g/dl (3.5-5.0); Alkaline Phosphatase 73 U/L (38-126); Blood Urea Nitrogen 36 mg/dl (7-17); Carbon Dioxide 27 mmol/L (22-30); Chloride 110 mmol/L (98-107); Glucose 94 mg/dl (70-99); Iron 99 ug/dl (37-170); Total Protein 5.8 g/dl (6.3-8.2); Uric Acid 6.9 mg/dl (2.5-6.2); eGFR 23.44
[2025-03-17 12:26] LABS: Calcium 9.8 mg/dl (8.4-10.2); Potassium 5.0 mmol/L (3.5-5.1); Sodium 140 mmol/L (135-145)
[2025-03-17 12:27] LABS: Total Iron Binding Capacity 305 ug/dl (265-497)
[2025-03-17 13:10] LABS: Ferritin 160.0 ng/ml (11.1-264.0)
== END ==
LOC: OIDL 10:57
PROVIDERS: ATTENDING PHYSICIAN Internal Medicine Hematology & Oncology; FAMILY PHYSICIAN Internal Medicine Geriatric Medicine
DX: C90.00 Multiple myeloma not having achieved remission (principal); D63.1 Anemia in chronic kidney disease; D63.0 Anemia in neoplastic disease
CPT/HCPCS: 36415; 80053; 82232; 82728; 82784; 83521; 83540; 83550; 84100; 84155; 84165; 84550; 85025; 86334

== ENCOUNTER → 2025-03-24 10:11 | Outpatient (REF) | payer OTHER, SELFPAY ==
[2025-03-24 10:46] LABS: Hematocrit 33.0 % (37.0-47.0); Hemoglobin 10.4 g/dL (12.0-16.0); Mean Corp Hgb Conc. 31.5 g/dL (33.0-37.0); Mean Corpuscular Volume 98.2 fL (81.0-99.0); Platelet Count 130 10^3/uL (130-400); Red Cell Dist. Width 14.4 % (11.5-14.5)
[2025-03-24 12:08] LABS: ALT (SGPT) 23 U/L (0-35); AST (SGOT) 25 U/L (14-36); Albumin 3.8 g/dl (3.5-5.0); Alkaline Phosphatase 81 U/L (38-126); Blood Urea Nitrogen 29 mg/dl (7-17); Calcium 10.0 mg/dl (8.4-10.2); Carbon Dioxide 26 mmol/L (22-30); Chloride 112 mmol/L (98-107); Glucose 89 mg/dl (70-99); Potassium 5.1 mmol/L (3.5-5.1); Sodium 139 mmol/L (135-145); Total Protein 5.7 g/dl (6.3-8.2); Uric Acid 7.1 mg/dl (2.5-6.2); eGFR 24.93
== END ==
LOC: OIDL 10:11
PROVIDERS: Nurse Practitioner Primary Care; ATTENDING PHYSICIAN Internal Medicine Hematology & Oncology; FAMILY PHYSICIAN Internal Medicine Geriatric Medicine
DX: C90.00 Multiple myeloma not having achieved remission (principal); D63.1 Anemia in chronic kidney disease; D63.0 Anemia in neoplastic disease
CPT/HCPCS: 36415; 80053; 84100; 84550; 85025

== ENCOUNTER → 2025-03-31 10:13 | Outpatient (REF) | payer OTHER, SELFPAY ==
[2025-03-31 10:46] LABS: Hematocrit 33.6 % (37.0-47.0); Hemoglobin 10.7 g/dL (12.0-16.0); Mean Corp Hgb Conc. 31.8 g/dL (33.0-37.0); Mean Corpuscular Volume 98.0 fL (81.0-99.0); Platelet Count 104 10^3/uL (130-400); Red Cell Dist. Width 14.6 % (11.5-14.5)
[2025-03-31 12:40] LABS: ALT (SGPT) 19 U/L (0-35); AST (SGOT) 27 U/L (14-36); Albumin 3.8 g/dl (3.5-5.0); Alkaline Phosphatase 78 U/L (38-126); Blood Urea Nitrogen 33 mg/dl (7-17); Calcium 9.7 mg/dl (8.4-10.2); Carbon Dioxide 25 mmol/L (22-30); Chloride 110 mmol/L (98-107); Glucose 102 mg/dl (70-99); Potassium 5.2 mmol/L (3.5-5.1); Sodium 141 mmol/L (135-145); Total Protein 5.6 g/dl (6.3-8.2); eGFR 22.11
[2025-03-31 16:10] LABS: Uric Acid 7.3 mg/dl (2.5-6.2)
== END ==
LOC: OIDL 10:13
PROVIDERS: ATTENDING PHYSICIAN Internal Medicine Hematology & Oncology; FAMILY PHYSICIAN Internal Medicine Geriatric Medicine
DX: C90.00 Multiple myeloma not having achieved remission (principal); D63.1 Anemia in chronic kidney disease; D63.0 Anemia in neoplastic disease
CPT/HCPCS: 36415; 80053; 84100; 84550; 85025

== ENCOUNTER → 2025-04-07 10:20 | Outpatient (REF) | payer OTHER, SELFPAY ==
[2025-04-07 10:44] LABS: Hematocrit 34.0 % (37.0-47.0); Hemoglobin 10.7 g/dL (12.0-16.0); Mean Corp Hgb Conc. 31.5 g/dL (33.0-37.0); Mean Corpuscular Volume 97.7 fL (81.0-99.0); Platelet Count 114 10^3/uL (130-400); Red Cell Dist. Width 14.6 % (11.5-14.5)
[2025-04-07 11:29] LABS: ALT (SGPT) 21 U/L (0-35); AST (SGOT) 29 U/L (14-36); Albumin 3.7 g/dl (3.5-5.0); Alkaline Phosphatase 82 U/L (38-126); Blood Urea Nitrogen 37 mg/dl (7-17); Calcium 9.8 mg/dl (8.4-10.2); Carbon Dioxide 26 mmol/L (22-30); Chloride 110 mmol/L (98-107); Glucose 94 mg/dl (70-99); Potassium 4.7 mmol/L (3.5-5.1); Sodium 140 mmol/L (135-145); Total Protein 5.7 g/dl (6.3-8.2); Uric Acid 7.3 mg/dl (2.5-6.2); eGFR 24.93
== END ==
LOC: OIDL 10:20
PROVIDERS: Nurse Practitioner Primary Care; ATTENDING PHYSICIAN Internal Medicine Hematology & Oncology; FAMILY PHYSICIAN Internal Medicine Geriatric Medicine
DX: C90.00 Multiple myeloma not having achieved remission (principal); D63.1 Anemia in chronic kidney disease; D63.0 Anemia in neoplastic disease
CPT/HCPCS: 36415; 80053; 84100; 84550; 85025

== ENCOUNTER → 2025-04-14 09:41 | Outpatient (REF) | payer OTHER, SELFPAY ==
[2025-04-14 10:16] LABS: Hematocrit 33.9 % (37.0-47.0); Hemoglobin 10.6 g/dL (12.0-16.0); Mean Corp Hgb Conc. 31.3 g/dL (33.0-37.0); Mean Corpuscular Volume 98.0 fL (81.0-99.0); Nucleated Red Blood Cells % 0 %; Platelet Count 124 10^3/uL (130-400); Red Cell Dist. Width 14.6 % (11.5-14.5)
[2025-04-14 11:05] LABS: ALT (SGPT) 23 U/L (0-35); AST (SGOT) 31 U/L (14-36); Albumin 4.1 g/dl (3.5-5.0); Alkaline Phosphatase 89 U/L (38-126); Blood Urea Nitrogen 32 mg/dl (7-17); Calcium 10.2 mg/dl (8.4-10.2); Carbon Dioxide 25 mmol/L (22-30); Chloride 109 mmol/L (98-107); Glucose 99 mg/dl (70-99); Potassium 5.4 mmol/L (3.5-5.1); Sodium 138 mmol/L (135-145); Total Protein 6.1 g/dl (6.3-8.2); eGFR 23.44
== END ==
LOC: REG 09:41
PROVIDERS: ATTENDING PHYSICIAN Nurse Practitioner Acute Care; FAMILY PHYSICIAN Internal Medicine Geriatric Medicine
DX: C90.00 Multiple myeloma not having achieved remission (principal); D63.1 Anemia in chronic kidney disease; D63.0 Anemia in neoplastic disease
CPT/HCPCS: 36415; 80053; 85025

== ENCOUNTER → 2025-04-21 10:06 | Outpatient (REF) | payer OTHER, SELFPAY ==
[2025-04-21 11:45] LABS: Hematocrit 32.9 % (37.0-47.0); Hemoglobin 10.2 g/dL (12.0-16.0); Mean Corp Hgb Conc. 31.0 g/dL (33.0-37.0); Mean Corpuscular Volume 97.9 fL (81.0-99.0); Nucleated Red Blood Cells % 0 %; Platelet Count 143 10^3/uL (130-400); Red Cell Dist. Width 14.8 % (11.5-14.5)
[2025-04-21 12:18] LABS: ALT (SGPT) 40 U/L (0-35); AST (SGOT) 39 U/L (14-36); Albumin 3.7 g/dl (3.5-5.0); Alkaline Phosphatase 109 U/L (38-126); Blood Urea Nitrogen 43 mg/dl (7-17); Calcium 9.7 mg/dl (8.4-10.2); Carbon Dioxide 28 mmol/L (22-30); Chloride 107 mmol/L (98-107); Glucose 91 mg/dl (70-99); Potassium 5.4 mmol/L (3.5-5.1); Sodium 141 mmol/L (135-145); Total Protein 5.6 g/dl (6.3-8.2); eGFR 18.83
== END ==
LOC: REG 10:06
PROVIDERS: ATTENDING PHYSICIAN Nurse Practitioner Acute Care; FAMILY PHYSICIAN Internal Medicine Geriatric Medicine
DX: C90.00 Multiple myeloma not having achieved remission (principal); D63.1 Anemia in chronic kidney disease; D63.0 Anemia in neoplastic disease
CPT/HCPCS: 36415; 80053; 85025

== ENCOUNTER → 2025-04-28 10:17 | Outpatient (REF) | payer OTHER, SELFPAY ==
[2025-04-28 10:30] LABS: Hematocrit 34.2 % (37.0-47.0); Hemoglobin 10.8 g/dL (12.0-16.0); Mean Corp Hgb Conc. 31.6 g/dL (33.0-37.0); Mean Corpuscular Volume 98.3 fL (81.0-99.0); Platelet Count 152 10^3/uL (130-400); Red Cell Dist. Width 15.3 % (11.5-14.5)
[2025-04-28 11:40] LABS: ALT (SGPT) 39 U/L (0-35); AST (SGOT) 29 U/L (14-36); Albumin 3.7 g/dl (3.5-5.0); Alkaline Phosphatase 97 U/L (38-126); Blood Urea Nitrogen 42 mg/dl (7-17); Calcium 9.7 mg/dl (8.4-10.2); Carbon Dioxide 26 mmol/L (22-30); Chloride 109 mmol/L (98-107); Glucose 82 mg/dl (70-99); Potassium 4.8 mmol/L (3.5-5.1); Sodium 139 mmol/L (135-145); Total Protein 5.7 g/dl (6.3-8.2); Uric Acid 8.5 mg/dl (2.5-6.2); eGFR 26.60
[2025-05-01 00:02] LABS: Albumin 3.62 g/dL (3.75-5.01); Free Kappa Light Chains,Quant 15.30 mg/L (3.30-19.40); Free Lambda Light Chains,Quant 1370.86 mg/L (5.71-26.30); Immunofixation Electrophoresis IFE Done; Kappa/Lambda Fr Light Ratio 0.01 (0.26-1.65); Total Protein-Electrophoresis 5.4 g/dL (6.3-8.2)
== END ==
LOC: OIDL 10:17
PROVIDERS: ATTENDING PHYSICIAN Internal Medicine Hematology & Oncology; FAMILY PHYSICIAN Internal Medicine Geriatric Medicine
DX: C90.00 Multiple myeloma not having achieved remission (principal); D63.1 Anemia in chronic kidney disease; D63.0 Anemia in neoplastic disease
CPT/HCPCS: 36415; 80053; 82232; 82784; 83521; 84100; 84155; 84165; 84550; 85025; 86334

== ENCOUNTER → 2025-05-05 10:14 | Outpatient (REF) | payer OTHER, SELFPAY ==
[2025-05-05 10:35] LABS: Hematocrit 33.4 % (37.0-47.0); Hemoglobin 10.6 g/dL (12.0-16.0); Mean Corp Hgb Conc. 31.7 g/dL (33.0-37.0); Mean Corpuscular Volume 98.2 fL (81.0-99.0); Platelet Count 132 10^3/uL (130-400); Red Cell Dist. Width 15.4 % (11.5-14.5)
[2025-05-05 11:31] LABS: ALT (SGPT) 23 U/L (0-35); AST (SGOT) 35 U/L (14-36); Albumin 3.7 g/dl (3.5-5.0); Alkaline Phosphatase 92 U/L (38-126); Blood Urea Nitrogen 32 mg/dl (7-17); Calcium 10.3 mg/dl (8.4-10.2); Carbon Dioxide 26 mmol/L (22-30); Chloride 109 mmol/L (98-107); Glucose 96 mg/dl (70-99); Potassium 5.4 mmol/L (3.5-5.1); Sodium 139 mmol/L (135-145); Total Protein 5.7 g/dl (6.3-8.2); eGFR 28.49
[2025-05-05 12:20] LABS: Uric Acid 7.2 mg/dl (2.5-6.2)
== END ==
LOC: OIDL 10:14
PROVIDERS: ATTENDING PHYSICIAN Internal Medicine Hematology & Oncology; FAMILY PHYSICIAN Internal Medicine Geriatric Medicine
DX: C90.00 Multiple myeloma not having achieved remission (principal); D63.1 Anemia in chronic kidney disease; D63.0 Anemia in neoplastic disease
CPT/HCPCS: 36415; 80053; 84550; 85025

== ENCOUNTER → 2025-05-10 11:23 | Outpatient (REF) | payer OTHER, SELFPAY | LOC: RAD 11:23 | PROVIDERS: ATTENDING PHYSICIAN Nurse Practitioner Primary Care; FAMILY PHYSICIAN Internal Medicine Geriatric Medicine | DX: C90.00 Multiple myeloma not having achieved remission (principal); D63.1 Anemia in chronic kidney disease; D63.0 Anemia in neoplastic disease | CPT/HCPCS: 73502; 73552 ==

== ENCOUNTER → 2025-05-12 10:11 | Outpatient (REF) | payer OTHER, SELFPAY ==
[2025-05-12 10:25] LABS: Hematocrit 32.9 % (37.0-47.0); Hemoglobin 10.4 g/dL (12.0-16.0); Mean Corp Hgb Conc. 31.6 g/dL (33.0-37.0); Mean Corpuscular Volume 98.2 fL (81.0-99.0); Platelet Count 107 10^3/uL (130-400); Red Cell Dist. Width 15.4 % (11.5-14.5)
[2025-05-12 11:17] LABS: ALT (SGPT) 28 U/L (0-35); AST (SGOT) 37 U/L (14-36); Albumin 3.8 g/dl (3.5-5.0); Alkaline Phosphatase 114 U/L (38-126); Blood Urea Nitrogen 36 mg/dl (7-17); Calcium 10.2 mg/dl (8.4-10.2); Carbon Dioxide 25 mmol/L (22-30); Chloride 110 mmol/L (98-107); Glucose 77 mg/dl (70-99); Potassium 5.2 mmol/L (3.5-5.1); Sodium 140 mmol/L (135-145); Total Protein 6.0 g/dl (6.3-8.2); Uric Acid 7.4 mg/dl (2.5-6.2); eGFR 24.93
== END ==
LOC: OIDL 10:11
PROVIDERS: Internal Medicine Nephrology; ATTENDING PHYSICIAN Internal Medicine Hematology & Oncology; FAMILY PHYSICIAN Internal Medicine Geriatric Medicine
DX: C90.00 Multiple myeloma not having achieved remission (principal); D63.1 Anemia in chronic kidney disease; D63.0 Anemia in neoplastic disease
CPT/HCPCS: 36415; 80053; 82570; 83970; 84100; 84156; 84550; 85025

== ENCOUNTER → 2025-05-19 09:55 | Outpatient (REF) | payer OTHER, SELFPAY ==
[2025-05-19 10:06] LABS: Hematocrit 31.7 % (37.0-47.0); Hemoglobin 10.1 g/dL (12.0-16.0); Mean Corp Hgb Conc. 31.9 g/dL (33.0-37.0); Mean Corpuscular Volume 99.1 fL (81.0-99.0); Platelet Count 145 10^3/uL (130-400); Red Cell Dist. Width 15.3 % (11.5-14.5)
[2025-05-19 10:56] LABS: ALT (SGPT) 35 U/L (0-35); AST (SGOT) 44 U/L (14-36); Albumin 3.7 g/dl (3.5-5.0); Alkaline Phosphatase 121 U/L (38-126); Blood Urea Nitrogen 35 mg/dl (7-17); Calcium 10.4 mg/dl (8.4-10.2); Carbon Dioxide 26 mmol/L (22-30); Chloride 109 mmol/L (98-107); Glucose 86 mg/dl (70-99); Potassium 4.9 mmol/L (3.5-5.1); Sodium 139 mmol/L (135-145); Total Protein 5.8 g/dl (6.3-8.2); Uric Acid 8.0 mg/dl (2.5-6.2); eGFR 23.44
== END ==
LOC: OIDL 09:55
PROVIDERS: ATTENDING PHYSICIAN Internal Medicine Hematology & Oncology; FAMILY PHYSICIAN Internal Medicine Geriatric Medicine
DX: C90.00 Multiple myeloma not having achieved remission (principal); D63.1 Anemia in chronic kidney disease; D63.0 Anemia in neoplastic disease
CPT/HCPCS: 36415; 80053; 84100; 84443; 84550; 85025

== ENCOUNTER → 2025-05-28 13:55 | Outpatient (REF) | payer OTHER, SELFPAY ==
[2025-05-28 16:18] LABS: Hematocrit 32.4 % (37.0-47.0); Hemoglobin 10.2 g/dL (12.0-16.0); Mean Corp Hgb Conc. 31.5 g/dL (33.0-37.0); Mean Corpuscular Volume 100.6 fL (81.0-99.0); Nucleated Red Blood Cells % 0 %; Platelet Count 160 10^3/uL (130-400); Red Cell Dist. Width 15.1 % (11.5-14.5)
== END ==
LOC: REG 13:55
PROVIDERS: ATTENDING PHYSICIAN Dentist Oral and Maxillofacial Surgery; FAMILY PHYSICIAN Internal Medicine Geriatric Medicine; REFERRING PHYSICIAN Internal Medicine Hematology & Oncology
DX: Z01.818 Encounter for other preprocedural examination (principal)
CPT/HCPCS: 36415; 85025

== ENCOUNTER → 2025-06-02 10:13 | Outpatient (REF) | payer OTHER, SELFPAY ==
[2025-06-02 10:28] LABS: Hematocrit 31.4 % (37.0-47.0); Hemoglobin 10.0 g/dL (12.0-16.0); Mean Corp Hgb Conc. 31.8 g/dL (33.0-37.0); Mean Corpuscular Volume 98.7 fL (81.0-99.0); Platelet Count 171 10^3/uL (130-400); Red Cell Dist. Width 14.6 % (11.5-14.5)
[2025-06-02 11:23] LABS: ALT (SGPT) 35 U/L (0-35); AST (SGOT) 44 U/L (14-36); Albumin 3.8 g/dl (3.5-5.0); Alkaline Phosphatase 173 U/L (38-126); Blood Urea Nitrogen 33 mg/dl (7-17); Calcium 10.1 mg/dl (8.4-10.2); Carbon Dioxide 25 mmol/L (22-30); Chloride 110 mmol/L (98-107); Glucose 105 mg/dl (70-99); Potassium 4.5 mmol/L (3.5-5.1); Sodium 140 mmol/L (135-145); Total Protein 6.0 g/dl (6.3-8.2); Uric Acid 9.0 mg/dl (2.5-6.2); eGFR 19.82
== END ==
LOC: OIDL 10:13
PROVIDERS: ATTENDING PHYSICIAN Internal Medicine Hematology & Oncology; FAMILY PHYSICIAN Internal Medicine Geriatric Medicine
DX: C90.00 Multiple myeloma not having achieved remission (principal); D63.1 Anemia in chronic kidney disease; D63.0 Anemia in neoplastic disease
CPT/HCPCS: 36415; 80053; 84100; 84550; 85025

== ENCOUNTER 2025-06-09 16:37 | Inpatient (IN) | payer OTHER, SELFPAY ==
[2025-06-09 14:25] VITALS: BP 149/68
[2025-06-09 15:14] VITALS: BMI 21.0
[2025-06-09 15:15] VITALS: BP 165/71
--- NOTE | 2025-06-09 15:29 | ED.GENMED ---
History of Present Illness
<Humaira Malin, FENCE ERECTOR - Last Filed: 06/09/25 19:42>
General
Chief Complaint: Abnormal Lab Value
Source: patient
Exam Limitations: none
Time Seen by Provider: 06/09/25 15:26
Nursing documentation reviewed up to this point in time: agreed with
History of Present Illness
History of Present Illness:
89-year-old female with history of HTN, hypothyroid, iron deficiency anemia, restrictive lung disease, CKD stage IV multiple myeloma presents for abnormal kidney function on lab work done at [facility] where she goes for serial labs during her
chemotherapy for her Multiple Myeloma.
Patient denies chest pain or shortness of breath. Denies abdominal pain.
Past History
<Humaira Malin, FENCE ERECTOR - Last Filed: 06/09/25 19:42>
Past History
ED Past Medical History: Asthma, Cancer (Multiple myeloma undergoing chemotherapy), Hypothyroidism and Other (Low platelets, hypothyroidism)
ED Past Surgical History: Appendectomy
Social History
Tobacco: Non-smoker
Alcohol: Occasional
Drug: None
Personal:
Living: with family
Employment: Retired
Family History
Family History: Other (Father with cirrhosis)
Review of Systems
<Humaira Malin, FENCE ERECTOR - Last Filed: 06/09/25 19:42>
Review of Systems
Allergies reviewed?: Yes
All Other Systems: ROS reviewed and negative except as documented in HPI and ROS
ABD/GI: Reports diarrhea (Started 3 days ago, it is improving and she has had none today.)
Phy Exam
<Humaira Malin, FENCE ERECTOR - Last Filed: 06/09/25 19:42>
Physical Exam
Physical Exam:
GENERAL: No acute distress. A&Ox3.
CONSTITUTIONAL: Afebrile.
EYES: clear, conjunctivae normal
ENMT: moist mucus membranes, Pharynx nl
RESPIRATORY: Regular respirations, nonlabored, lungs clear.
CARDIOVASCULAR: Regular rate and rhythm, + murmur, no rubs.
GI: Soft, nontender, normal BS
MUSCULOSKELETAL: Moves with ease. Well perfused.
SKIN: Warm, dry, pale
PSYCH: Normal mood and affect. Well kept, interactive and appropriate
NEUROLOGIC: Awake, alert and oriented. No focal neurological deficits
Course
<Humaira Malin, FENCE ERECTOR - Last Filed: 06/09/25 19:42>
Orders/Labs/Results
Orders:
Orders
06/09/25 16:06
Admit/Transfer Patient As Directed
Co-Sign Provider:
Level of Care: Inpatient admission
Assign to:: Medical/Surgical
Physician / Group: talia brown
Diagnosis: brianna
Reason for Hospitalization: brianna
Expected length of stay greater than two midnights?: Yes
ELOS- Estimated Length of Stay in days: 2
I certify the patient meets the requirements for IP care: Yes
06/09/25 16:07
PRN Pain Medication Management As Directed
May give lesser potent ordered pain med per pt: Yes
preference::
Protocol:: Medication orders for pain may be administered in a
manner that supports deferring to patient preference
when the pt is:
- Requesting an ordered lesser potent pain medication.
Least to most potent pain medications are defined
as: acetaminophen < NSAID < tramadol < opioids
(morphine, oxycodone, hydromorphone).
- Requesting a lesser dose of the same medication IF
ORDERED.
- Requesting a less intrusive route of administration
if both routes are prescribed by the provider (PO <
IV).
06/09/25 16:08
Code Status As Directed
Resuscitation Status: Full Code
06/09/25 16:13
Bladder Scan As Directed
Follow Bladder Retention/Intermittent Cath Algorithm?: Yes
PRN if no void in __ hours: 6
Frequency: Per Retention Algorithm
If Bladder Scan Result >: 400
then:: Straight cath
Renal & Bladder US [US Renal With Bladder] Routine
Comment:
Reason For Exam: brianna on ckd
06/09/25 16:14
NEPHROLOGY CONSULT Routine
Consulting Provider: Jami Last
Was physician already notified: Yes
Straight Cath As Directed
Frequency: Per Retention Algorithm
Additional Instructions: straight cath as needed per acute urinary retention algorithm for 24 hrs
Additional Instructions: for bladder scan greater than 400 mL
06/09/25 16:31
Osmolality, Random Urine Stat
Date Specimen was Collected: 06/09/25
Time Specimen was Collected: 16:30
Urinalysis Routine
Date Specimen was Collected: 06/09/25
Time Specimen was Collected: 16:30
Urine Creatinine Stat
Date Specimen was Collected: 06/09/25
Time Specimen was Collected: 16:30
Urine Microscopic Routine
Date Specimen was Collected: 06/09/25
Time Specimen was Collected: 16:30
Urine Protein Stat
Date Specimen was Collected: 06/09/25
Time Specimen was Collected: 16:30
Urine Protein/Creat Ratio (Random) [Protein/Creat Ratio (Random)] Stat
Date Specimen was Collected: 06/09/25
Time Specimen was Collected: 16:30
Urine Sodium Stat
Date Specimen was Collected: 06/09/25
Time Specimen was Collected: 16:30
Ipratropium/Albuterol Sulfate [Duoneb] 3 ml INH R NOW STA
06/09/25 17:00
0.45% Sodium Chloride 1000 ml [0.45%NaCl] 1,000 ml IV 80 mls/hr
06/09/25 18:01
Bisacodyl [Dulcolax] 10 mg RECTAL [id number] PRN
Docusate W/Senna [Senokot-S] 1 tablet PO BIDPRN PRN
Meclizine [Antivert] 12.5 mg PO PRN PRN positional vertigo
Polyethylene Glycol Powder [Miralax] 17 grams PO DAILYPRN PRN
dextromethorphan-guaifenesin [Mucinex DM] 1 tablet PO Q12H
06/09/25 18:01
Complete Blood Count/No Diff Routine
Magnesium Routine
Activity As Directed
Activity Level: As Tolerated
Intake/ Output As Directed
Frequency: Per unit guidelines
Vital Signs As Directed
Frequency: Per unit guidelines
Weight As Directed
Frequency: Daily
DX Deep Vein Thrombosis Video Routine
06/09/25 20:00
Budesonide [Pulmicort] 0.5 mg INH R BID
Heparin 5,000 units SC Q12
Sodium Bicarbonate 650 mg PO BID
06/09/25 22:00
Albuterol Nebs [Ventolin Nebules] 2.5 mg INH R TID
06/10/25 Breakfast
Regular
At Your Request: Limited Participation
Basic Metabolic Panel IN AM
06/10/25 08:00
NIFEdipine EXTENDED RELEASE [Procardia Xl (Extended Release)] 30 mg PO DAILY
Singulair 10 mg PO DAILY
levothyroxine 50 mcg PO DAILY
06/11/25 06:00
Basic Metabolic Panel IN AM
06/12/25 06:00
Basic Metabolic Panel IN AM
06/13/25 06:00
Basic Metabolic Panel IN AM
06/14/25 06:00
Basic Metabolic Panel IN AM
06/15/25 06:00
Basic Metabolic Panel IN AM
06/16/25 06:00
Basic Metabolic Panel IN AM
06/17/25 06:00
Basic Metabolic Panel IN AM
Abnormal Lab Results
06/09/25
16:31
Urine Occult Blood 2+ A
(Negative)
Ur Leukocyte Esterase 1+ A
(Negative)
Urine RBC 7-10 A /HPF
(0-2)
Urine WBC 11-15 A /HPF
(0-5)
Urine Bacteria Moderate A
(Negative)
Urine Osmolality 260 L mOsm/kg
(300-900)
Urine Total Protein 138 H mg/dl
(0-12)
Urine Albumin 3+ A
(Neg - Trace)
Vital Signs
Initial and Last Documented VS:
Initial Vital Signs
Temp Pulse Resp BP Pulse Ox
98.4 F 89 16 149/68 98
06/09/25 14:25 06/09/25 14:25 06/09/25 14:25 06/09/25 14:25 06/09/25 14:25
Last Documented Vital Signs
Temp Pulse Resp BP Pulse Ox
99.3 F 94 16 147/79 95
06/09/25 19:14 06/09/25 19:14 06/09/25 19:14 06/09/25 19:14 06/09/25 19:14
Fuel Storage Technician consulted with Physician
Fuel Storage Technician consulted with physician?: Yes
Name of Physician Consulted: Amilcar
<Johanna Fitzgerald, DO - Last Filed: 06/09/25 16:39>
Orders/Labs/Results
Orders:
Orders
06/09/25 16:06
Admit/Transfer Patient As Directed
Co-Sign Provider:
Level of Care: Inpatient admission
Assign to:: Medical/Surgical
Physician / Group: talia brown
Diagnosis: brianna
Reason for Hospitalization: brianna
Expected length of stay greater than two midnights?: Yes
ELOS- Estimated Length of Stay in days: 2
I certify the patient meets the requirements for IP care: Yes
06/09/25 16:07
PRN Pain Medication Management As Directed
May give lesser potent ordered pain med per pt: Yes
preference::
Protocol:: Medication orders for pain may be administered in a
manner that supports deferring to patient preference
when the pt is:
- Requesting an ordered lesser potent pain medication.
Least to most potent pain medications are defined
as: acetaminophen < NSAID < tramadol < opioids
(morphine, oxycodone, hydromorphone).
- Requesting a lesser dose of the same medication IF
ORDERED.
- Requesting a less intrusive route of administration
if both routes are prescribed by the provider (PO <
IV).
06/09/25 16:08
Code Status As Directed
Resuscitation Status: Full Code
06/09/25 16:13
Bladder Scan As Directed
Follow Bladder Retention/Intermittent Cath Algorithm?: Yes
PRN if no void in __ hours: 6
Frequency: Per Retention Algorithm
If Bladder Scan Result >: 400
then:: Straight cath
Renal & Bladder US [US Renal With Bladder] Routine
Comment:
Reason For Exam: brianna on ckd
06/09/25 16:14
NEPHROLOGY CONSULT Routine
Consulting Provider: Jami Last
Was physician already notified: Yes
Straight Cath As Directed
Frequency: Per Retention Algorithm
Additional Instructions: straight cath as needed per acute urinary retention algorithm for 24 hrs
Additional Instructions: for bladder scan greater than 400 mL
06/09/25 16:31
Osmolality, Random Urine Stat
Date Specimen was Collected: 06/09/25
Time Specimen was Collected: 16:30
Urinalysis Routine
Date Specimen was Collected: 06/09/25
Time Specimen was Collected: 16:30
Urine Creatinine Stat
Date Specimen was Collected: 06/09/25
Time Specimen was Collected: 16:30
Urine Microscopic Routine
Date Specimen was Collected: 06/09/25
Time Specimen was Collected: 16:30
Urine Protein Stat
Date Specimen was Collected: 06/09/25
Time Specimen was Collected: 16:30
Urine Protein/Creat Ratio (Random) [Protein/Creat Ratio (Random)] Stat
Date Specimen was Collected: 06/09/25
Time Specimen was Collected: 16:30
Urine Sodium Stat
Date Specimen was Collected: 06/09/25
Time Specimen was Collected: 16:30
Ipratropium/Albuterol Sulfate [Duoneb] 3 ml INH R NOW STA
06/09/25 17:00
0.45% Sodium Chloride 1000 ml [0.45%NaCl] 1,000 ml IV 80 mls/hr
06/09/25 18:01
Bisacodyl [Dulcolax] 10 mg RECTAL [id number] PRN
Docusate W/Senna [Senokot-S] 1 tablet PO BIDPRN PRN
Meclizine [Antivert] 12.5 mg PO PRN PRN positional vertigo
Polyethylene Glycol Powder [Miralax] 17 grams PO DAILYPRN PRN
dextromethorphan-guaifenesin [Mucinex DM] 1 tablet PO Q12H
06/09/25 18:01
Complete Blood Count/No Diff Routine
Magnesium Routine
Activity As Directed
Activity Level: As Tolerated
Intake/ Output As Directed
Frequency: Per unit guidelines
Vital Signs As Directed
Frequency: Per unit guidelines
Weight As Directed
Frequency: Daily
DX Deep Vein Thrombosis Video Routine
06/09/25 20:00
Budesonide [Pulmicort] 0.5 mg INH R BID
Heparin 5,000 units SC Q12
Sodium Bicarbonate 650 mg PO BID
06/09/25 22:00
Albuterol Nebs [Ventolin Nebules] 2.5 mg INH R TID
06/10/25 Breakfast
Regular
At Your Request: Limited Participation
Basic Metabolic Panel IN AM
06/10/25 08:00
NIFEdipine EXTENDED RELEASE [Procardia Xl (Extended Release)] 30 mg PO DAILY
Singulair 10 mg PO DAILY
levothyroxine 50 mcg PO DAILY
06/11/25 06:00
Basic Metabolic Panel IN AM
06/12/25 06:00
Basic Metabolic Panel IN AM
06/13/25 06:00
Basic Metabolic Panel IN AM
06/14/25 06:00
Basic Metabolic Panel IN AM
06/15/25 06:00
Basic Metabolic Panel IN AM
06/16/25 06:00
Basic Metabolic Panel IN AM
06/17/25 06:00
Basic Metabolic Panel IN AM
Abnormal Lab Results
06/09/25
16:31
Urine Occult Blood 2+ A
(Negative)
Ur Leukocyte Esterase 1+ A
(Negative)
Urine RBC 7-10 A /HPF
(0-2)
Urine WBC 11-15 A /HPF
(0-5)
Urine Bacteria Moderate A
(Negative)
Urine Osmolality 260 L mOsm/kg
(300-900)
Urine Total Protein 138 H mg/dl
(0-12)
Urine Albumin 3+ A
(Neg - Trace)
Vital Signs
Initial and Last Documented VS:
Initial Vital Signs
Temp Pulse Resp BP Pulse Ox
98.4 F 89 16 149/68 98
06/09/25 14:25 06/09/25 14:25 06/09/25 14:25 06/09/25 14:25 06/09/25 14:25
Last Documented Vital Signs
Temp Pulse Resp BP Pulse Ox
99.3 F 94 16 147/79 95
06/09/25 19:14 06/09/25 19:14 06/09/25 19:14 06/09/25 19:14 06/09/25 19:14
<Humaira Malin FENCE ERECTOR - Last Filed: 06/09/25 19:42>
MDM/Problems Addressed
Differential Diagnosis Includes:
Acute on chronic kidney failure
MDM/Problems Addressed:
89-year-old female with history of HTN, hypothyroid, iron deficiency anemia, restrictive lung disease, CKD stage IV multiple myeloma, chronic positional vertigo, presents for abnormal kidney function on lab work done at [facility] this a[facility] where she goes
for serial labs during her chemotherapy for her Multiple Myeloma.
Patient denies chest pain or shortness of breath. Denies abdominal pain.
Afebrile, NAD
Lab work from 1030 this morning reviewed:
CBC: No clinically significant abnormality, consistent with her baseline
Consistent with her baseline anemia CMP bicarb 19, BUN/creat 60/4.8 up from 06/02 when it was 33/2.3
Chronic conditions affecting care: Immunosuppressed (Receiving chemotherapy), Kidney disease and Cancer (Multiple myeloma)
<Humaira Malin, FENCE ERECTOR - Last Filed: 06/09/25 19:42>
*Pulse Oximetry
SaO2: 98
Oxygen Mode of Delivery: Room air
Patient hypoxic: no
*Critical Care Note
Total Time (30-74mins, 75-104mins- exclusive of procedures): Not Applicable
<Humaira Malin, FENCE ERECTOR - Last Filed: 06/09/25 19:42>
Patient Management
Social determinants of health affecting care: Strong social support
ED Attending Note
<Humaira Malin, FENCE ERECTOR - Last Filed: 06/09/25 19:42>
-
Portions of this chart may have been created with voice recognition software.� Occasional wrong word or��sound alike� substitutions may have occurred due to the inherent limitations of voice recognition software.
<Johanna Fitzgerald DO - Last Filed: 06/09/25 16:39>
ED Attending Note
Patient seen and examined by attending physician: Yes
I performed the substantive portion of visit, reviewed & personally made and approve the management plan that is documented in note by myself or JESUS.: Yes
I performed a history and physical exam of patient and discussed management with resident, I reviewed resident's note and agree with documented findings and plan of care.: Yes
ED Attending Note:
89-year-old female with history of multiple myeloma on chemotherapy presenting to the emergency department for concern of acute kidney injury. Patient had chemotherapy about 2-1/2 weeks ago. Family notes that she has been overall doing well,
tolerating chemotherapy, however has had decreased p.o. intake. She had routine labs obtained today, which is her typical day for her labs, which showed a creatinine of 4.8, which is acutely changed from 06/02. Patient herself denies any chest
pain, difficulty breathing, recent fever, abdominal pain. She does note dizziness, however has chronic vertigo, which is consistent with her vertigo.
Vital signs on arrival are normal. On exam, patient is in no acute distress. Unremarkable cardiac, pulmonary, abdominal exam. Labs reviewed from this morning, again significant BRIANNA with suspicion for acute dehydration from lack of oral intake,
prerenal. Patient to be started on IV fluids with plan for admission for continued oncology consultation as well as nephrology. Patient otherwise hemodynamically stable
Discharge Plan
Departure
Patient Disposition: Admit
Date of Disposition: 06/09/25
Time of Disposition: 15:46
Admit to: Med/Surg
Presentation/result/management discussed w/ accepting MD/DO: Hospitalist
Condition: Fair
Discharge Problem:
Acute on chronic renal failure, Multiple myeloma
Interventions
Interventions:
*Risk Screen - Suicide Last Done: 06/09/25 18:31
*General Assessment Last Done: 06/09/25 14:25
*Neglect/Abuse Screening Last Done: 06/09/25 14:25
*ED- Fall Risk Assessment Last Done: 06/09/25 14:25
*ED COVID-19 Vaccine History Last Done: 06/09/25 18:31
*ED Influenza Vaccine History Last Done: 06/09/25 14:25
*Nursing Disposition Last Done: 06/09/25 18:00
Discharge Date and Time
Discharge Date/Time: 06/09/25 18:00
[2025-06-09 16:00] VITALS: BP 156/71
--- NOTE | 2025-06-09 16:16 | HPS.HSE ---
Family Physician
-
Family Physician: Krystian Campos
Chief Complaint
-
abnormal labs
History of Present Illness
89 female history of hypertension hypothyroidism iron deficiency restrictive lung disease CKD stage IV, multiple myeloma presenting for abnormal kidney function from [facility]. States that she has not been eating or drinking well for the last
several weeks. Had diarrhea over the weekend. Has not been able to have chemotherapy over the last 3 weeks because she has a tooth that needs to be extracted however this is not causing her to have poor p.o. intake. She states that is just lack
of appetite. States that she is urinating well with a normal amount. Having bowel movements. Has not recently used NSAIDs Advil Aleve Motrin. Has been using Tylenol for recent facial surgery
In the ED: No repeat labs were obtained. No IV fluids were provided. However is hemodynamically stable.
Medical History
Past Medical History
Past Medical History: Reports Cancer and HTN
Past Surgical History: Reports Other (facial)
Social History
Alcohol: None
Drug: None
Family History
Family History: Not pertinent
Allergies / Home Medications
Allergies reflects when Allergies were last updated in [employer].
Home Medications with original date entered in [employer]
Allergy/Medication List:
Allergies
Allergy/AdvReac Type Severity Reaction Status Date / Time
promethazine Allergy Vomiting Verified 06/09/25 14:29
Home Medications
albuterol sulfate 2.5 mg/3 mL (0.083 %) solution for nebulization 2.5 mg inhalation TID shortness of breath/cough 07/19/23
dextromethorphan-guaifenesin 30 mg-600 mg tablet extended [id number] hr (Mucinex DM) 1 tab PO Q12H Congestion 07/19/23
levothyroxine 50 mcg capsule 50 mcg PO DAILY Thyroid 07/19/23
meclizine 12.5 mg tablet 12.5 mg PO PRN PRN positional vertigo 07/19/23
nifedipine 30 mg tablet,extended release 30 mg PO DAILY Blood pressure #30 tabs 07/29/23
Singulair 10 mg PO DAILY Allergies 11/10/24
budesonide 0.5 mg/2 mL suspension for nebulization 0.5 mg inhalation BID SOB/cough 11/10/24
cefdinir 300 mg capsule 300 mg PO BID #6 caps 11/17/24
doxycycline hyclate 100 mg capsule 100 mg PO Q12 #6 caps 11/17/24
sodium bicarbonate 650 mg tablet 650 mg PO BID #20 tabs 11/17/24
Review of Systems
-
A 12 point ROS was completed and negative except as noted: Yes
Physical Exam
Vital Signs
Vital Signs
Temp Pulse Resp BP Pulse Ox
98.4 F 89 16 149/68 98
06/09/25 14:25 06/09/25 14:25 06/09/25 14:25 06/09/25 14:25 06/09/25 15:33
Physical Exam
General: No Apparent Distress and Comfortable
Laboratory Results
-
Sodium 137
Potassium 4.9
Chloride 107
Carbon dioxide 19
BUN 60
Creatinine 4.8
GFR 8.2
Glucose 95
Uric acid 9.8
Calcium 9.4
Phosphorus 5.1
Total bili 0.8
AST 46
ALT 42
ALP 235
Total protein 6.0
Albumin 3.7
WBC 10.5
RBC 3.0
Hemoglobin 9.6
Hematocrit 29.8
MCV 98.3
MCH 31.7
MCHC 32.2
RDW 14.6
Platelet count 155
Impression/Plan
-
NAD, comfortable in bed, poor skin turgor,
Scleral Anicteric
DMM
No JVD
CTABL
RRR, S1/S2
Soft, NT, ND, BS+
Wearing compression stocking
Warm, Dry
AAOx3
Calm
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
Likely prerenal etiology
Will start by giving her 0.45 NS at a rate of 80cc/hr
Regular diet
Avoid nephrotoxins
Avoid hypotension
Renal bladder ultrasound
Bladder scan
Urine studies with sodium creat awesome protein creat ratio
Nephrology consult
MM
Ouptatient onc follow up
Restrictive lung disease
Continue home breathing therapies
HTN
Continue antihypertesnive
Hypothyroid
Conitnue levothyroxine
Vertigo
Continue prn meclizine
DVT ppx
HSQ
Full Code
--- NOTE | 2025-06-09 16:38 | W.CON.NEPH ---
Addendum entered and electronically signed by Jami Last MD 06/10/25 13:48:
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
Original Note:
Consultation
-
Date/Time Consultation Requested: 06/09/25 1615
Date/Time Consultation Performed: 06/09/25 1700
Requesting Provider: Tristin Lazo
Performing Provider: Jami Stephen
Reason for Consultation: Sudeep with CKD
Medical History
-
Chief Complaint: SUDEEP with CKD
History of Present Illness:
Pt is an 89yo with history of stage III colon CA with right hemicolectomy 2022 and declined chemotherapy, asthma, restrictive lung disease on montelukast, budesonide, HTN on a monotherapy regimen nifedipine, hypothyroidism on levothyroxine,
thrombocytopenia, CKD 3 baseline cr at 2 from MM diagnosed in October on chemo with velcade with Dexa, on acyclovir, SHPTH on calictriol She was sent to the emergency room because of blood work with elevated cr 4.8. Reportedly she has not been eating
or drinking well for the last several weeks. Had diarrhea over the weekend. Has not been able to have chemotherapy over the last 3 weeks. She underwent tooth that needs to be extracted over week ago however this is not causing her to have poor
p.o. intake. She states that is just lack of appetite. States that she is urinating well with a normal amount. Has been using Tylenol for recent facial surg. Nephrology asked to eval for SUDEEP. Reports no fever, cough cp or sob. No dysuria. No abd
pain or n/v. No sick contacts.
Past Medical History
Multiple myeloma, CKD4, SHPTH, Stage III Colorectal cancer s/p right hemicolectomy 2022 w/o adjuvant chemo due to age, allergic asthma, hypertension, hypothyroidism, positional vertigo secondary to ICH from fall in 2022
Past Surgical History: Other (Appendectomy in 1940, ovarian cyst removal and lysis of adhesions in 195, right breast lumpectomy, left cataract with lens implant, carpal tunnel surgery right hand 2021, right hemicolectomy 2022)
Social History
Tobacco: Non-Smoker
Alcohol: None
Family History
Family History: Not Pertinent
Allergies / Home Medications
Allergy/AdvReac Type Severity Reaction Status Date / Time
promethazine Allergy Vomiting Verified 06/09/25 14:29
�Medication �Instructions �Recorded �Confirmed �Type
albuterol sulfate 2.5 mg/3 mL 2.5 mg inhalation QID shortness of 07/19/23 06/09/25 History
(0.083 %) solution for nebulization breath/cough
levothyroxine 50 mcg capsule 50 mcg PO DAILY Thyroid 07/19/23 06/09/25 History
nifedipine 30 mg tablet,extended 30 mg PO DAILY Blood pressure #30 07/29/23 06/09/25 Rx
release tabs
budesonide 0.5 mg/2 mL suspension 0.5 mg inhalation BID SOB/cough 11/10/24 06/09/25 History
for nebulization
acyclovir 200 mg capsule 200 mg PO BID 06/09/25 06/09/25 History
allopurinol 100 mg tablet 100 mg PO DAILY 06/09/25 06/09/25 History
calcitriol 0.5 mcg capsule 0.5 mcg PO DAILY 06/09/25 06/09/25 History
montelukast 10 mg tablet 10 mg PO DAILY 06/09/25 06/09/25 History
Review of Systems
-
All other systems: Negative unless noted
Physical Exam
Vital Signs
Vital Signs
Temp Pulse Resp BP Pulse Ox
98.4 F 89 16 149/68 98
06/09/25 14:25 06/09/25 14:25 06/09/25 14:25 06/09/25 14:25 06/09/25 15:33
Lab Results
Abnormal Lab Results
06/09/25
16:31
Urine Occult Blood 2+ A
Ur Leukocyte Esterase 1+ A
Urine RBC 7-10 A
Urine WBC 11-15 A
Urine Bacteria Moderate A
Urine Osmolality 260 L
Urine Total Protein 138 H
Urine Albumin 3+ A
Physical Exam
General: Awake, Alert, Oriented, AOx3 and No Distress
HEENT: EOMI, Anicteric, Conjunctivae Clear, Facial Symmetry and No JVD
Respiratory: Clear, Normal Excursion and Nonlabored Respirations
Cardiac: S1/S2, Regular Rate/Rhythm and Murmur
Breast: Deferred by me
Abdomen: Soft, Nontender and Nondistended
Musculoskeletal: No Cyanosis and No Edema
Skin: No Rash
Neuro: Nonfocal/Grossly Intact
Psych: Mood/afflect pleasant, Insight/judgement good and Appropriate
Data Reviewed
-
Labs: Labs Reviewed by me, Discussed with Nurse, Discussed with Patient and Discussed with Family
Assessment/Plan
-
Assessment
SUDEEP on CKD stage IV b aseline cr 2
MM -velcade, steroid
Restrictive lung disease
HTN
Hypothyroid
Vertigo
History of colon cancer right hemicolectomy
Recent tooth extraction
elevated LFTs
Plan
A/w abnormal labs out pt with cr 4.8 from baseline 2
SUDEEP-likely prerenal based on history
check UA and Fena, follow bladder scan
if cr remains high check renal US tomorrow
cotn IVF per primary and encourage po intake
BP stable, ok to resume home meds
follow labs
d/w pt and family
no emergent indication of HD
[2025-06-09] MEDS: 0.45%NACL 1000 IV (16:43)
[2025-06-09] MEDS: DUONEB 3 ML INH (16:44)
[2025-06-09 16:55] LABS: Urine Character Slightly Cloudy (Clear)
[2025-06-09 17:00] VITALS: BP 167/84
--- NOTE | 2025-06-09 18:30 | PTCARENOTE ---
Pt transferred to 4W. Pt able to walk with assist to bathroom, then to chair. Pt does c/o dizziness (hx of vertigo per pt). Pt AAOx3, no c/o pain, safety measures in place, chair and bed alarm plugged in, call boothe within reach.
[2025-06-09 19:14] VITALS: BP 147/79; BMI 19.8
[2025-06-09] MEDS: VENTOLIN NEBULES 2.5 MG INH (20:06)
[2025-06-09] MEDS: PULMICORT 0.5 MG INH (20:06)
[2025-06-09] MEDS: HEPARIN SC (20:26)
[2025-06-09] MEDS: SODIUM BICARBONATE 650 MG PO (20:27)
[2025-06-09 21:21] LABS: Hematocrit 28.0 % (37.0-47.0); Hemoglobin 8.9 g/dL (12.0-16.0); Mean Corp Hgb Conc. 31.8 g/dL (33.0-37.0); Mean Corpuscular Volume 97.9 fL (81.0-99.0); Platelet Count 139 10^3/uL (130-400); Red Cell Dist. Width 14.8 % (11.5-14.5)
[2025-06-09 21:35] LABS: Magnesium 2.1 mg/dl (1.6-2.3)
[2025-06-09 23:41] VITALS: BP 157/70
[2025-06-10] MEDS: SYNTHROID 50 MCG PO (04:00)
[2025-06-10] MEDS: 0.45%NACL 1000 IV ×2 (05:04→17:29)
[2025-06-10 05:57] VITALS: BMI 19.8
[2025-06-10 07:10] VITALS: BP 158/94
[2025-06-10] MEDS: VENTOLIN NEBULES 2.5 MG INH ×3 (07:25→19:12)
[2025-06-10] MEDS: PULMICORT 0.5 MG INH ×2 (07:25→19:12)
[2025-06-10] MEDS: SINGULAIR 10 MG PO (08:53)
[2025-06-10] MEDS: HEPARIN 5000 UNITS SC ×2 (08:53→20:10)
[2025-06-10] MEDS: MUCINEX 600 MG PO ×2 (08:53→20:11)
[2025-06-10] MEDS: PROCARDIA XL (EXTENDED RELEASE) 30 MG PO (08:53)
[2025-06-10] MEDS: SODIUM BICARBONATE 650 MG PO ×2 (08:53→20:11)
[2025-06-10 09:16] LABS: Blood Urea Nitrogen 59 mg/dl (7-17); Calcium 9.1 mg/dl (8.4-10.2); Carbon Dioxide 19 mmol/L (22-30); Chloride 109 mmol/L (98-107); Estimated Creatinine Clearance 6 ml/min; Glucose 78 mg/dl (70-99); Potassium 4.7 mmol/L (3.5-5.1); Sodium 136 mmol/L (135-145); eGFR 8.00
[2025-06-10] MEDS: TYLENOL 650 MG PO (10:33)
--- NOTE | 2025-06-10 12:46 | PTOTSP ---
Dysphagia Evaluation:
Pt presents w/ acute (choking episode with pills with water, consistent coughing) and chronic (respiratory PMH) risk factors for aspiration/dysphagia. However, no reports of difficulty w/ swallowing, no hx of dysphagia/aspiration, pt is on room air,
and WBC = 10.5. It is recommended that pt is on Regulars, Thins and has medications crushed in puree as able given reported choking episode with meds with water.
Recommendations:
1. Regulars, Thins
2. Medications crushed in puree (pt preference for pudding)
3. Strategies: Single sips/small bites, slow rate, alternating liquid washes, reflux precautions
4. ST will sign off at this time. Reconsult if change in diet level tolerance or pt presentation.
--- NOTE | 2025-06-10 13:44 | W.PN.NEPH.PH ---
Today's Communication / Plan
-
cont IVF , labs in am
Assessment/Plan
-
Assessment
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
MM -velcade, steroid
Restrictive lung disease
HTN
Hypothyroid
Vertigo
History of colon cancer right hemicolectomy
Recent tooth extraction
elevated LFTs
Plan
A/w abnormal labs out pt with cr 4.8 from baseline 2
BRIANNA-likely prerenal based on history , cr remains high 4.9
reports non oliguric subjectively, measure UOP
UA UTI sample, Fena not low, follow bladder scan
renal US shows no hydro
cotn IVF for now and encourage po intake
BP stable, ok to resume home meds
Noted new liver lesions on US-notified pt and family
she does have h/o colon cancer
follow labs
d/w pt and family
no emergent indication of HD
need GOC discussion
d/w nursing
-
-
Date of Service: June 10, 2025
CC / HPI / ROS
-
Chief Complaint:
BRIANNA with CKD
History of Present Illness:
BRIANNA no change at 4.9, bciarb at 19 no change
Proteinuria nonnephrotic range 2.7gm/gm of cr
BP stable
Hemoglobin low at 8.9
Review of Systems:
No chest pain or shortness of breath
no dysuria
c/o stomach upset and still poor appetite
Labs
-
Labs:
WBC 10.5 10^3/uL (4.8-10.8) 06/09/25 21:14
RBC 2.86 10^6/uL (4.20-5.40) L 06/09/25 21:14
Hgb 8.9 g/dL (12.0-16.0) L 06/09/25 21:14
Hct 28.0 % (37.0-47.0) L 06/09/25 21:14
Plt Count 139 10^3/uL (130-400) 06/09/25 21:14
Sodium 136 mmol/L (135-145) 06/10/25 07:45
Potassium 4.7 mmol/L (3.5-5.1) 06/10/25 07:45
Chloride 109 mmol/L (98-107) H 06/10/25 07:45
Carbon Dioxide 19 mmol/L (22-30) L 06/10/25 07:45
BUN 59 mg/dl (7-17) H 06/10/25 07:45
Creatinine 4.9 mg/dL (0.6-1.0) H* 06/10/25 07:45
eGFR 8.00 06/10/25 07:45
Glucose 78 mg/dl (70-99) 06/10/25 07:45
Calcium 9.1 mg/dl (8.4-10.2) 06/10/25 07:45
Physical Exam
-
Vital Signs:
Vital Signs
Temp Pulse Resp BP Pulse Ox
98.4 F 93 16 158/94 94
06/10/25 07:10 06/10/25 08:53 06/10/25 07:30 06/10/25 08:53 06/10/25 13:27
Cardiovascular:: Regular rate and rhythm
Respiratory:: Bilateral: CTA
Lung Excursion:: Normal
Abdomen:: Nontender and Soft
Extremity Edema:: None: Bilateral:
Babb Catheter: No
--- NOTE | 2025-06-10 14:00 | W.PN.HOSP.TC ---
Today's Communication/Plan
-
Assessment / Plan
Assessment / Plan
NAD, comfortable in bed, poor skin turgor,
Scleral Anicteric
DMM
No JVD
CTABL
RRR, S1/S2
Soft, NT, ND, BS+
Wearing compression stocking
Warm, Dry
AAOx3
Calm
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
Likely prerenal etiology, unchanged
Will start by giving her 0.45 NS at a rate of 80cc/hr
Regular diet
Avoid nephrotoxins
Avoid hypotension
Renal bladder ultrasound
Bladder scan
Urine studies with sodium creat awesome protein creat ratio
Nephrology consult
MM
Ouptatient onc follow up
Liver lesions
Concerning for malignancy
Will need continued outpatient follow-up with GI and oncology
Restrictive lung disease
Continue home breathing therapies
HTN
Continue antihypertesnive
Hypothyroid
Conitnue levothyroxine
Vertigo
Continue prn meclizine
DVT ppx
HSQ
Begin goals of care discussion
Full Code
Anticipated Discharge: > 48 hours
Subjective/Interval History
-
Date of Service: June 10, 2025
Seen and examined. No new complaints. No acute overnight events.
Objective Data
-
Labs:
Laboratory Results
06/10/25
07:45
Sodium 136
Potassium 4.7
Chloride 109 H
Carbon Dioxide 19 L
BUN 59 H
Creatinine 4.9 H*
Glucose 78
Calcium 9.1
Vital Signs:
Vital Signs
Temp Pulse Resp BP Pulse Ox
98.4 F 93 16 158/94 94
06/10/25 07:10 06/10/25 08:53 06/10/25 07:30 06/10/25 08:53 06/10/25 13:27
[2025-06-10 15:15] VITALS: BP 112/57
--- NOTE | 2025-06-10 17:07 | CM ---
IA completed. IMM given and placed on chart.Pt lives in 2 story house with and son. Independent in ADL and IADLs. Hx of home care with [facility]. No hx of SNF or home O2. No insecurities identified. Confirmed PCP, Rx,insurance and drug coverage.
Continues on IVF. Liver lesions identified, possibly malignant
Plan: Home with no needs
[2025-06-10 23:38] VITALS: BP 145/72
[2025-06-11] MEDS: SYNTHROID 50 MCG PO (05:28)
[2025-06-11 06:00] VITALS: BMI 19.8
[2025-06-11] MEDS: VENTOLIN NEBULES 2.5 MG INH ×2 (07:26→14:24)
[2025-06-11] MEDS: PULMICORT 0.5 MG INH (07:26)
[2025-06-11 07:43] VITALS: BP 153/76
[2025-06-11] MEDS: MUCINEX 600 MG PO (08:11)
[2025-06-11] MEDS: PROCARDIA XL (EXTENDED RELEASE) 30 MG PO (08:11)
[2025-06-11] MEDS: SODIUM BICARBONATE 650 MG PO (08:12)
[2025-06-11] MEDS: SINGULAIR 10 MG PO (08:13)
[2025-06-11] MEDS: HEPARIN 5000 UNITS SC (08:13)
[2025-06-11 09:36] LABS: Blood Urea Nitrogen 57 mg/dl (7-17); Calcium 8.8 mg/dl (8.4-10.2); Carbon Dioxide 18 mmol/L (22-30); Chloride 108 mmol/L (98-107); Estimated Creatinine Clearance 7 ml/min; Glucose 88 mg/dl (70-99); Potassium 4.3 mmol/L (3.5-5.1); Sodium 134 mmol/L (135-145); eGFR 8.41
[2025-06-11] MEDS: 0.45%NACL 1000 IV (10:35)
--- NOTE | 2025-06-11 11:41 | W.PN.NEPH.PH ---
Today's Communication / Plan
-
Chief Complaint:
Progressive CKD abnormal
History of Present Illness:
CKD stage IIIb/IV progressive
Review of Systems:
No chest pain or shortness of breath poor appetite chronically
Assessment/Plan
-
Assessment
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
MM -velcade, steroid
Restrictive lung disease
HTN
Hypothyroid
Vertigo
History of colon cancer right hemicolectomy
Recent tooth extraction
elevated LFTs
Plan
A/w abnormal labs out pt with cr 4.8 from baseline 2
BRIANNA-likely prerenal based on history , cr remains high 4.9
Renal ultrasound no obstructive pathologyo
BP stable, ok to resume home meds
Noted new liver lesions on US-notified pt and family
she does have h/o colon cancer
follow labs
d/w pt nurse and primary
no emergent indication of HD
Discontinue half-normal saline with sodium of 134
I do not feel she needs any further fluids
There is no obvious source of her decline in renal function other than progression of disease
We did discuss hemodialysis but no indication from a volume or electrolyte standpoint
Plan will be for discharge in close follow-up
Discussed with primary team
-
-
Date of Service: June 11, 2025
CC / HPI / ROS
-
Chief Complaint:
BRIANNA with CKD
History of Present Illness:
BRIANNA no change at 4.9, bciarb at 19 no change
Proteinuria nonnephrotic range 2.7gm/gm of cr
BP stable
Hemoglobin low at 8.9
Review of Systems:
No chest pain or shortness of breath
no dysuria
c/o stomach upset and still poor appetite
Labs
-
Labs:
WBC 10.5 10^3/uL (4.8-10.8) 06/09/25 21:14
RBC 2.86 10^6/uL (4.20-5.40) L 06/09/25 21:14
Hgb 8.9 g/dL (12.0-16.0) L 06/09/25 21:14
Hct 28.0 % (37.0-47.0) L 06/09/25 21:14
Plt Count 139 10^3/uL (130-400) 06/09/25 21:14
Sodium 134 mmol/L (135-145) L 06/11/25 07:58
Potassium 4.3 mmol/L (3.5-5.1) 06/11/25 07:58
Chloride 108 mmol/L (98-107) H 06/11/25 07:58
Carbon Dioxide 18 mmol/L (22-30) L 06/11/25 07:58
BUN 57 mg/dl (7-17) H 06/11/25 07:58
Creatinine 4.7 mg/dL (0.6-1.0) H* 06/11/25 07:58
eGFR 8.41 06/11/25 07:58
Glucose 88 mg/dl (70-99) 06/11/25 07:58
Calcium 8.8 mg/dl (8.4-10.2) 06/11/25 07:58
Physical Exam
-
Vital Signs:
Vital Signs
Temp Pulse Resp BP Pulse Ox
98.2 F 83 20 153/76 99
06/11/25 07:43 06/11/25 08:11 06/11/25 07:43 06/11/25 08:11 06/11/25 08:15
--- NOTE | 2025-06-11 13:59 | W.DCSUMMARY ---
Discharge Summary
Discharge Data
Date of Admission: 06/09/25
Date of Discharge: 06/11/25
-
Pending Results: No
Hospital Course
89 female history of hypertension hypothyroidism iron deficiency restrictive lung disease CKD stage IV, multiple myeloma
Presented from [facility] for abnormal renal function that has been uptrending with a creatinine on the day of admission of 4.6. Started on IV fluids evaluated by nephrology and. Unfortunately renal function failed to improve. Creatinine on
the day of discharge was 4.7 however without significant metabolic derangements therefore no indication for emergent renal replacement therapy with hemodialysis. However, likely will require hemodialysis in the very near future if not urgently.
Will need continued outpatient nephrology follow-up.
Doing a workup on abnormal renal function potentially suspected to prerenal etiology from poor p.o. intake. A renal bladder ultrasound was obtained which did show chronic kidney disease but also went on to show large liver lesions concerning for
neoplastic disease. Outpatient oncologist was made aware [facility] recommended outpatient MRI of the liver.
Renal bladder ultrasound
IMPRESSION:
1. Findings suggesting chronic medical renal disease. No hydronephrosis.
2. Stable complex lower pole right renal cyst, likely benign.
3. Numerous large hepatic masses incidentally noted, suspicious for neoplasm/metastases.
Seen and examined on day of discharge. No new complaints. No acute overnight events.
Was sitting in bedside chair comfortable.
NAD
Scleral Anicteric
MMM
No JVD
CTABL
RRR, S1/S2
Soft, NT, ND, BS+
Warm, Dry
AAOx3
Calm
More than 30 minutes spent in discharge including
Final examination of the patient
Summarizing hospital stay
Instructions for continuing care to all relevant caregivers
Preparation of discharge records, prescriptions, and referral forms
Total time spent (in minutes): 33mins
Discharge Plan
-
Patient Disposition: Home (Routine Discharge)
Discharge Diagnosis/Procedures: BRIANNA
Large Liver Lesion
Condition: Good
Diet: As tolerated
Activity: As tolerated
Blood Work: Repeat BMP with [employer] or PCP
Activity Restrictions/Additional Instructions:
Presented from [facility] for abnormal renal function that has been uptrending with a creatinine on the day of admission of 4.6. Started on IV fluids evaluated by nephrology and. Unfortunately renal function failed to improve. Creatinine on
the day of discharge was 4.7 however without significant metabolic derangements therefore no indication for emergent renal replacement therapy with hemodialysis. However, likely will require hemodialysis in the very near future if not urgently.
Will need continued outpatient nephrology follow-up.
Doing a workup on abnormal renal function potentially suspected to prerenal etiology from poor p.o. intake. A renal bladder ultrasound was obtained which did show chronic kidney disease but also went on to show large liver lesions concerning for
neoplastic disease. Outpatient oncologist was made aware [facility] recommended outpatient MRI of the liver.
Renal bladder ultrasound
IMPRESSION:
1. Findings suggesting chronic medical renal disease. No hydronephrosis.
2. Stable complex lower pole right renal cyst, likely benign.
3. Numerous large hepatic masses incidentally noted, suspicious for neoplasm/metastases.
Instructions: Acute kidney injury, Chronic kidney disease
Referrals:
Yosef Jones DO [Active, Nephrology] - in one week
Krystian Campos MD [Family Provider, Internal Medicine]
Additional Discharge Medication Instructions: Avoid nsaids such as ibuprofen, alieve motrin etc
Allopurinol take 50mg twice a week. Stop allopurinol 100mg daily.
Prescriptions:
New
sodium bicarbonate 650 mg Tablet
650 mg PO BID Qty: 60 0RF
meclizine 12.5 mg Tablet
12.5 mg PO PRN PRN (Reason: positional vertigo) Qty: 15 0RF
montelukast 10 mg Tablet
10 mg PO DAILY Qty: 30 0RF
allopurinol 100 mg tablet
50 mg PO .twice a week Qty: 30 0RF
Continued
levothyroxine 50 mcg Capsule
50 mcg PO DAILY
albuterol sulfate 2.5 MG/3 ML solution for nebulization
2.5 mg inhalation QID
nifedipine 30 mg Tablet Extended Release
30 mg PO DAILY Qty: 30 0RF
budesonide 0.5 mg/2 mL Suspension For Nebulization
0.5 mg inhalation BID
calcitriol 0.5 mcg capsule
0.5 mcg PO DAILY
montelukast 10 mg tablet
10 mg PO DAILY
acyclovir 200 mg capsule
200 mg PO BID
Discontinued
allopurinol 100 mg tablet
100 mg PO DAILY
Discharge Orders:
Discharge Patient (As Directed); Ordered 06/11/25
Ordered By: Tristin Del Castillo
Discharge Date and Time
Print Language: LEBANESE
--- NOTE | 2025-06-11 14:22 | CM ---
Pt discharged to home with no needs. Son will transport pt home in private car.
[2025-06-11 14:47] VITALS: BP 131/69
== END 2025-06-11 14:56 | disposition home or self-care (01) | DRG 683 ==
LOC: 4 EAST ACU 16:37
PROVIDERS: ADMITTING PHYSICIAN Hospitalist; CONSULT PHYSICIAN Internal Medicine; EMERGENCY PHYSICIAN Student in an Organized Health Care Education/Training Program; FAMILY PHYSICIAN Internal Medicine Geriatric Medicine
DX: N17.9 Acute kidney failure, unspecified (principal); C90.00 Multiple myeloma not having achieved remission; K76.9 Liver disease, unspecified; Z79.899 Other long term (current) drug therapy; Z79.890 Hormone replacement therapy; Z85.038 Personal history of other malignant neoplasm of large intestine; I12.9 Hypertensive chronic kidney disease with stage 1 through stage 4 chronic kidney disease, or unspecified chronic kidney disease; N18.4 Chronic kidney disease, stage 4 (severe); E03.9 Hypothyroidism, unspecified; J98.4 Other disorders of lung; J45.909 Unspecified asthma, uncomplicated; N28.1 Cyst of kidney, acquired; Z79.51 Long term (current) use of inhaled steroids; Z90.49 Acquired absence of other specified parts of digestive tract; Z91.81 History of falling; D50.9 Iron deficiency anemia, unspecified
CPT/HCPCS: 36415; 76770; 80048; 80053; 81003; 81015; 82570; 83735; 83935; 84100; 84156; 84300; 84550; 85025; 85027; 92610; 94640

== ENCOUNTER → 2025-06-16 10:32 | Outpatient (REF) | payer OTHER, SELFPAY ==
[2025-06-16 10:48] LABS: Hematocrit 28.9 % (37.0-47.0); Hemoglobin 9.3 g/dL (12.0-16.0); Mean Corp Hgb Conc. 32.2 g/dL (33.0-37.0); Mean Corpuscular Volume 97.6 fL (81.0-99.0); Platelet Count 180 10^3/uL (130-400); Red Cell Dist. Width 14.7 % (11.5-14.5)
[2025-06-16 11:48] LABS: ALT (SGPT) 30 U/L (0-35); AST (SGOT) 49 U/L (14-36); Albumin 3.8 g/dl (3.5-5.0); Alkaline Phosphatase 233 U/L (38-126); Blood Urea Nitrogen 46 mg/dl (7-17); Calcium 9.7 mg/dl (8.4-10.2); Carbon Dioxide 25 mmol/L (22-30); Chloride 104 mmol/L (98-107); Glucose 91 mg/dl (70-99); Potassium 4.2 mmol/L (3.5-5.1); Sodium 134 mmol/L (135-145); Total Protein 6.1 g/dl (6.3-8.2); Uric Acid 9.3 mg/dl (2.5-6.2); eGFR 11.98
[2025-06-16 12:53] LABS: ALT (SGPT) 31 U/L (0-35); AST (SGOT) 49 U/L (14-36); Albumin 3.7 g/dl (3.5-5.0); Alkaline Phosphatase 233 U/L (38-126); Blood Urea Nitrogen 45 mg/dl (7-17); Calcium 9.8 mg/dl (8.4-10.2); Carbon Dioxide 23 mmol/L (22-30); Chloride 103 mmol/L (98-107); Glucose 88 mg/dl (70-99); Potassium 3.9 mmol/L (3.5-5.1); Sodium 132 mmol/L (135-145); Total Protein 6.0 g/dl (6.3-8.2); eGFR 12.40
[2025-06-17 12:34] LABS: CEA 730 ng/ml
== END ==
LOC: OIDL 10:32
PROVIDERS: ATTENDING PHYSICIAN Internal Medicine Hematology & Oncology; FAMILY PHYSICIAN Internal Medicine Geriatric Medicine
DX: C90.00 Multiple myeloma not having achieved remission (principal); D63.1 Anemia in chronic kidney disease; D63.0 Anemia in neoplastic disease; K76.89 Other specified diseases of liver
CPT/HCPCS: 80048; 80053; 80076; 82232; 82378; 82784; 83521; 84100; 84155; 84165; 84550; 85025; 86334

== ENCOUNTER → 2025-06-21 10:35 | Outpatient (REF) | payer OTHER, SELFPAY ==
[2025-06-21 10:54] LABS: Hematocrit 29.1 % (37.0-47.0); Hemoglobin 9.4 g/dL (12.0-16.0); Mean Corp Hgb Conc. 32.3 g/dL (33.0-37.0); Mean Corpuscular Volume 97.3 fL (81.0-99.0); Platelet Count 188 10^3/uL (130-400); Red Cell Dist. Width 14.8 % (11.5-14.5)
[2025-06-21 11:52] LABS: ALT (SGPT) 32 U/L (0-35); AST (SGOT) 68 U/L (14-36); Albumin 3.5 g/dl (3.5-5.0); Alkaline Phosphatase 193 U/L (38-126); Blood Urea Nitrogen 49 mg/dl (7-17); Calcium 9.5 mg/dl (8.4-10.2); Carbon Dioxide 26 mmol/L (22-30); Chloride 102 mmol/L (98-107); Glucose 109 mg/dl (70-99); Potassium 4.3 mmol/L (3.5-5.1); Sodium 133 mmol/L (135-145); Total Protein 5.7 g/dl (6.3-8.2); eGFR 15.01
[2025-06-21 11:53] LABS: Uric Acid 8.1 mg/dl (2.5-6.2)
== END ==
LOC: OIDL 10:35
PROVIDERS: ATTENDING PHYSICIAN Internal Medicine Nephrology; FAMILY PHYSICIAN Internal Medicine Geriatric Medicine; REFERRING PHYSICIAN Nurse Practitioner Primary Care
DX: I10 Essential (primary) hypertension (principal); D50.0 Iron deficiency anemia secondary to blood loss (chronic); I27.20 Pulmonary hypertension, unspecified; N17.9 Acute kidney failure, unspecified; C90.00 Multiple myeloma not having achieved remission; D63.1 Anemia in chronic kidney disease; D63.0 Anemia in neoplastic disease; K76.89 Other specified diseases of liver
CPT/HCPCS: 36415; 80053; 84100; 84550; 85025

== ENCOUNTER → 2025-06-30 11:29 | Outpatient (REF) | payer OTHER, SELFPAY ==
[2025-06-30 11:54] LABS: Hematocrit 28.9 % (37.0-47.0); Hemoglobin 9.0 g/dL (12.0-16.0); Mean Corp Hgb Conc. 31.1 g/dL (33.0-37.0); Mean Corpuscular Volume 98.3 fL (81.0-99.0); Platelet Count 172 10^3/uL (130-400); Red Cell Dist. Width 14.7 % (11.5-14.5)
[2025-06-30 12:24] LABS: ALT (SGPT) 24 U/L (0-35); AST (SGOT) 33 U/L (14-36); Albumin 3.5 g/dl (3.5-5.0); Alkaline Phosphatase 200 U/L (38-126); Blood Urea Nitrogen 38 mg/dl (7-17); Calcium 10.2 mg/dl (8.4-10.2); Carbon Dioxide 29 mmol/L (22-30); Chloride 102 mmol/L (98-107); Glucose 119 mg/dl (70-99); Potassium 4.7 mmol/L (3.5-5.1); Sodium 137 mmol/L (135-145); Total Protein 5.6 g/dl (6.3-8.2); Uric Acid 7.0 mg/dl (2.5-6.2); eGFR 24.93
[2025-06-30 12:38] LABS: Vitamin D, 25-OH*** 41.3 ng/mL (30-80)
== END ==
LOC: OIDL 11:29
PROVIDERS: ATTENDING PHYSICIAN Internal Medicine Hematology & Oncology; FAMILY PHYSICIAN Internal Medicine Geriatric Medicine; REFERRING PHYSICIAN Internal Medicine Nephrology
DX: C90.00 Multiple myeloma not having achieved remission (principal)
CPT/HCPCS: 36415; 80053; 82306; 83970; 84100; 84550; 85025

== ENCOUNTER → 2025-07-06 13:17 | Outpatient (REF) | payer OTHER, SELFPAY | LOC: RAD 13:17 | PROVIDERS: ATTENDING PHYSICIAN Nurse Practitioner Adult Health; FAMILY PHYSICIAN Internal Medicine Geriatric Medicine | DX: R22.43 Localized swelling, mass and lump, lower limb, bilateral (principal) | CPT/HCPCS: 93970 ==

== ENCOUNTER → 2025-07-07 10:18 | Outpatient (REF) | payer OTHER, SELFPAY ==
[2025-07-07 10:39] LABS: Hematocrit 27.0 % (37.0-47.0); Hemoglobin 8.4 g/dL (12.0-16.0); Mean Corp Hgb Conc. 31.1 g/dL (33.0-37.0); Mean Corpuscular Volume 99.6 fL (81.0-99.0); Platelet Count 153 10^3/uL (130-400); Red Cell Dist. Width 15.2 % (11.5-14.5)
[2025-07-07 11:25] LABS: ALT (SGPT) 33 U/L (0-35); AST (SGOT) 47 U/L (14-36); Albumin 3.3 g/dl (3.5-5.0); Alkaline Phosphatase 203 U/L (38-126); Blood Urea Nitrogen 29 mg/dl (7-17); Calcium 10.1 mg/dl (8.4-10.2); Carbon Dioxide 32 mmol/L (22-30); Chloride 103 mmol/L (98-107); Glucose 87 mg/dl (70-99); Potassium 4.3 mmol/L (3.5-5.1); Sodium 136 mmol/L (135-145); Total Protein 5.4 g/dl (6.3-8.2); Uric Acid 6.3 mg/dl (2.5-6.2); eGFR 28.49
== END ==
LOC: OIDL 10:18
PROVIDERS: Internal Medicine Hematology & Oncology; ATTENDING PHYSICIAN Internal Medicine Hematology & Oncology; FAMILY PHYSICIAN Internal Medicine Geriatric Medicine; REFERRING PHYSICIAN Internal Medicine Nephrology
DX: C90.00 Multiple myeloma not having achieved remission (principal)
CPT/HCPCS: 36415; 80053; 84100; 84550; 85025

== ENCOUNTER → 2025-07-14 10:32 | Outpatient (REF) | payer OTHER, SELFPAY ==
[2025-07-14 10:44] LABS: Hematocrit 27.7 % (37.0-47.0); Hemoglobin 8.6 g/dL (12.0-16.0); Mean Corp Hgb Conc. 31.0 g/dL (33.0-37.0); Mean Corpuscular Volume 100.7 fL (81.0-99.0); Platelet Count 133 10^3/uL (130-400); Red Cell Dist. Width 15.6 % (11.5-14.5)
[2025-07-14 11:21] LABS: ALT (SGPT) 33 U/L (0-35); AST (SGOT) 44 U/L (14-36); Albumin 3.5 g/dl (3.5-5.0); Alkaline Phosphatase 226 U/L (38-126); Blood Urea Nitrogen 24 mg/dl (7-17); Calcium 9.5 mg/dl (8.4-10.2); Carbon Dioxide 33 mmol/L (22-30); Chloride 102 mmol/L (98-107); Glucose 89 mg/dl (70-99); Potassium 4.7 mmol/L (3.5-5.1); Sodium 136 mmol/L (135-145); Total Protein 5.8 g/dl (6.3-8.2); Uric Acid 7.0 mg/dl (2.5-6.2); eGFR 24.93
== END ==
LOC: OIDL 10:32
PROVIDERS: ATTENDING PHYSICIAN Nurse Practitioner Primary Care; FAMILY PHYSICIAN Internal Medicine Geriatric Medicine
DX: C90.00 Multiple myeloma not having achieved remission (principal); D63.0 Anemia in neoplastic disease; K76.89 Other specified diseases of liver
CPT/HCPCS: 36415; 80053; 84550; 85025

== ENCOUNTER 2025-07-17 22:53 | Inpatient (IN) | payer OTHER, SELFPAY ==
[2025-07-17 17:59] VITALS: BP 127/74
[2025-07-17 19:12] VITALS: BP 132/62
[2025-07-17 19:13] VITALS: BMI 20.9
[2025-07-17 19:32] LABS: Hematocrit 28.9 % (37.0-47.0); Hemoglobin 8.7 g/dL (12.0-16.0); Mean Corp Hgb Conc. 30.1 g/dL (33.0-37.0); Mean Corpuscular Volume 102.5 fL (81.0-99.0); Nucleated Red Blood Cells % 0 %; Platelet Count 123 10^3/uL (130-400); Red Cell Dist. Width 16.3 % (11.5-14.5)
[2025-07-17] MEDS: NSS 500 IV (19:42)
[2025-07-17] MEDS: DILAUDID 0.5 MG IV ×2 (19:42→20:34)
[2025-07-17] MEDS: ZOFRAN 4 MG IV (19:43)
[2025-07-17 19:44] LABS: ALT (SGPT) 35 U/L (0-35); AST (SGOT) 38 U/L (14-36); Albumin 3.6 g/dl (3.5-5.0); Alkaline Phosphatase 210 U/L (38-126); Blood Urea Nitrogen 30 mg/dl (7-17); Calcium 8.5 mg/dl (8.4-10.2); Carbon Dioxide 25 mmol/L (22-30); Chloride 107 mmol/L (98-107); Estimated Creatinine Clearance 17 ml/min; Glucose 121 mg/dl (70-99); Lipase 104 U/L (23-300); Potassium 5.0 mmol/L (3.5-5.1); Sodium 137 mmol/L (135-145); Total Protein 5.7 g/dl (6.3-8.2); eGFR 24.93
[2025-07-17 20:00] VITALS: BP 132/56
--- NOTE | 2025-07-17 20:04 | ED.GENMED ---
History of Present Illness
<Naomi Cameron PA-C - Last Filed: 07/18/25 07:26>
General
Chief Complaint: Abdominal Pain
Source: patient
Exam Limitations: none
Time Seen by Provider: 07/17/25 18:54
Nursing documentation reviewed up to this point in time: agreed with
History of Present Illness
History of Present Illness:
SEE mdm
Past History
<TESHA Marquez Last Filed: 07/18/25 07:26>
Past History
ED Past Medical History: Asthma, Cancer (Multiple myeloma undergoing chemotherapy), Hypothyroidism and Other (Low platelets, hypothyroidism)
ED Past Surgical History: Appendectomy
Social History
Tobacco: Non-smoker
Alcohol: Occasional
Drug: None
Personal:
Living: with family
Employment: Retired
Family History
Family History: Other (Father with cirrhosis)
Phy Exam
<TESHA Marquez Last Filed: 07/18/25 07:26>
Physical Exam
Physical Exam:
GENERAL: Alert , in no apparent distress
EYE: pupils equal and reactive
NECK: Supple
ENT: o/p clr, mmm.
CARDIAC: Regular rate and rhythm .
LUNGS: Clear breath sounds bilaterally, no acute respiratory distress, no wheezes/rales/rhonchi
ABDOMEN: DISTENDED TENDER,no r/g, no cvat, normal bowel sounds
bladder scan 2 mL
NEUROLOGICAL: Alert and oriented, no focal neuro deficits
SKIN: Warm and dry, skin intact.
MUSCULOSKELETAL: No edema, well perfused. neg cande's sign
PSYCH: Normal and appropriate interaction.
Course
<TESHA Marquez Last Filed: 07/18/25 07:26>
Orders/Labs/Results
Orders:
Orders
11/22/25 19:21
IV Insert/Care/Rem.- Treatment PRN
07/17/25 19:23
Complete Blood Count/With Diff Urgent
Comprehensive Metabolic Panel Urgent
Lipase Urgent
07/17/25 19:33
CT Abd/pel Without Iv Or Oral Urgent
Reason For Exam: ABD DISTENTION, DIARRHEA
HYDROmorphone [Dilaudid] 0.5 mg IV NOW STA
Ondansetron Injectable [Zofran] 4 mg IV NOW STA
07/17/25 19:37
0.9% Sodium Chloride 500 ml [Nss] 500 ml IV BOLUS
07/17/25 19:44
Lactic Acid Urgent
07/17/25 20:09
HYDROmorphone [Dilaudid] 0.5 mg IV NOW STA
07/17/25 21:50
NG Tube [GI tube insertion- Treatment] ONCE
07/17/25 22:28
Admit/Transfer Patient As Directed
Co-Sign Provider:
Level of Care: Inpatient admission
Assign to:: Medical/Surgical
Physician / Group: Kisha
Diagnosis: Small bowel obstruction
Reason for Hospitalization: SBO
Expected length of stay greater than two midnights?: Yes
ELOS- Estimated Length of Stay in days: 2
I certify the patient meets the requirements for IP care: Yes
07/17/25 22:29
PRN Pain Medication Management As Directed
May give lesser potent ordered pain med per pt: Yes
preference::
Protocol:: Medication orders for pain may be administered in a
manner that supports deferring to patient preference
when the pt is:
- Requesting an ordered lesser potent pain medication.
Least to most potent pain medications are defined
as: acetaminophen < NSAID < tramadol < opioids
(morphine, oxycodone, hydromorphone).
- Requesting a lesser dose of the same medication IF
ORDERED.
- Requesting a less intrusive route of administration
if both routes are prescribed by the provider (PO <
IV).
07/17/25 22:30
Code Status As Directed
Resuscitation Status: Full Code
07/18/25 01:27
Acetaminophen [Tylenol/Feverall] 650 mg RECTAL Q4HPRN PRN
Acetaminophen [Tylenol] 650 mg PO Q4HPRN PRN
Dextrose 5%/Lactringers 1000ML [D5lr] 1,000 ml IV 60 mls/hr
HYDROmorphone [Dilaudid] 0.5 mg IV Q4HPRN PRN
Meclizine [Antivert] 12.5 mg PO DAILYPRN PRN positional vertigo
Ondansetron Injectable [Zofran] 4 mg IV Q6HPRN PRN
07/18/25 01:27
Consult Notification Routine
Specialty to Notify: Oncology
ONCOLOGY CONSULT Routine
Consulting Provider: Mahesh Oliva
Was physician already notified: No
Reason for consult: Multiple myeloma, new metastatic hepatic/retroperitoneal lesions, sbo
SURGICAL CONSULT Routine
Consulting Provider: Stephan Gayle
Was physician already notified: Yes
Activity As Directed
Activity Level: With Assistance
NG Tube [Gastrointestinal Tubes] As Directed
To suction?: Yes
Type of suction: Low intermittent
Vital Signs As Directed
Frequency: Per unit guidelines
O2 Therapy [RESP] Routine
Nasal Cannula Liter Flow: 2 LPM
Titrate/Wean O2 to maintain O2 sat greater than (%): 93
DX Deep Vein Thrombosis Video Routine
07/18/25 03:16
Basic Metabolic Panel IN AM
Complete Blood Count/No Diff IN AM
Magnesium IN AM
07/18/25 06:00
Heparin 5,000 units SC Q8
Levothyroxine [Synthroid] 50 mcg PO DAILY @ 0600
07/18/25 08:00
Acyclovir [Zovirax] 200 mg PO BID
Albuterol Nebs [Ventolin Nebules] 2.5 mg INH R QID
Budesonide [Pulmicort] 0.5 mg INH R BID
Calcitriol [Rocaltrol] 0.5 mcg PO DAILY
Montelukast Sodium [Singulair] 10 mg PO DAILY
NIFEdipine EXTENDED RELEASE [Procardia Xl (Extended Release)] 30 mg PO DAILY
07/18/25 Dinner
NPO
Allow oral meds: Yes
Allow clear liquids: No
07/18/25 22:00
Famotidine [Pepcid] 20 mg IV Q48H
Abnormal Lab Results
07/17/25
19:23
RBC 2.82 L 10^6/uL
(4.20-5.40)
Hgb 8.7 L g/dL
(12.0-16.0)
Hct 28.9 L %
(37.0-47.0)
MCV 102.5 H fL
(81.0-99.0)
MCHC 30.1 L g/dL
(33.0-37.0)
RDW 16.3 H %
(11.5-14.5)
Plt Count 123 L 10^3/uL
(130-400)
MPV 13.0 H fL
(7.4-10.4)
Absolute Lymphs (auto) 0.1 L 10^3/uL
(1.2-3.4)
Neutrophils % 89.7 H %
(42.2-75.2)
Lymphocytes % 1.6 L %
(20.5-51.1)
BUN 30 H mg/dl
(7-17)
Creatinine 1.9 H mg/dL
(0.6-1.0)
Glucose 121 H mg/dl
(70-99)
AST 38 H U/L
(14-36)
Alkaline Phosphatase 210 H U/L
(38-126)
Total Protein 5.7 L g/dl
(6.3-8.2)
07/17/25 19:23
07/17/25 19:23
Vital Signs
Initial and Last Documented VS:
Initial Vital Signs
Temp Pulse Resp BP Pulse Ox
36.8 C 92 16 127/74 98
07/17/25 17:59 07/17/25 17:59 07/17/25 17:59 07/17/25 17:59 07/17/25 17:59
Last Documented Vital Signs
Temp Pulse Resp BP Pulse Ox
37.6 C 86 16 122/65 95
07/18/25 03:41 07/18/25 02:26 07/18/25 02:26 07/18/25 02:08 07/18/25 02:26
<Ellis Fernandez MD - Last Filed: 07/17/25 22:29>
Orders/Labs/Results
Orders:
Orders
07/17/25 19:21
IV Insert/Care/Rem.- Treatment PRN
07/17/25 19:23
Complete Blood Count/With Diff Urgent
Comprehensive Metabolic Panel Urgent
Lipase Urgent
07/17/25 19:33
CT Abd/pel Without Iv Or Oral Urgent
Reason For Exam: ABD DISTENTION, DIARRHEA
HYDROmorphone [Dilaudid] 0.5 mg IV NOW STA
Ondansetron Injectable [Zofran] 4 mg IV NOW STA
07/17/25 19:37
0.9% Sodium Chloride 500 ml [Nss] 500 ml IV BOLUS
07/17/25 19:44
Lactic Acid Urgent
07/17/25 20:09
HYDROmorphone [Dilaudid] 0.5 mg IV NOW STA
07/17/25 21:50
NG Tube [GI tube insertion- Treatment] ONCE
07/17/25 22:28
Admit/Transfer Patient As Directed
Co-Sign Provider:
Level of Care: Inpatient admission
Assign to:: Medical/Surgical
Physician / Group: Kisha
Diagnosis: Small bowel obstruction
Reason for Hospitalization: SBO
Expected length of stay greater than two midnights?: Yes
ELOS- Estimated Length of Stay in days: 2
I certify the patient meets the requirements for IP care: Yes
07/17/25 22:29
PRN Pain Medication Management As Directed
May give lesser potent ordered pain med per pt: Yes
preference::
Protocol:: Medication orders for pain may be administered in a
manner that supports deferring to patient preference
when the pt is:
- Requesting an ordered lesser potent pain medication.
Least to most potent pain medications are defined
as: acetaminophen < NSAID < tramadol < opioids
(morphine, oxycodone, hydromorphone).
- Requesting a lesser dose of the same medication IF
ORDERED.
- Requesting a less intrusive route of administration
if both routes are prescribed by the provider (PO <
IV).
07/17/25 22:30
Code Status As Directed
Resuscitation Status: Full Code
07/18/25 01:27
Acetaminophen [Tylenol/Feverall] 650 mg RECTAL Q4HPRN PRN
Acetaminophen [Tylenol] 650 mg PO Q4HPRN PRN
Dextrose 5%/Lactringers 1000ML [D5lr] 1,000 ml IV 60 mls/hr
HYDROmorphone [Dilaudid] 0.5 mg IV Q4HPRN PRN
Meclizine [Antivert] 12.5 mg PO DAILYPRN PRN positional vertigo
Ondansetron Injectable [Zofran] 4 mg IV Q6HPRN PRN
07/18/25 01:27
Consult Notification Routine
Specialty to Notify: Oncology
ONCOLOGY CONSULT Routine
Consulting Provider: Mahesh Oliva
Was physician already notified: No
Reason for consult: Multiple myeloma, new metastatic hepatic/retroperitoneal lesions, sbo
SURGICAL CONSULT Routine
Consulting Provider: Stephan Gayle
Was physician already notified: Yes
Activity As Directed
Activity Level: With Assistance
NG Tube [Gastrointestinal Tubes] As Directed
To suction?: Yes
Type of suction: Low intermittent
Vital Signs As Directed
Frequency: Per unit guidelines
O2 Therapy [RESP] Routine
Nasal Cannula Liter Flow: 2 LPM
Titrate/Wean O2 to maintain O2 sat greater than (%): 93
DX Deep Vein Thrombosis Video Routine
07/18/25 03:16
Basic Metabolic Panel IN AM
Complete Blood Count/No Diff IN AM
Magnesium IN AM
07/18/25 06:00
Heparin 5,000 units SC Q8
Levothyroxine [Synthroid] 50 mcg PO DAILY @ 0600
07/18/25 08:00
Acyclovir [Zovirax] 200 mg PO BID
Albuterol Nebs [Ventolin Nebules] 2.5 mg INH R QID
Budesonide [Pulmicort] 0.5 mg INH R BID
Calcitriol [Rocaltrol] 0.5 mcg PO DAILY
Montelukast Sodium [Singulair] 10 mg PO DAILY
NIFEdipine EXTENDED RELEASE [Procardia Xl (Extended Release)] 30 mg PO DAILY
07/18/25 Dinner
NPO
Allow oral meds: Yes
Allow clear liquids: No
07/18/25 22:00
Famotidine [Pepcid] 20 mg IV Q48H
Abnormal Lab Results
07/17/25
19:23
RBC 2.82 L 10^6/uL
(4.20-5.40)
Hgb 8.7 L g/dL
(12.0-16.0)
Hct 28.9 L %
(37.0-47.0)
MCV 102.5 H fL
(81.0-99.0)
MCHC 30.1 L g/dL
(33.0-37.0)
RDW 16.3 H %
(11.5-14.5)
Plt Count 123 L 10^3/uL
(130-400)
MPV 13.0 H fL
(7.4-10.4)
Absolute Lymphs (auto) 0.1 L 10^3/uL
(1.2-3.4)
Neutrophils % 89.7 H %
(42.2-75.2)
Lymphocytes % 1.6 L %
(20.5-51.1)
BUN 30 H mg/dl
(7-17)
Creatinine 1.9 H mg/dL
(0.6-1.0)
Glucose 121 H mg/dl
(70-99)
AST 38 H U/L
(14-36)
Alkaline Phosphatase 210 H U/L
(38-126)
Total Protein 5.7 L g/dl
(6.3-8.2)
07/17/25 19:23
07/17/25 19:23
Vital Signs
Initial and Last Documented VS:
Initial Vital Signs
Temp Pulse Resp BP Pulse Ox
36.8 C 92 16 127/74 98
07/17/25 17:59 07/17/25 17:59 07/17/25 17:59 07/17/25 17:59 07/17/25 17:59
Last Documented Vital Signs
Temp Pulse Resp BP Pulse Ox
37.6 C 86 16 122/65 95
07/18/25 03:41 07/18/25 02:26 07/18/25 02:26 07/18/25 02:08 07/18/25 02:26
<Naomi Cameron PA-C - Last Filed: 07/18/25 07:26>
MDM/Problems Addressed
Differential Diagnosis Includes:
see MDM
MDM/Problems Addressed:
Note:
CHIEF COMPLAINT(S)
Severe abdominal pain and diarrhea.
HISTORY OF PRESENT ILLNESS
Patient is an 89-year-old female with a history of multiple myeloma on chemotherapy, colon cancer with a suspicion of recurrence, partial colon resection in the past presents for abdominal pain. The abdominal pain started last night and is
associated with bloating. The patient reports having three episodes of diarrhea.which was pretty severe. She experienced more diarrhea around 6:00 AM and again after breakfast, but has not eaten anything since, due to pain and nausea. The patient
denies vomiting. She has had pain and some diarrhea/constipation over the last week or 2 but this is much more significant. She is more distended than normal. Patient says she did not eat or drink anything after breakfast this morning because of
the pain.
She has never had a bowel obstruction that she knows of
PAST MEDICAL AND SURGICAL HISTORY
The patient has a history of colon cancer for which she underwent a partial colectomy with an ostomy takedown. She also had a rectal resection and a hemicolectomy. Additionally, there is a history of liver involvement as part of her cancer
treatment. The patient is currently undergoing chemotherapy, with her last treatment occurring on .
SOCIAL DETERMINANTS AFFECTING HEALTH
The patient has identified that the discomfort and symptoms may be related to a bowel obstruction, indicated by the bloating and diarrhea. She has been experiencing distress due to ongoing cancer treatment.
REVIEW OF SYSTEMS
- Gastrointestinal: Severe abdominal pain, bloating, three episodes of diarrhea (black initially), nausea, and slight jaundice.
- General: No vomiting reported.
- Respiratory: Passing gas, indicating bowel function is present.
PHYSICAL EXAM
Nursing notes reviewed and vital signs reviewed.
PLAN
The plan includes ordering a computed tomography (CT) scan without contrast to evaluate the abdomen, considering the patients severe discomfort and potential bowel obstruction. Pain management will be provided without delay using medication, but no
chronic pain medication like morphine is currently prescribed. The concern is for a possible bowel obstruction, and prompt imaging is necessary for diagnosis.
DIFFERENTIAL DIAGNOSIS
The Differential Diagnosis includes, in no particular order and is not limited to:
1. Bowel obstruction
2. Recurrence of colon cancer
3. Hepatic metastasis
4. Peptic ulcer disease
5. Diverticulitis
6. Gastroenteritis
7. Inflammatory bowel disease
8. Ischemic bowel
9. Gastric outlet obstruction
10. Pancreatitis
89-year-old female with history of multiple myeloma on chemo with history of previous colon cancer and colon resection presents for abdominal distention, diarrhea and severe pain. Sounds like the symptoms were ongoing a few weeks ago with mild
constipation and then presented more with more distention and pain over the last 2 days with significant tenderness to her lower abdomen, firmness
Bladder scan was 2 mL
Stable vitals, lactate normal, hemoglobin stable, kidney function baseline Noncon CT pending, observed by me which looks like a bowel obstruction. Consulted with Dr. Gayle from colorectal surgery pending CT report. Will admit
CT shows findings c/w SBO/ileus
limited but could also be mesenteric ischemia
also with new mets
lactate normal
pt stable but very uncomfortable
surgery dr. gayle made aware
recommends NGT
pt is declining comfort care
<Naomi Cameron PA-C - Last Filed: 07/18/25 07:26>
*Pulse Oximetry
SaO2: 95
Oxygen Mode of Delivery: Room air
Patient hypoxic: no (95)
*Critical Care Note
Total Time (30-74mins, 75-104mins- exclusive of procedures): Not Applicable
ED Attending Note
<Naomi Cameron PA-C - Last Filed: 07/18/25 07:26>
-
Portions of this chart may have been created with voice recognition software.� Occasional wrong word or��sound alike� substitutions may have occurred due to the inherent limitations of voice recognition software.
<Ellis Fernandez MD - Last Filed: 07/17/25 22:29>
ED Attending Note
Patient seen and examined by attending physician: Yes
ED Attending Note:
Patient with history of colon cancer, status post partial colon resection, presents to ED secondary to abdominal pain with constipation over the past 2 weeks, which has worsened over the past 3 days with significant distention and 2 episodes of
diarrhea. Abdominal pain described as sharp, diffuse, without any alleviating or exacerbating factors. Denies fever or chills. Denies vomiting, although with intermittent nausea sensation. Denies trauma. Denies recent change in medication.
Denies trauma. Denies previous history of similar abdominal distention. Patient has taken MiraLAX on multiple occasions due to constipation.
Physical Exam
General: mild painful distress, not acutely ill. afebrile
Head: nc/at. eomi
Neck: supple. no meningeal signs.
Heart: s1/s2 regular rate and rhythm
Lungs: no acute respiratory distress. clear bilaterally
Abdomen: normal bowel sounds. diffuse swelling with tenderness noted
Neuro: alert and oriented x 3. no focal neurological deficits
Skin: no rash
Psychiatric: well kept. interactive and cooperative
Extremities: no edema. no calf tenderness.
CT report reviewed and discussed with patient and family. Patient will be admitted for further evaluation and treatment. On-call colorectal surgery, Dr. Gayle, notified via [facility] text.
Discharge Plan
Departure
Patient Disposition: Admit
Date of Disposition: 07/17/25
Time of Disposition: 21:38
Admit to: Med/Surg
Presentation/result/management discussed w/ accepting MD/DO: Hospitalist
Condition: Fair
Covid-19: Not Applicable
Discharge Problem:
Ileus, Metastatic disease
Interventions
Interventions:
*Risk Screen - Suicide Last Done: 07/17/25 17:59
*General Assessment Last Done: 07/17/25 19:11
*Neglect/Abuse Screening Last Done: 07/17/25 17:59
*ED- Fall Risk Assessment Last Done: 07/17/25 19:11
*ED COVID-19 Vaccine History Last Done: 07/18/25 02:27
*ED Influenza Vaccine History Last Done: 07/17/25 19:11
*Nursing Disposition Last Done: 07/18/25 01:36
QC-Pkheia-Jqdfoqsufu Assessment Last Done: 07/17/25 19:14
Discharge Date and Time
Discharge Date/Time: 07/18/25 01:37
[2025-07-17 21:00] VITALS: BP 144/66
--- NOTE | 2025-07-17 21:44 | HPS.HSE ---
Family Physician
-
Family Physician: Krystian Campos
Chief Complaint
-
Abdominal pain
History of Present Illness
This is a 84-year-old female with past medical history significant for colon cancer status post small bowel resection about 2 years ago with remission of disease, asthma, chronic vertigo, hypertension CKD stage IV, restrictive lung disease and
hypothyroid who was also on chemotherapy for multiple myeloma presents to the Emergency Department with abdominal pain.
Patient reported that she had recent screening colonoscopy which showed no recurrence of disease. However he had a recent elevation in CEA with concern for disease and a PET scan has been scheduled as an outpatient. She reports that over the last
2 to 3 days she has had abdominal pain and distention. She has had had diarrhea intermittently for the last 2 days as well. She had a bowel movement while in the emergency department. She has not had vomiting. She does have nausea when she turns
around consistent with her prior vertigo. She denies having any chest pain. She denies feeling dizzy or lightheaded. She has not had any fevers or chills. She denies any cough.
On arrival in the emergency department she was afebrile. Saturation was initially 89% on room air and now 98% on 2 L. She is tachypneic to 30. Blood pressure was stable at 132/60. Pulse rate is 100.
CBC shows a white count of 5.4 hemoglobin 8.7 and platelet count 1 4123 which is similar to prior. Electrolytes are stable. BUN/creatinine unchanged from prior at 30 and 1.9 with a normal glucose. Lactic acid is 1.0. LFTs are slightly abnormal
but similar to recent priors. Lipase is negative. A CT of the abdomen pelvis was done without IV or oral contrast She is status post partial bowel obstruction with diffusely fluid-filled and dilated loops of small bowel likely representing an
ileus, small bowel obstruction is less likely on the differential although cannot be excluded. She appears to have infiltrative changes and edema within the mesentery no evidence of free air or pneumatosis of portal venous gas. Mesenteric ischemia
cannot be completely excluded. She now has new metastatic disease since October including multiple large hepatic metastasis, multifocal retroperitoneal and paraesophageal metastasis and lymphadenopathy with partially imaged multifocal pulmonary
nodules in the imaged lung bases.
Medical History
Past Medical History
Past Medical History: Reports Cancer (Multiple myeloma, colon cancer s/p resection) and HTN
Past Surgical History: Reports Bowel Resection and Other (facial)
Social History
Alcohol: None
Drug: None
Personal:
Living: With Family
Family History
Family History: Not pertinent
Allergies / Home Medications
Allergies reflects when Allergies were last updated in [facility].
Home Medications with original date entered in [facility]
Allergy/Medication List:
Allergies
Allergy/AdvReac Type Severity Reaction Status Date / Time
promethazine Allergy Vomiting Verified 06/09/25 14:29
Home Medications
albuterol sulfate 2.5 mg/3 mL (0.083 %) solution for nebulization 2.5 mg inhalation TID shortness of breath/cough 07/19/23
dextromethorphan-guaifenesin 30 mg-600 mg tablet extended [id number] hr (Mucinex DM) 1 tab PO Q12H Congestion 07/19/23
levothyroxine 50 mcg capsule 50 mcg PO DAILY Thyroid 07/19/23
meclizine 12.5 mg tablet 12.5 mg PO PRN PRN positional vertigo 07/19/23
nifedipine 30 mg tablet,extended release 30 mg PO DAILY Blood pressure #30 tabs 07/29/23
Singulair 10 mg PO DAILY Allergies 11/10/24
budesonide 0.5 mg/2 mL suspension for nebulization 0.5 mg inhalation BID SOB/cough 11/10/24
cefdinir 300 mg capsule 300 mg PO BID #6 caps 11/17/24
doxycycline hyclate 100 mg capsule 100 mg PO Q12 #6 caps 11/17/24
sodium bicarbonate 650 mg tablet 650 mg PO BID #20 tabs 11/17/24
Review of Systems
-
Constitutional: Reports No Symptoms
EENT: Reports No Symptoms
Respiratory: Reports No Symptoms
Cardiac: Reports No Symptoms
Abdomen/GI: Reports Abdominal Pain and Nausea
: Reports No Symptoms
Musculoskeletal: Reports No Symptoms
Skin: Reports No Symptoms
Neurological: Reports No Symptoms
Endocrine: Reports No Symptoms
Hematologic/Lymphatic: Reports No Symptoms
Psych: Reports No Symptoms
Physical Exam
Vital Signs
Vital Signs
Temp Pulse Resp BP Pulse Ox
98.2 F 86 36 132/62 95
07/17/25 17:59 07/17/25 19:30 07/17/25 19:30 07/17/25 19:12 07/17/25 20:05
Physical Exam
General: Pain
HEENT: NormoCephalic, Moist mucous membranes, Atraumatic, Hearing Impaired and Oxygen
Respiratory: Clear
Cardiac: S1/S2, Tachycardia and Murmur (3 out of 6 systolic murmur heard throughout the precordium); No Rub
GI: Normal Bowel Sounds, Tender, Distended and Organomegaly
Rectal: Deferred by Provider
Genito-urinary: Deferred by me
Musculoskeletal: No Clubbing, No Cyanosis and No Edema
Skin: No Rash
Neuro: AO x 3 and Nonfocal/grossly intact
Psych: Calm
Laboratory Results
-
07/17/25 19:23
07/17/25 19:23
Laboratory Results
Lactic Acid 1.0 mmol/L (0.7-2.0) 07/17/25 19:44
Total Bilirubin 0.7 mg/dl (0.2-1.3) 07/17/25 19:23
AST 38 U/L (14-36) H 07/17/25 19:23
ALT 35 U/L (0-35) 07/17/25 19:23
Alkaline Phosphatase 210 U/L (38-126) H 07/17/25 19:23
Lipase 104 U/L (23-300) 07/17/25 19:23
Data Reviewed
-
CT Scan: Report Reviewed by me
Lab Data: Labs Reviewed by me
Old Records: Reviewed
Impression/Plan
-
IMPRESSION:
89-year-old past medical history significant for multiple myeloma, history of colon cancer status post resection, CKD stage IV, hypothyroid, asthma and restrictive lung disease with, hypertension presenting to the emergency department with 2 days of
diarrhea and development of severe abdominal pain and distention without vomiting but she does have nausea. Imaging is consistent with ileus versus small bowel obstruction. She is found to have new metastatic lesions including large hepatic
metastasis and multifocal retroperitoneal and paraesophageal metastasis with lymphadenopathy as well as multifocal pulmonary nodules likely also related to mets. He is still having some bowel movement, has active bowel sounds as well as normal
lactic acid levels. Abdomen is tense and distended with moderate tenderness. She has not vomited. She is hemodynamically stable slightly tachypneic likely due to abdominal discomfort.
PLAN:
Small bowel obstruction - likely on basis of adhesions or ileus
- Admit to MedSurg
- N.p.o.
- Antiemetics, pain control
- NG tube to low intermittent suction
- Maintenance fluids
- Discussed extensively with patient and family, if indicated patient is agreeable to surgery at this time and is aware of pulmonary and cardiac risk. She does not have any underlying cardiac disease.
- Discussed metastatic findings with family as well.
- Surgery consulted and notified and will be seen patient in the morning. Did recommend NG tube for now as well with indication for surgery if no improvement.
Metastatic cancer -history of multiple myeloma currently on chemotherapy for that with last chemo on . She has slight pancytopenia. History of colon cancer which now appears to have recurrence with large hepatic and retroperitoneal
metastases
- Continue pain control and antiemetics as above
� Continue acyclovir 200 mg twice daily
� Continue allopurinol
� Will likely need outpatient PET scan which has been scheduled
� Oncology consult
Asthma -slight hypoxia with mild wheezing. She has restrictive lung disease and asthma
- Chest x-ray with NG tube placement
- And nebs as needed for now
� Continue budesonide inhaler
� Continue montelukast
- held lasix for now
DVT prophylaxis�heparin subcu
CODE STATUS�full code for now
[2025-07-17 22:00] VITALS: BP 155/72
[2025-07-17 23:00] VITALS: BP 174/75
[2025-07-17] MEDS: VENTOLIN NEBULES 2.5 MG INH (23:59)
[2025-07-18] MEDS: D5LR 1000 IV ×2 (01:57→21:32)
[2025-07-18 02:08] VITALS: BP 122/65; BMI 19.9
[2025-07-18] MEDS: VENTOLIN NEBULES 2.5 MG INH ×5 (02:22→19:47)
--- NOTE | 2025-07-18 03:01 | W.PN.UPDATE ---
Update Note
Progress Note Update
New onset of fever. Blood culturex2, urinalysis, lactic acid, flu and covid ordered.
-Wbc is 8.9
-Lactic acid is 1.
-Covid &flu are Neg
-urine and blood cultures are pending
[2025-07-18] MEDS: DILAUDID 0.5 MG IV ×2 (03:02→21:50)
[2025-07-18 03:31] LABS: Hematocrit 27.7 % (37.0-47.0); Hemoglobin 8.5 g/dL (12.0-16.0); Mean Corp Hgb Conc. 30.7 g/dL (33.0-37.0); Mean Corpuscular Volume 103.4 fL (81.0-99.0); Platelet Count 109 10^3/uL (130-400); Red Cell Dist. Width 16.3 % (11.5-14.5)
[2025-07-18 03:47] LABS: Blood Urea Nitrogen 33 mg/dl (7-17); Calcium 8.1 mg/dl (8.4-10.2); Carbon Dioxide 24 mmol/L (22-30); Chloride 109 mmol/L (98-107); Estimated Creatinine Clearance 17 ml/min; Glucose 97 mg/dl (70-99); Magnesium 1.9 mg/dl (1.6-2.3); Potassium 4.3 mmol/L (3.5-5.1); Sodium 138 mmol/L (135-145); eGFR 24.93
[2025-07-18 04:03] LABS: COVID-19 Antigen Negative (Negative)
[2025-07-18] MEDS: SYNTHROID 50 MCG PO (06:33)
[2025-07-18] MEDS: HEPARIN 5000 UNITS SC ×2 (06:34→17:25)
[2025-07-18] MEDS: PULMICORT 0.5 MG INH ×2 (07:44→19:47)
[2025-07-18 08:10] VITALS: BP 103/51
[2025-07-18] MEDS: ZOVIRAX 200 MG PO ×2 (08:52→20:27)
[2025-07-18] MEDS: SINGULAIR 10 MG PO (08:53)
[2025-07-18] MEDS: ROCALTROL 0.5 MCG PO (08:56)
[2025-07-18] MEDS: PROCARDIA XL (EXTENDED RELEASE) 30 MG PO (09:00)
--- NOTE | 2025-07-18 09:20 | CON.ONC ---
Consultation
-
Date Consultation Requested: 07/18/25
Date Consultation Performed: 07/18/25
Requesting Provider: Dr. Beard
Performing Provider: Dr. Oliva
Reason for Consultation: h/o myeloma and colon cancer
Impression
Impression
-h/o colon cancer - now w/ increased CEA
-CT findings concerning for colon cancer recurrence - extensive new metastatic disease - pulmonary nodules, hepatic lesions and extensive peritoneal and retroperitoneal lymphadenopathy
-bowel obstruction / ileus
-multiple myeloma - recent lambda light chain progression - w/ transition to CyBorD
-CKD
Plan
Plan
1. H/o colon cancer - now w/ increased CEA and CT findings concerning for colon cancer recurrence w/extensive new metastatic disease - pulmonary nodules, hepatic lesions and extensive peritoneal and retroperitoneal lymphadenopathy
-NGT in place w/ concern for possible bowel obstruction/ ileus
-surgery consulted
-pending clinical improvement - biopsy of hepatic lesion or adenopathy could be considered for definitive pathologic assessment
2. H/o myeloma - lambda light chain predominate - followed by Dr. Wallace
-recent CyBorD - 07/15
-follow CBC
Will continue to follow with you.
Patient History
History of Present Illness
89y/o female seen in oncology consultation today regarding h/o colon cancer s/p resection 2022, as well as, multiple myeloma, currently being followed by Dr. Wallace.
The patient has been undergoing treatment for myeloma for the past 9 months, most recently w/ CyBorD. She was treated this past week.
As part of f/u for her h/o colon malignancy, a CEA was evaluated in May and was found to be markedly elevated at 730. PET/CT imaging was ordered.
Over the past couple days at home, the patient developed intermittent diarrhea as well as abdominal distention, prompting evaluation at the [place] ER last evening. CT imaging in the ER revealed multiple dilated loops of small bowel with
fecal-like contents which may represent an ileus or obstruction, extensive new metastatic disease including new pulmonary nodules, extensive hepatic lesions and extensive peritoneal and retroperitoneal lymphadenopathy was appreciated.
She has been made NPO and NG tube is in place. Surgery has been consulted.
Clinically, she continues to note abdominal discomfort. She had fever to 101.8F, and some nausea. No SOB at rest or chest pain.
Past-Medical/Surgical History
PMH:
colon cancer - stage III - pT3N1 - s/p resection 2022 - declined adjuvant tx
myeloma - lambda light chain predominate - w/ recent light chain progression - current tx - CyBorD - last tx 07/15 -- Dr. Wallace
HTN
asthma
hypothyroid
PSH:
s/p right hemicolectomy
SH: no tobacco, no ETOH
FH: non-contributory
Allergie: promethazine
Patient Medication
�Medication �Instructions �Recorded �Confirmed �Last Taken �Type
albuterol sulfate 2.5 mg/3 mL 2.5 mg inhalation QID shortness of 07/19/23 06/09/25 06/08/25 History
(0.083 %) solution for nebulization breath/cough
levothyroxine 50 mcg capsule 50 mcg PO DAILY Thyroid 07/19/23 06/09/25 06/08/25 History
nifedipine 30 mg tablet,extended 30 mg PO DAILY Blood pressure #30 07/29/23 06/09/25 06/08/25 Rx
release tabs
budesonide 0.5 mg/2 mL suspension 0.5 mg inhalation BID SOB/cough 11/10/24 06/09/25 06/08/25 History
for nebulization
acyclovir 200 mg capsule 200 mg PO BID Infection 06/09/25 06/09/25 06/08/25 History
calcitriol 0.5 mcg capsule 0.5 mcg PO DAILY Supplement 06/09/25 06/09/25 06/08/25 History
montelukast 10 mg tablet 10 mg PO DAILY Allergies 06/09/25 06/09/25 06/08/25 History
allopurinol 100 mg tablet 50 mg (1/2 x 100 mg) PO .twice a 06/11/25 Unknown Rx
week #30 tabs
meclizine 12.5 mg tablet 12.5 mg PO PRN PRN positional 06/11/25 Unknown Rx
vertigo #15 tabs
montelukast 10 mg tablet 10 mg PO DAILY #30 tabs 06/11/25 Unknown Rx
sodium bicarbonate 650 mg tablet 650 mg PO BID #60 tabs 06/11/25 Unknown Rx
Active Medications
Generic Name Dose Route Start Last Admin
Trade Name Freq PRN Reason Stop Dose Admin
Acetaminophen 650 mg 07/18/25 01:27
Acetaminophen 325 Mg Tablet PO 08/15/25 01:26
Q4HPRN PRN
mild pain/HODGE/temp> 100.4F
Acetaminophen 650 mg 07/18/25 01:27
Acetaminophen 650 Mg Rectal Suppository RECTAL 08/15/25 01:26
Q4HPRN PRN
mild pain/HODGE/temp> 100.4F
Acyclovir Sodium 200 mg 07/18/25 08:00 07/18/25 08:52
Acyclovir Sodium 200 Mg Capsule PO 07/28/25 07:59 200 mg
BID LIBORIO Administration
Albuterol Sulfate 2.5 mg 07/18/25 08:00 07/18/25 07:44
Albuterol Nebs 2.5 Mg/3 Ml Ampul INH 2.5 mg
R QID LIBORIO Administration
Protocol
Albuterol Sulfate 2.5 mg 07/18/25 01:54 07/18/25 02:22
Albuterol Nebs 2.5 Mg/3 Ml Ampul INH 2.5 mg
R Q4HPRN PRN Administration
SOB/Wheezing
Protocol
Budesonide 0.5 mg 07/18/25 08:00 07/18/25 07:44
Budesonide (Pulmicort Respules) 0.5 Mg/2 Ml INH 0.5 mg
R BID LIBORIO Administration
Protocol
Calcitriol 0.5 mcg 07/18/25 08:00 07/18/25 08:56
Calcitriol 0.25 Microgram Capsule PO 08/15/25 07:59 0.5 mcg
DAILY LIBORIO Administration
Famotidine 20 mg 07/18/25 22:00
Famotidine 20 Mg/2 Ml Vial IV 08/15/25 21:59
Q48H LIBORIO
Heparin Sodium 5,000 units 07/18/25 06:00 07/18/25 06:34
Heparin 5,000 Units/Ml 1 Ml Vial SC 08/15/25 05:59 5,000 units
Q8 LIBORIO Administration
Hydromorphone HCl 0.5 mg 07/18/25 01:27 07/18/25 03:02
Hydromorphone 0.5 Mg/0.5 Ml Syringe IV 08/01/25 01:26 0.5 mg
Q4HPRN PRN Administration
severe pain
Dextrose/Lactated Ringer's 1,000 mls @ 60 mls/hr 07/18/25 01:27 07/18/25 01:57
D5lr IV 1,000 mls
.[id number] LIBORIO Administration
Levothyroxine Sodium 50 mcg 07/18/25 06:00 07/18/25 06:33
Levothyroxine 50 Mcg Tablet PO 08/15/25 05:59 50 mcg
DAILY @ 0600 LIBORIO Administration
Meclizine HCl 12.5 mg 07/18/25 01:27
Meclizine 12.5 Mg Tablet PO 08/15/25 01:26
DAILYPRN PRN
positional vertigo
Montelukast Sodium 10 mg 07/18/25 08:00 07/18/25 08:53
Montelukast Sodium 10 Mg Tablet PO 08/15/25 07:59 10 mg
DAILY LIBORIO Administration
Nifedipine 30 mg 07/18/25 08:00 07/18/25 09:00
Nifedipine 30 Mg Extended Release Tablet PO 08/15/25 07:59 30 mg
DAILY LIBORIO Administration
Ondansetron HCl 4 mg 07/18/25 01:27
Ondansetron 4 Mg/2 Ml Vial IV 08/15/25 01:26
Q6HPRN PRN
nausea and vomiting
Sodium Chloride 0 flush 07/17/25 23:00
Sodium Chloride 0.9% (Flush) Syringe IV 08/14/25 22:59
PER PROTOCOL LIBORIO
Sodium Chloride 8 ml 07/18/25 22:00
Nss 8 Ml Qhs IV 08/15/25 21:59
Q48H LIBORIO
Sodium Chloride 0 applic 07/18/25 02:47
Wiseman (Sodium Chloride/Aloe Vera) Nasal Gel 14.1 Gm Tube NASAL 08/15/25 02:46
Q2HPRN PRN
nasal dryness
Review of Systems
-
A ROS was performed w/ pertinent findings as per HPI.
Physical Exam
-
General: No Apparent Distress and Appears Chronically Ill
HEENT: Other (NGT in place); Negative Jaundice
Cardiology: Other (tachycardic)
Pulmonary: Clear
GI: Other (some tenderness, distended)
Neurology: Non Focal
Labs
Lab Results
WBC 8.9 10^3/uL (4.8-10.8) 07/18/25 03:16
RBC 2.68 10^6/uL (4.20-5.40) L 07/18/25 03:16
Hgb 8.5 g/dL (12.0-16.0) L 07/18/25 03:16
Hct 27.7 % (37.0-47.0) L 07/18/25 03:16
MCV 103.4 fL (81.0-99.0) H 07/18/25 03:16
MCH 31.7 pg (27.0-31.0) H 07/18/25 03:16
MCHC 30.7 g/dL (33.0-37.0) L 07/18/25 03:16
RDW 16.3 % (11.5-14.5) H 07/18/25 03:16
Plt Count 109 10^3/uL (130-400) L 07/18/25 03:16
MPV 13.0 fL (7.4-10.4) H 07/18/25 03:16
Abs Immat Gran (auto) 0.0 10^3/uL (0-0.05) 07/17/25 19:23
Absolute Neuts (auto) 4.9 10^3/uL (1.4-6.5) 07/17/25 19:23
Absolute Lymphs (auto) 0.1 10^3/uL (1.2-3.4) L 07/17/25 19:23
Absolute Monos (auto) 0.4 10^3/uL (0.1-0.6) 07/17/25 19:23
Absolute Eos (auto) 0.0 10^3/uL (0-0.7) 07/17/25 19:23
Absolute Basos (auto) 0.0 10^3/uL (0-0.2) 07/17/25 19:23
Immature Gran % 0.4 % (0-0.5) 07/17/25 19:23
Neutrophils % 89.7 % (42.2-75.2) H 07/17/25 19:23
Lymphocytes % 1.6 % (20.5-51.1) L 07/17/25 19:23
Monocytes % 7.7 % (1.7-9.3) 07/17/25 19:23
Eosinophils % 0.2 % (0-6) 07/17/25 19:23
Basophils % 0.4 % (0-2) 07/17/25 19:23
Creatinine 1.9 mg/dL (0.6-1.0) H 07/18/25 03:16
Vital Signs
Vital Signs
Temp Pulse Resp BP Pulse Ox
97.5 F 100 18 103/51 95
07/18/25 08:10 07/18/25 08:10 07/18/25 08:10 07/18/25 08:10 07/18/25 08:10
--- NOTE | 2025-07-18 12:02 | W.PN.HOSP.TC ---
Today's Communication/Plan
-
see note
Assessment / Plan
Assessment / Plan
CT a/p
There are multiple dilated loops of small bowel with fecal-like contents which may represent an ileus or obstruction.
There is extensive new metastatic disease including new pulmonary nodules, extensive hepatic lesions and extensive peritoneal and retroperitoneal lymphadenopathy.
Small volume perihepatic free fluid as well as small volume pelvic ascites.
Bilateral mildly hyperdense renal lesions measuring up to 1.4 cm on the left and 1.3 cm on the right. Recent prior renal ultrasound demonstrated a complex cyst in the lower pole the right kidney.
Small hiatal hernia.
Cholelithiasis. The gallbladder appears mildly distended. Consider further evaluation with dedicated ultrasound if there is concern for acute cholecystitis.
1. Partial small bowel obstruction
History of colon cancer status post bowel resection
- Patient presented with new onset of abdominal pain. Some questionable nausea no reported vomiting.
- CT abdomen pelvis done in ER showing signs of possible ileus versus small bowel obstruction.
- Patient history of colon cancer and resection and last CEA check on June 16 was 730. one before that in November 17 was 2.3
- In light of abdominal finding patient currently have NG tube in place on low suction
- Maintain patient on symptomatic care with antiemetics
- General Surgery has been involved in care for further evaluation
2. Suspected colon cancer recurrence with metastatic disease
- CTAP showing multiple new pulmonary nodules and extensive hepatic lesion with peritoneal and retroperitoneal lymphadenopathy
- CEA level has been elevated to 730, which was 2.3 earlier in the year
- Oncology evaluated considering for possible need of hepatic lesion or lymph node biopsy for confirmation of cancer recurrence/metastatic disease
- Patient was planned to have an outpatient PET scan as well
3. Multiple myeloma
- Lambda chain predominant
- Patient got recent cyclophosphamide/bortezomib/dexamethasone round on 07/15
- Monitor hemoglobin/WBC/renal function
4. CKD stage IV
- Creatinine close to baseline of 1.9 with GFR of 25
- Avoid nephrotoxic medication as possible
- CT abdomen on admission without IV contrast.
5. Elevated liver enzymes
- Minimal elevation of AST/ALP, related to involvement from metastatic disease?
6. Essential hypertension
- Maintained on Procardia 30mg/d
7. Hypothyroidism
- maintain on levothyroxine 50mcg/d
DVT PPX -scd
Full code
Patient at high risk of further complication of bowel obstruction, abdominal pain requiring IV medication, risk of nausea vomiting and aspiration.
Patient is overall frail with likely underlying cancer reoccurrence and on chemotherapy for MM.
Anticipated Discharge: > 48 hours
Subjective/Interval History
-
Date of Service: July 18, 2025
Objective Data
-
Labs:
Laboratory Results
07/18/25
03:16
WBC 8.9
Hgb 8.5 L
Hct 27.7 L
Plt Count 109 L
Sodium 138
Potassium 4.3
Chloride 109 H
Carbon Dioxide 24
BUN 33 H
Creatinine 1.9 H
Glucose 97
Calcium 8.1 L
Vital Signs:
Vital Signs
Temp Pulse Resp BP Pulse Ox
97.5 F 88 16 103/51 97
07/18/25 08:10 07/18/25 11:24 07/18/25 11:24 07/18/25 08:10 07/18/25 11:24
--- NOTE | 2025-07-18 12:21 | CM ---
CM reviewed chart. Met with pt at bedside. Explained role and discussed anticipated dc plan/options.
Pt with NGT currently in place for SBO.
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 Lives with and adult son.
Lives in 2story w/FF up to full BB. Can have 1st fl set up, if needed at dc.
Would be agreeable to HC for SN and possible PT if rec'd at dc. No preference in agency.
Family to transport when stable.
[facility]
[address]
[place]
[phone]
CM/SW will continue to follow to ensure a safe and timely discharge.
--- NOTE | 2025-07-18 13:56 | CON.CRS ---
Consultation
-
Date/Time Consultation Requested: 07/18/2025, 0300
Date/Time Consultation Performed: 07/18/2025, 12:12
Requesting Provider: Dr. Rojas
Performing Provider: Stephan Gayle MD
Reason for Consultation: SBO
Medical History
-
Chief Complaint: Abdominal pain
History of Present Illness:
89-year-old female with a past medical history of hepatic flexure cancer status post colectomy by Dr. Kumar 06/2023, presents to the ER due to abdominal pain. The patient underwent successful right colectomy 2 years ago and then followed up with
Dr. Kumar in the office. At that time her CEA was 1.54. It was recommended she undergo chemotherapy but she was not interested at that time. Currently she is undergoing chemotherapy for multiple myeloma and her last treatment was a few days ago.
She now presents due to abdominal pain 'all over'. This started about 2 days ago and has been worsening. She had some diarrhea when this initially started but she has not had any gas or bowel movement since 2 days ago. Denies any blood in her
stool. Denies nausea or vomiting. She is urinate without difficulty. Denies pain in her urine. In the ER her WBC was 5.5 and is 8.9 this morning. Her temperature yesterday was 101.8 but that has resolved. She was intermittently tacky but she
is normal sinus rhythm this morning. Her blood pressure has remained stable. CT of the abdomen and pelvis shows multiple dilated loops of small bowel with fecal like contents that may represent ileus or obstruction. There is also new extensive
metastatic disease including pulmonary nodules, extensive hepatic lesions, and extensive peritoneal and retroperitoneal lymphadenopathy.
Past Medical History
Past Medical History: Other (colon cancer, asthma, chronic vertigo, hypertension CKD stage IV, restrictive lung disease and hypothyroid )
Past Surgical History: Appendectomy, Bowel Resection (06/2023- Dr. Kumar) and Other (right ovary removal at 19 yo)
Social History
Tobacco: Non-Smoker
Alcohol: None
Drug: None
Living: With Family
Family History
Family History: Reviewed & Not Pertinent
Allergies / Home Medications
Allergy/AdvReac Type Severity Reaction Status Date / Time
promethazine Allergy Vomiting Verified 07/17/25 17:59
�Medication �Instructions �Recorded �Confirmed �Type
albuterol sulfate 2.5 mg/3 mL 2.5 mg inhalation QID shortness of 07/19/23 06/09/25 History
(0.083 %) solution for nebulization breath/cough
levothyroxine 50 mcg capsule 50 mcg PO DAILY Thyroid 07/19/23 06/09/25 History
nifedipine 30 mg tablet,extended 30 mg PO DAILY Blood pressure #30 07/29/23 06/09/25 Rx
release tabs
budesonide 0.5 mg/2 mL suspension 0.5 mg inhalation BID SOB/cough 11/10/24 06/09/25 History
for nebulization
acyclovir 200 mg capsule 200 mg PO BID Infection 06/09/25 06/09/25 History
calcitriol 0.5 mcg capsule 0.5 mcg PO DAILY Supplement 06/09/25 06/09/25 History
montelukast 10 mg tablet 10 mg PO DAILY Allergies 06/09/25 06/09/25 History
allopurinol 100 mg tablet 50 mg (1/2 x 100 mg) PO .twice a 06/11/25 Rx
week #30 tabs
meclizine 12.5 mg tablet 12.5 mg PO PRN PRN positional 06/11/25 Rx
vertigo #15 tabs
montelukast 10 mg tablet 10 mg PO DAILY #30 tabs 06/11/25 Rx
sodium bicarbonate 650 mg tablet 650 mg PO BID #60 tabs 06/11/25 Rx
Review of Systems
-
History Source: Patient
Abdomen/GI: Abdominal Pain and Diarrhea
A 10 point review of systems was completed, and was negative except as per HPI.
Physical Exam
Vital Signs
Temp 97.5 F 07/18/25 08:10
Pulse 88 07/18/25 11:24
Resp Rate 16 07/18/25 11:24
Blood pressure 103/51 07/18/25 08:10
SaO2 97 07/18/25 11:24
07/17/25 07/18/25 07/19/25
06:59 06:59 06:59
Actual Weight 52.481 kg
Body Mass Index (BMI) 19.9
Lab Results / Allergies
07/18/25 03:16
07/18/25 03:16
WBC 8.9 10^3/uL (4.8-10.8) 07/18/25 03:16
Hgb 8.5 g/dL (12.0-16.0) L 07/18/25 03:16
Hct 27.7 % (37.0-47.0) L 07/18/25 03:16
Plt Count 109 10^3/uL (130-400) L 07/18/25 03:16
Abs Immat Gran (auto) 0.0 10^3/uL (0-0.05) 07/17/25 19:23
Neutrophils % 89.7 % (42.2-75.2) H 07/17/25 19:23
Allergy/AdvReac Type Severity Reaction Status Date / Time
promethazine Allergy Vomiting Verified 07/17/25 17:59
Physical Exam
General: Well Developed, Well Nourished and No Apparent Distress
GI: Tender (throughout) and Distended
Neuro: AO x 3
Psych: Calm
Data Reviewed
-
CT Scan: Image Personally Visualized and interpreted, Report Reviewed by me and Discussed with Patient
Labs: Labs Reviewed by me, Discussed with Physician and Discussed with Patient
Old Records: Reviewed
Assessment / Plan
-
Assessment: 89-year-old female with a history of hepatic flexure colon cancer 2 years ago and current multiple myeloma on chemo, presents to the ER with abdominal pain and loose stools, found to have new extensive metastatic disease as well as ileus
versus small bowel obstruction
Plan:
- Dr. Gayle discussed with patient at bedside that surgery would be a tough situation given her current comorbidities as well as new metastatic disease
- Maintain IV fluids and n.p.o.
- NG tube with no output since insertion, will have nurse advance and check abdominal x-ray
Appreciate hospitalist/oncology
[2025-07-18 16:03] VITALS: BP 98/51
--- NOTE | 2025-07-18 19:42 | W.PN.UPDATE ---
Update Note
Progress Note Update
Zosyn added as recommended by the covering hospitalist.
[2025-07-18] MEDS: ZOSYN 50 IV (20:27)
[2025-07-18] MEDS: PEPCID 20 MG IV (21:32)
[2025-07-18] MEDS: NSS (PRESERVATIVE FREE) 8 ML IV (21:32)
[2025-07-18 23:49] VITALS: BP 105/57
[2025-07-19] MEDS: HEPARIN SC (02:31)
[2025-07-19] MEDS: ZOSYN 50 IV ×3 (03:15→20:44)
[2025-07-19] MEDS: SYNTHROID 50 MCG PO (05:45)
[2025-07-19 07:58] VITALS: BP 120/75
[2025-07-19] MEDS: ROCALTROL 0.5 MCG PO (08:15)
[2025-07-19] MEDS: SINGULAIR 10 MG PO (08:15)
[2025-07-19] MEDS: HEPARIN 5000 UNITS SC ×3 (08:15→23:14)
[2025-07-19] MEDS: PROCARDIA XL (EXTENDED RELEASE) 30 MG PO (08:15)
[2025-07-19] MEDS: VENTOLIN NEBULES 2.5 MG INH ×4 (08:16→19:43)
[2025-07-19] MEDS: PULMICORT 0.5 MG INH ×2 (08:16→19:43)
[2025-07-19] MEDS: ZOVIRAX 200 MG PO ×2 (08:20→20:45)
[2025-07-19 08:54] LABS: Hematocrit 25.9 % (37.0-47.0); Hemoglobin 8.2 g/dL (12.0-16.0); Mean Corp Hgb Conc. 31.7 g/dL (33.0-37.0); Mean Corpuscular Volume 100.4 fL (81.0-99.0); Platelet Count 104 10^3/uL (130-400); Red Cell Dist. Width 16.2 % (11.5-14.5)
[2025-07-19 09:22] LABS: Blood Urea Nitrogen 38 mg/dl (7-17); Calcium 7.9 mg/dl (8.4-10.2); Carbon Dioxide 27 mmol/L (22-30); Chloride 107 mmol/L (98-107); Estimated Creatinine Clearance 16 ml/min; Glucose 92 mg/dl (70-99); Potassium 4.6 mmol/L (3.5-5.1); Sodium 136 mmol/L (135-145); eGFR 23.44
--- NOTE | 2025-07-19 09:56 | W.PN.CRS1 ---
Today's Communication / Plan
-
maintain ngt
await bowel function
Assessment/Plan
-
Assessment: 89-year-old female with a history of hepatic flexure colon cancer 2 years ago and current multiple myeloma on chemo, presents to the ER with abdominal pain and loose stools, found to have new extensive metastatic disease as well as a
likely ileus
no labs today
vitals normal
NGT: 175ml
Plan:
- Dr. Gayle discussed with patient at bedside that surgery would be a tough situation given her current comorbidities as well as new metastatic disease
- Maintain IV fluids and n.p.o. Await bowel function.
- Continue NGT
- Heparin sq for DVT prophylaxis
- Appreciate hospitalist/oncology
- Pain control
Subjective Data
Subjective Data
Date of Service: July 19, 2025
Patient states she has no nausea or vomiting. She had a minor amount of stool this morning. She has no flatus. Her pain is the same as yesterday.
Objective Data
-
Vital Signs
Temp Pulse Resp BP Pulse Ox
98.7 F 94 18 120/75 97
07/19/25 07:58 07/19/25 07:58 07/19/25 07:58 07/19/25 07:58 07/19/25 07:58
Intake & Output
07/18/25 07/19/25 07/20/25
06:59 06:59 06:59
Intake Total 90 / 90
Output Total 175 / 175
Balance -85 / -85
Intake:
Amount instilled into GI Tube ( 90 / 90
Total)
Milton Sump 90 / 90
Output:
Gastrointestinal tube output ( 175 / 175
Total)
Milton Sump 175 / 175
Other:
How many times incontinent 3
SATURATED amount urine
Number of approximated MODERATE 1
amounts of urine
Lab Results
07/19/25 08:38
07/19/25 08:38
Physical Exam
-
General: No Acute Distress and AOx3
Abdomen: Soft, Distended (mild) and Tender (mild throughout)
Skin: Warm and Dry
--- NOTE | 2025-07-19 12:37 | W.PN.ONC2 ---
Today's Communication / Plan
-
Pt wants NGT out.
Discussed difficulty inherent in treating multiple myeloma and colon cancer concurrently and 89-year-old.
Suspect she will not be able to tolerate dual therapy.
With recent symptomatic myeloma progression, not feasible to stop multiple myeloma treatment in favor of treating the metastatic colon cancer.
Suspect she will be best served by best supportive care or hospice.
I had this conversation with patient and her 2 daughters, but her son and were not present.
I am happy to tyonek back early evening today to continue the conversation if needed.
Impression
Impression
-h/o colon cancer - now w/ increased CEA
-CT findings concerning for colon cancer recurrence - extensive new metastatic disease - hepatic lesions and extensive peritoneal and retroperitoneal lymphadenopathy
-bowel obstruction / ileus
-multiple myeloma - recent lambda light chain progression - w/ transition to CyBorD
-CKD
Plan
Plan
1. H/o colon cancer - now w/ increased CEA and CT findings concerning for colon cancer recurrence w/extensive new metastatic disease - pulmonary nodules, hepatic lesions and extensive peritoneal and retroperitoneal lymphadenopathy
-NGT in place w/ concern for possible bowel obstruction/ ileus
-surgery consulted
-pending clinical improvement - biopsy of hepatic lesion or adenopathy could be considered for definitive pathologic assessment
2. H/o myeloma - lambda light chain predominate - followed by Dr. Wallace
-recent CyBorD - 07/15
-follow CBC
Will continue to follow with you.
Subjective/Objective
Chief Complaint
Heme/Onc follow-up of multiple myeloma and probable colon cancer with metastatic recurrence in liver
Subjective
Patient miserable with NG tube in place. She passed a large amount of flatus earlier today and had 2 small bowel movements.
Vital Signs:
Vital Signs
Temp Pulse Resp BP Pulse Ox
98.7 F 93 20 120/75 97
07/19/25 07:58 07/19/25 11:45 07/19/25 11:45 07/19/25 07:58 07/19/25 11:45
Lab Results:
Laboratory Data
WBC 11.9 10^3/uL (4.8-10.8) H 07/19/25 08:38
Hgb 8.2 g/dL (12.0-16.0) L 07/19/25 08:38
Plt Count 104 10^3/uL (130-400) L 07/19/25 08:38
eGFR 23.44 07/19/25 08:38
Physical Exam
Awake, alert, appears fatigued but nontoxic
NG tube in place, drainage canister empty
Bowel sounds hypoactive but present
Abdomen distended and tender
--- NOTE | 2025-07-19 14:17 | W.PN.HOSP.TC ---
Today's Communication/Plan
-
see note
Assessment / Plan
Assessment / Plan
CT a/p
There are multiple dilated loops of small bowel with fecal-like contents which may represent an ileus or obstruction.
There is extensive new metastatic disease including new pulmonary nodules, extensive hepatic lesions and extensive peritoneal and retroperitoneal lymphadenopathy.
Small volume perihepatic free fluid as well as small volume pelvic ascites.
Bilateral mildly hyperdense renal lesions measuring up to 1.4 cm on the left and 1.3 cm on the right. Recent prior renal ultrasound demonstrated a complex cyst in the lower pole the right kidney.
Small hiatal hernia.
Cholelithiasis. The gallbladder appears mildly distended. Consider further evaluation with dedicated ultrasound if there is concern for acute cholecystitis.
1. Ileus
History of colon cancer status post bowel resection
- Patient presented with new onset of abdominal pain. Some questionable nausea no reported vomiting.
- CT abdomen pelvis done in ER showing signs of possible ileus versus small bowel obstruction.
- Patient history of colon cancer and resection and last CEA check on June 16 was 730. one before that in November 17 was 2.3
- NGT output of 175mls over last 24hrs
- Maintain patient on symptomatic care with antiemetics
- General Surgery evaluated and patient not a candidate for surgery due to increased risk. Conservative management is recommended.
2. Suspected colon cancer recurrence with metastatic disease
- CTAP showing multiple new pulmonary nodules and extensive hepatic lesion with peritoneal and retroperitoneal lymphadenopathy
- CEA level has been elevated to 730, which was 2.3 earlier in the year
- Oncology evaluated considering for possible need of hepatic lesion or lymph node biopsy for confirmation of cancer recurrence/metastatic disease
- Patient was planned to have an outpatient PET scan as well
3. Multiple myeloma
- Lambda chain predominant
- Patient got recent cyclophosphamide/bortezomib/dexamethasone round on 07/15
- Monitor hemoglobin/WBC/renal function
4. CKD stage IV
- Creatinine close to baseline of 1.9 with GFR of 25
- Avoid nephrotoxic medication as possible
- CT abdomen on admission without IV contrast.
5. Elevated liver enzymes
- Minimal elevation of AST/ALP, related to involvement from metastatic disease?
6. Essential hypertension
- Maintained on Procardia 30mg/d
7. Hypothyroidism
- maintain on levothyroxine 50mcg/d
DVT PPX -scd
Full code
Patient at high risk of further complication of bowel obstruction, abdominal pain requiring IV medication, risk of nausea vomiting and aspiration.
Patient is overall frail with underlying colon cancer reoccurrence and on chemotherapy for MM.
07/19 oncology evaluated patient and discussed poor prognosis for patient. Recommended possible palliative care versus hospice. No decision has been made and oncology planning to continue discussion with family regarding GOC.
Anticipated Discharge: 24 - 48 hours
Subjective/Interval History
-
Date of Service: July 19, 2025
Continues with some abdominal distention
NG tube in place with minimal drainage
Able to pass bowel movement
Objective Data
-
Labs:
Laboratory Results
07/19/25
08:38
WBC 11.9 H
Hgb 8.2 L
Hct 25.9 L
Plt Count 104 L
Sodium 136
Potassium 4.6
Chloride 107
Carbon Dioxide 27
BUN 38 H
Creatinine 2.0 H
Glucose 92
Calcium 7.9 L
Vital Signs:
Vital Signs
Temp Pulse Resp BP Pulse Ox
98.7 F 93 20 120/75 97
07/19/25 07:58 07/19/25 11:45 07/19/25 11:45 07/19/25 07:58 07/19/25 11:45
I&O
07/18/25 07/19/25 07/20/25
06:59 06:59 06:59
Intake Total 90 / 90
Output Total 175 / 175
Balance -85 / -85
Review of Systems
-
Cardiac: Reports No Symptoms
Abdomen/GI: Reports Abdominal Pain; Denies Nausea or Vomiting
Physical Exam
-
General: No Apparent Distress
HEENT: Oxygen (3 LNC)
Respiratory: Rhonchi; Negative Wheezes
Cardiac: Regular Rhythm and S1/S2; Negative Murmur
GI: Soft and Distended; Negative Normal Bowel Sounds
Neuro: Awake, Alert and No Motor Deficits
[2025-07-19] MEDS: HURRICAINE SPRAY 1 APPLIC TOPICAL (14:25)
--- NOTE | 2025-07-19 15:47 | CM ---
CM reviewed chart- ADC 1-2 days
Discussion with nursing- she is a 1 person assist bedside and typically indep
TT/attending requesting PT/OT evals once appropriate
Onc following and ongoing GOC discussion, NGT remains and conservative management for ileus currently
Discharge Disposition- TBD ongoing GOC discussions
[2025-07-19 16:01] VITALS: BP 108/64
[2025-07-19] MEDS: D5LR 1000 IV (16:05)
[2025-07-19 23:18] VITALS: BP 104/55
[2025-07-20] MEDS: VENTOLIN NEBULES 2.5 MG INH ×5 (04:53→19:38)
[2025-07-20] MEDS: D5LR 1000 IV (05:13)
[2025-07-20] MEDS: ZOSYN 50 IV ×3 (05:14→20:50)
[2025-07-20] MEDS: SYNTHROID 50 MCG PO (05:15)
[2025-07-20 06:24] LABS: Hematocrit 24.4 % (37.0-47.0); Hemoglobin 7.7 g/dL (12.0-16.0); Mean Corp Hgb Conc. 31.6 g/dL (33.0-37.0); Mean Corpuscular Volume 99.2 fL (81.0-99.0); Platelet Count 99 10^3/uL (130-400); Red Cell Dist. Width 16.2 % (11.5-14.5)
[2025-07-20 07:09] LABS: Blood Urea Nitrogen 31 mg/dl (7-17); Calcium 7.2 mg/dl (8.4-10.2); Carbon Dioxide 25 mmol/L (22-30); Chloride 109 mmol/L (98-107); Estimated Creatinine Clearance 18 ml/min; Glucose 100 mg/dl (70-99); Potassium 3.8 mmol/L (3.5-5.1); Sodium 137 mmol/L (135-145); eGFR 26.60
[2025-07-20 07:14] VITALS: BP 116/57
[2025-07-20] MEDS: PULMICORT 0.5 MG INH ×2 (07:23→19:38)
[2025-07-20] MEDS: HURRICAINE SPRAY 1 APPLIC TOPICAL (08:18)
[2025-07-20] MEDS: HEPARIN 5000 UNITS SC ×2 (08:18→15:23)
[2025-07-20] MEDS: PROCARDIA XL (EXTENDED RELEASE) PO (08:23)
[2025-07-20] MEDS: ZOVIRAX PO (08:24)
[2025-07-20] MEDS: SINGULAIR PO (08:24)
[2025-07-20] MEDS: ROCALTROL PO (08:24)
--- NOTE | 2025-07-20 10:29 | W.PN.CRS1 ---
Today's Communication / Plan
-
ngt removed
clears
patient wishing to go home
Assessment/Plan
-
Assessment: 89-year-old female with a history of hepatic flexure colon cancer 2 years ago and current multiple myeloma on chemo, presents to the ER with abdominal pain and loose stools, found to have new extensive metastatic disease as well as a
likely ileus
Vitals normal
NGT: 220ml
WBC: 11.0 (11.9), Hgb 7.7 (8.2)
Plan:
- NGT removed at bedside
- Start clears
- Patient conveyed she does not want to be treated medically and would prefer to go home. I discussed this with Dr. Del Castillo.
- Heparin sq for DVT prophylaxis
- Appreciate hospitalist/oncology
- Pain control
Subjective Data
Subjective Data
Date of Service: July 20, 2025
Patient states she 'does not want to do this anymore'. She wants the NGT out. She would like to go home. She does not want any further treatment for her condition.
Objective Data
-
Vital Signs
Temp Pulse Resp BP Pulse Ox
97.7 F 78 22 116/57 97
07/20/25 07:14 07/20/25 07:28 07/20/25 07:28 07/20/25 07:14 07/20/25 07:28
Intake & Output
07/19/25 07/20/25 07/21/25
06:59 06:59 06:59
Intake Total 90 / 90 960 / 960
Output Total 175 / 175 220 / 220
Balance -85 / -85 740 / 740
Intake:
Oral fluids 40 / 40
IV fluids (Total) 720 / 720
IV piggybacks 50 / 50
Amount instilled into GI Tube ( 90 / 90 150 / 150
Total)
Dent Sump 90 / 90 150 / 150
Output:
Gastrointestinal tube output ( 175 / 175 220 / 220
Total)
Dent Sump 175 / 175 220 / 220
Other:
How many times incontinent 2
MODERATE amount urine
Number of approximated SMALL 1
amounts of urine
Number of approximated MODERATE 1 2
amounts of urine
Lab Results
07/20/25 06:02
07/20/25 06:02
Physical Exam
-
General: No Acute Distress and AOx3
Abdomen: Soft, Distended and Other (deferred on palpating due to patient's request)
Skin: Warm and Dry
[2025-07-20 12:58] VITALS: BP 143/73; PULSE 85; O2SAT 92
[2025-07-20 13:01] VITALS: BP 143/73; O2SAT 93
--- NOTE | 2025-07-20 13:07 | W.PN.HOSP.TC ---
Today's Communication/Plan
-
see note
discharge planning for hospice
Assessment / Plan
Assessment / Plan
CT a/p
There are multiple dilated loops of small bowel with fecal-like contents which may represent an ileus or obstruction.
There is extensive new metastatic disease including new pulmonary nodules, extensive hepatic lesions and extensive peritoneal and retroperitoneal lymphadenopathy.
Small volume perihepatic free fluid as well as small volume pelvic ascites.
Bilateral mildly hyperdense renal lesions measuring up to 1.4 cm on the left and 1.3 cm on the right. Recent prior renal ultrasound demonstrated a complex cyst in the lower pole the right kidney.
Small hiatal hernia.
Cholelithiasis. The gallbladder appears mildly distended. Consider further evaluation with dedicated ultrasound if there is concern for acute cholecystitis.
1. Ileus
History of colon cancer status post bowel resection
- Patient presented with new onset of abdominal pain. Some questionable nausea no reported vomiting.
- CT abdomen pelvis done in ER showing signs of possible ileus versus small bowel obstruction.
- Patient history of colon cancer and resection and last CEA check on June 16 was 730. one before that in November 17 was 2.3
- Maintain patient on symptomatic care with antiemetics
- General Surgery evaluated and patient not a candidate for surgery due to increased risk. Conservative management is recommended.
- Patient able to pass some gas and having small liquid stools in the morning. Abdominal examination still remain somewhat equivocal distention/minimal tenderness and tympanic bowel sounds
- NG tube has been pulled out at this stage
- Patient has been started on clear liquid diet
2. Suspected colon cancer recurrence with metastatic disease
- CTAP showing multiple new pulmonary nodules and extensive hepatic lesion with peritoneal and retroperitoneal lymphadenopathy
- CEA level has been elevated to 730, which was 2.3 earlier in the year
- Oncology evaluated considering for possible need of hepatic lesion or lymph node biopsy for confirmation of cancer recurrence/metastatic disease
- Patient was planned to have an outpatient PET scan as well
3. Multiple myeloma
- Lambda chain predominant
- Patient got recent cyclophosphamide/bortezomib/dexamethasone round on 07/15
- Monitor hemoglobin/WBC/renal function
4. CKD stage IV
- Creatinine close to baseline of 1.9 with GFR of 25
- Avoid nephrotoxic medication as possible
- CT abdomen on admission without IV contrast.
5. Elevated liver enzymes
- Minimal elevation of AST/ALP, related to involvement from metastatic disease?
6. Essential hypertension
- Maintained on Procardia 30mg/d
7. Hypothyroidism
- maintain on levothyroxine 50mcg/d
DVT PPX -scd
Full code
Patient at high risk of further complication of bowel obstruction, abdominal pain requiring IV medication, risk of nausea vomiting and aspiration.
Patient is overall frail with underlying colon cancer reoccurrence and on chemotherapy for MM.
07/19 oncology evaluated patient and discussed poor prognosis for patient. Recommended possible palliative care versus hospice. No decision has been made and oncology planning to continue discussion with family regarding GOC.
07/20 patient family opted for hospice care. Will require PT evaluation and appropriate level of care for patient to get hospice care. Case management aware
Anticipated Discharge: Within 24 hours
Subjective/Interval History
-
Date of Service: July 20, 2025
Able to pass some gas and having some diarrhea
no nausea/vomiting
not voicing any other issues
Objective Data
-
Labs:
Laboratory Results
07/20/25
06:02
WBC 11.0 H
Hgb 7.7 L
Hct 24.4 L
Plt Count 99 L
Sodium 137
Potassium 3.8
Chloride 109 H
Carbon Dioxide 25
BUN 31 H
Creatinine 1.8 H
Glucose 100 H
Calcium 7.2 L
Vital Signs:
Vital Signs
Temp Pulse Resp BP Pulse Ox
97.7 F 84 20 116/57 95
07/20/25 07:14 07/20/25 11:10 07/20/25 11:10 07/20/25 07:14 07/20/25 11:35
I&O
07/19/25 07/20/25 07/21/25
06:59 06:59 06:59
Intake Total 90 / 90 960 / 960
Output Total 175 / 175 220 / 220
Balance -85 / -85 740 / 740
Review of Systems
-
Respiratory: Reports No Symptoms
Cardiac: Reports No Symptoms
Abdomen/GI: Reports No Symptoms
Physical Exam
-
General: No Apparent Distress; Negative Cachectic
HEENT: Oxygen (3 LNC)
GI: Tender (minimal) and Distended; Negative Normal Bowel Sounds (Tympanic bowel sound)
Neuro: Awake, Alert and No Motor Deficits
[2025-07-20 15:08] VITALS: BP 129/66
--- NOTE | 2025-07-20 15:50 | CM ---
CM reviewed pt with attending- hospice consult noted
Bedside meeting with pt, spouse, son and daughter
General info regarding hospice provided including private pay costs for [employer] and SNF room and board
STR also discussed as well as role of [employer] in prior auth process
Referral sent to Hospice per request for info at this time
Pt will likely need SNF placement as spouse unable to manage pt at home if hospice on dc
PAC provided- awaiting SNF choices
Plan for hospice meeting with pt and family tomorrow at 1100
Discharge Disposition- ongoing GOC, SNF STR vs hospice
--- NOTE | 2025-07-20 19:28 | HOSPNOTE ---
Hospice referral received will meet with patient and family 07/21 at 11 am.
[2025-07-20] MEDS: NSS (PRESERVATIVE FREE) 8 ML IV (20:51)
[2025-07-20] MEDS: ZOVIRAX 200 MG PO (20:51)
[2025-07-20] MEDS: PEPCID 20 MG IV (20:51)
[2025-07-20] MEDS: TYLENOL 650 MG PO (22:08)
[2025-07-21 00:01] VITALS: BP 126/82
[2025-07-21] MEDS: HEPARIN SC ×2 (01:10→10:46)
[2025-07-21] MEDS: VENTOLIN NEBULES 2.5 MG INH ×3 (03:16→11:07)
[2025-07-21] MEDS: ZOSYN 50 IV ×2 (04:12→11:35)
[2025-07-21] MEDS: SYNTHROID 50 MCG PO (04:58)
[2025-07-21 07:00] VITALS: BP 146/71
[2025-07-21 07:27] LABS: Hematocrit 24.6 % (37.0-47.0); Hemoglobin 7.9 g/dL (12.0-16.0); Mean Corp Hgb Conc. 32.1 g/dL (33.0-37.0); Mean Corpuscular Volume 98.8 fL (81.0-99.0); Platelet Count 95 10^3/uL (130-400); Red Cell Dist. Width 16.3 % (11.5-14.5)
[2025-07-21] MEDS: PULMICORT 0.5 MG INH (07:31)
[2025-07-21 08:09] LABS: Blood Urea Nitrogen 21 mg/dl (7-17); Calcium 7.4 mg/dl (8.4-10.2); Carbon Dioxide 22 mmol/L (22-30); Chloride 110 mmol/L (98-107); Estimated Creatinine Clearance 19 ml/min; Glucose 73 mg/dl (70-99); Potassium 4.0 mmol/L (3.5-5.1); Sodium 137 mmol/L (135-145); eGFR 28.49
[2025-07-21 08:31] LABS: Glucose - Point of Care 75 mg/dl (70-99)
[2025-07-21] MEDS: PROCARDIA XL (EXTENDED RELEASE) 30 MG PO (10:33)
[2025-07-21] MEDS: ROCALTROL 0.5 MCG PO (10:34)
[2025-07-21] MEDS: SINGULAIR 10 MG PO (10:34)
[2025-07-21] MEDS: ZOVIRAX 200 MG PO (10:34)
--- NOTE | 2025-07-21 11:23 | W.PN.HOSP.TC ---
Today's Communication/Plan
-
hospice evaluation
IV morphine/lasix ordered to help with dyspnea
Assessment / Plan
Assessment / Plan
CT a/p
There are multiple dilated loops of small bowel with fecal-like contents which may represent an ileus or obstruction.
There is extensive new metastatic disease including new pulmonary nodules, extensive hepatic lesions and extensive peritoneal and retroperitoneal lymphadenopathy.
Small volume perihepatic free fluid as well as small volume pelvic ascites.
Bilateral mildly hyperdense renal lesions measuring up to 1.4 cm on the left and 1.3 cm on the right. Recent prior renal ultrasound demonstrated a complex cyst in the lower pole the right kidney.
Small hiatal hernia.
Cholelithiasis. The gallbladder appears mildly distended. Consider further evaluation with dedicated ultrasound if there is concern for acute cholecystitis.
1. Ileus
History of colon cancer status post bowel resection
- Patient presented with new onset of abdominal pain. Some questionable nausea no reported vomiting.
- CT abdomen pelvis done in ER showing signs of possible ileus versus small bowel obstruction.
- Patient history of colon cancer and resection and last CEA check on June 16 was 730. one before that in November 17 was 2.3
- Maintain patient on symptomatic care with antiemetics
- General Surgery evaluated and patient not a candidate for surgery due to increased risk. Conservative management is recommended.
- NG tube has been pulled out at this stage
- Patient has been started on clear liquid diet
- Patient has been able to have some liquid bowel movement yesterday, continues to have abdominal pain/distention
2. Suspected colon cancer recurrence with metastatic disease
- CTAP showing multiple new pulmonary nodules and extensive hepatic lesion with peritoneal and retroperitoneal lymphadenopathy
- CEA level has been elevated to 730, which was 2.3 earlier in the year
- Oncology evaluated and have recommended for patient to be transition to hospice care as patient have dual cancer diagnosis at this point.
3. Multiple myeloma
- Lambda chain predominant
- Patient got recent cyclophosphamide/bortezomib/dexamethasone round on 07/15
- Oncology evaluated and patient may not have any good options left with dual cancer diagnosis,
4. CKD stage IV
- Creatinine close to baseline of 1.9 with GFR of 25
- Avoid nephrotoxic medication as possible
- CT abdomen on admission without IV contrast.
5. Elevated liver enzymes
- Minimal elevation of AST/ALP, related to involvement from metastatic disease?
6. Essential hypertension
- Maintained on Procardia 30mg/d
7. Hypothyroidism
- maintain on levothyroxine 50mcg/d
DVT PPX -scd
Full code
07/19 oncology evaluated patient and discussed poor prognosis for patient. Recommended possible palliative care versus hospice. No decision has been made and oncology planning to continue discussion with family regarding GOC.
07/20 patient family opted for hospice care. Will require PT evaluation and appropriate level of care for patient to get hospice care. Case management aware
Patient getting dyspneic today and continues to have abdominal discomfort/distention. Patient will be provided dose of morphine/Lasix
Awaiting hospice staff evaluation and may qualify for GIP need of level of care
care plan discussed with patient spouse/family at bedside
Anticipated Discharge: Today
Subjective/Interval History
-
Date of Service: July 21, 2025
Feeling dyspneic, had to be placed on oxygen
no nausea or vomiting overnight
denies of having any excessive abd pain
Objective Data
-
Labs:
Laboratory Results
07/21/25
06:50
WBC 10.0
Hgb 7.9 L
Hct 24.6 L
Plt Count 95 L
Sodium 137
Potassium 4.0
Chloride 110 H
Carbon Dioxide 22
BUN 21 H
Creatinine 1.7 H
Glucose 73
Calcium 7.4 L
Vital Signs:
Vital Signs
Temp Pulse Resp BP Pulse Ox
97.9 F 89 20 146/71 91
07/21/25 07:00 07/21/25 11:10 07/21/25 11:10 07/21/25 07:00 07/21/25 11:10
I&O
07/20/25 07/21/25 07/22/25
06:59 06:59 06:59
Intake Total 960 / 960 2089
Output Total 220 / 220
Balance 740 / 740 2089
Review of Systems
-
Respiratory: Reports No Symptoms
Cardiac: Reports No Symptoms
Abdomen/GI: Reports No Symptoms
Physical Exam
-
General: No Apparent Distress; Negative Cachectic
HEENT: Oxygen (3 LNC)
GI: Tender (minimal) and Distended; Negative Normal Bowel Sounds (Tympanic bowel sound)
Neuro: Awake, Alert and No Motor Deficits
[2025-07-21] MEDS: MORPHINE SULFATE 1 MG IV (11:34)
[2025-07-21] MEDS: LASIX 20 MG IV (11:34)
--- NOTE | 2025-07-21 11:48 | CM ---
CM met with pt bedside-she deferred planning to her spouse
Hospice meeting with spouse/Chito and dtr/Vilma
Plan for GIP admission
Discharge Disposition- GIP hospice
--- NOTE | 2025-07-21 12:45 | HOSPNOTE ---
Patient is really doing poorly today. Spoke with family and the plan is to admit patient inpatient hospice and focus on comfort. Consents are signed and patient will be admitted. Attending and CM aware of plan. Admissions was called to start hospice
chart.
--- NOTE | 2025-07-21 12:49 | W.DCSUMMARY ---
Discharge Summary
Discharge Data
Date of Admission: 07/17/25
Date of Discharge: 07/21/25
-
Pending Results: No
Hospital Course
Discharging Physician : Dr Leonardo Del Castillo
Disposition : Inpatient hospice
Primary care physician : Dr Krystian Campos
Principal Discharge diagnosis :
Ileus
Colon cancer recurrence with diffuse metastatic disease involving liver/lung/lymph node
Chronic Discharge diagnosis :
History of colon cancer s/p resection
Multiple myeloma
Chronic disease stage IV
Essential hypertension
Hypothyroidism
Hospital Course :
Patient is a 89-year-old female with above-mentioned past medical history came to ER with new onset of abdominal pain and discomfort. CT abdomen pelvis in the ER showing signs of bowel obstruction with fluid-filled dilated loops of small bowel.
General surgery was involved in care and patient was admitted to medical floor for further assessment. NG tube was placed for gastric decompression. CT abdomen pelvis also showing signs of new metastatic disease in comparison to previous imaging
from October which was involving the liver and retroperitoneal/paraesophageal lymph nodes. There were multiple pulmonary nodules were noted on lung as well. Oncology was involved in care for further assessment as well. Based on patient increased
surgical risk patient was recommended to be managed conservatively. Oncology based on review of likely recurrence/relapse of colon cancer recommended hospice care as patient had limited chemotherapy option with simultaneous diagnosis of multiple
myeloma as well. Patient family agreed for patient to be transition to hospice care and patient was switched to inpatient hospice care on 07/21/25.
Important imaging findings :
CT a/p
There are multiple dilated loops of small bowel with fecal-like contents which may represent an ileus or obstruction.
There is extensive new metastatic disease including new pulmonary nodules, extensive hepatic lesions and extensive peritoneal and retroperitoneal lymphadenopathy.
Small volume perihepatic free fluid as well as small volume pelvic ascites.
Bilateral mildly hyperdense renal lesions measuring up to 1.4 cm on the left and 1.3 cm on the right. Recent prior renal ultrasound demonstrated a complex cyst in the lower pole the right kidney.
Small hiatal hernia.
Cholelithiasis. The gallbladder appears mildly distended. Consider further evaluation with dedicated ultrasound if there is concern for acute cholecystitis.
Procedure findings :
None
Discharge Plan
-
Patient Disposition: Hospice - Inpatient [facility]
Discharge Orders:
Discharge Patient (As Directed); Ordered 07/21/25
Ordered By: Leonardo Del Castillo
Discharge Date and Time
Discharge Date/Time: 07/21/25 12:13
Print Language: LUXEMBOURGISH
== END 2025-07-21 12:13 | disposition hospice, inpatient (51) | DRG 389 ==
LOC: 2 NORTH 22:53
PROVIDERS: Nurse Practitioner Family; Physician Assistant; ADMITTING PHYSICIAN Internal Medicine; ATTENDING PHYSICIAN Hospitalist; CONSULT PHYSICIAN Internal Medicine Hematology & Oncology; CONSULT PHYSICIAN Surgery; EMERGENCY PHYSICIAN Emergency Medicine; FAMILY PHYSICIAN Internal Medicine Geriatric Medicine
PROC: 0D9670Z Drainage of Stomach with Drainage Device, Via Natural or Artificial Opening (ICD-10-PCS; 2025-07-18)
DX: K56.7 Ileus, unspecified (principal); C18.9 Malignant neoplasm of colon, unspecified; C78.6 Secondary malignant neoplasm of retroperitoneum and peritoneum; C90.00 Multiple myeloma not having achieved remission; D61.818 Other pancytopenia; N18.4 Chronic kidney disease, stage 4 (severe); C78.7 Secondary malignant neoplasm of liver and intrahepatic bile duct; R18.8 Other ascites; I12.9 Hypertensive chronic kidney disease with stage 1 through stage 4 chronic kidney disease, or unspecified chronic kidney disease; E03.9 Hypothyroidism, unspecified; Z51.5 Encounter for palliative care; Z11.52 Encounter for screening for COVID-19; Z79.899 Other long term (current) drug therapy
CPT/HCPCS: 43752; 71045; 74018; 74176; 80048; 80053; 82962; 83605; 83690; 83735; 85025; 85027; 87040; 87502; 87811; 94640; 96361; 96374; 96375; 96376; 97163; 97167; 99285

== ENCOUNTER 2025-07-21 12:16 | Inpatient (IN) | payer OTHER, SELFPAY ==
--- NOTE | 2025-07-21 12:23 | CM ---
Pt from home with spouse
Admitted to [facility] hospice service
Pt has supportive family and children locally along with spouse
CM will continue follow for support and planning
Discharge Disposition- [facility] hospice
--- NOTE | 2025-07-21 12:48 | HPS.HSE ---
Family Physician
-
Family Physician: INTERVIEWE UNKNOWN - PT NOT
Chief Complaint
-
Transition to inpatient hospice care
History of Present Illness
Patient is 89-year-old female with past medical history of colon cancer and resection, multiple myeloma, chronic kidney disease stage IV, essential hypertension, hypothyroidism was hospitalized on 07/17 for new onset of abdominal pain/distention.
On imaging patient was noted to having changes of bowel obstruction with likely recurrence of metastatic colon cancer. Oncology and general surgery was involved in care and patient was managed conservatively due to increased risk with surgery. An
NG tube was placed for gastric decompression. Over next 72 hours patient had minimal improvement in symptoms. With dual cancer diagnosis patient was felt to having poor prognosis and limited chemotherapy option from oncology perspective. Oncology
recommended for patient to be transition to hospice care. Patient being switched to inpatient hospice care today.
Today patient complaining of feeling dyspneic and anxious from it. No ongoing productive cough/chest discomfort/palpitation. Patient vitally stable no reported fever episode. Patient was provided dose of IV Lasix/morphine to help with pulmonary
symptoms.
Medical History
Past Medical History
Past Medical History: Reports Other
Additional Past Medical History:
history of colon cancer and resection, multiple myeloma, chronic kidney disease stage IV, essential hypertension, hypothyroidism
Past Surgical History: Reports Other
Social History
Tobacco: Non-smoker
Alcohol: None
Personal:
Living: With Family
Family History
Family History: Not pertinent
Allergies / Home Medications
Allergies reflects when Allergies were last updated in [facility].
Home Medications with original date entered in [facility]
Allergy/Medication List:
Allergies
Allergy/AdvReac Type Severity Reaction Status Date / Time
promethazine Allergy Vomiting Verified 07/17/25 17:59
Home Medications
albuterol sulfate 2.5 mg/3 mL (0.083 %) solution for nebulization 2.5 mg inhalation QID shortness of breath/cough 07/19/23
levothyroxine 50 mcg capsule 50 mcg PO DAILY Thyroid 07/19/23
nifedipine 30 mg tablet,extended release 30 mg PO DAILY Blood pressure #30 tabs 07/29/23
budesonide 0.5 mg/2 mL suspension for nebulization 0.5 mg inhalation BID SOB/cough 11/10/24
acyclovir 200 mg capsule 200 mg PO BID Infection 06/09/25
calcitriol 0.5 mcg capsule 0.5 mcg PO DAILY Supplement 06/09/25
montelukast 10 mg tablet 10 mg PO DAILY Allergies 06/09/25
allopurinol 100 mg tablet 50 mg (1/2 x 100 mg) PO .twice a week #30 tabs 06/11/25
meclizine 12.5 mg tablet 12.5 mg PO PRN PRN positional vertigo #15 tabs 06/11/25
montelukast 10 mg tablet 10 mg PO DAILY #30 tabs 06/11/25
sodium bicarbonate 650 mg tablet 650 mg PO BID #60 tabs 06/11/25
Review of Systems
-
A 12 point ROS was completed and negative except as noted: Yes
Physical Exam
Physical Exam
HEENT: Oxygen
Respiratory: Rhonchi
GI: Tender and Distended; No Normal Bowel Sounds
Musculoskeletal: No Edema
Skin: No Rash
Neuro: Awake, Alert and AO x 3
Psych: Anxious
Impression/Plan
-
Ileus
Dyspnea
Metastatic colon cancer - relapsed
history of colon cancer and resection
multiple myeloma
chronic kidney disease stage IV
essential hypertension
hypothyroidism
Patient to be started on IV morphine as needed for dyspnea with transition to drip if meets criteria
As needed Zofran for nausea vomiting ordered
Patient ongoing ileus and to be maintained on clear liquid diet. If any signs of spontaneous improvement patient can have regular food as well.
As needed Ativan ordered for anxiety
Care plan discussed with patient family at bedside
RN/hospice staff aware about the switch
[id number]
DNR
Total time spent : 77 mins
I personally saw and examined the patient.
I have reviewed all diagnostic interpretations and treatment plans as written.
Time includes patient management by me, time spent at the patients bedside, time to review lab and imaging results, discussing patient care, documentation in the medical record, and time spent with the family or caregiver and discussing care plan
with RN/Consultants.
[2025-07-21] MEDS: DUONEB 3 ML INH ×2 (13:04→18:21)
[2025-07-21 19:55] VITALS: BP 111/60
--- NOTE | 2025-07-21 22:33 | HOSPNOTE ---
Patient admitted inpatient hospice. Hospice will visit daily.
[2025-07-22 07:00] VITALS: BP 148/73
[2025-07-22] MEDS: MORPHINE SULFATE 1 MG IV ×2 (08:17→11:10)
[2025-07-22] MEDS: DUONEB 3 ML INH ×2 (11:14→15:19)
--- NOTE | 2025-07-22 11:20 | HOSPNOTE ---
SN received patient sitting up in bed talking with family. Patient pursing lips, appeared dyspneic. Patient stated has to try catch breath patient pox 98% on O2. Patient received PRN morphine and PRN neb tx during visit. Patient denies pain, states
has minor tenderness in abdomen when pressed. Patient stated appetite is baseline, stated had cream of wheat this am. Patient stated had small bowel movement yesterday and some flatulence. Patient lungs CTA. Patient talked with SN about family
history. Emotional support provided. SN coordinated with facility RN no concerns at this time. Reinforced to call office with any questions or concerns expresses understanding. Patient remains inpatient due to dyspnea that is unable to be managed in
an outside setting. Discharge planning continues
--- NOTE | 2025-07-22 12:53 | W.PN.HOSP.TC ---
Today's Communication/Plan
-
continue hospice care
advance diet
Assessment / Plan
Assessment / Plan
Ileus
Dyspnea
Metastatic colon cancer - relapsed
history of colon cancer and resection
multiple myeloma
chronic kidney disease stage IV
essential hypertension
Hypothyroidism
Patient to be started on IV morphine as needed for dyspnea with transition to drip if meets criteria
As needed Zofran for nausea vomiting ordered
As needed Ativan ordered for anxiety
Care plan discussed with patient family at bedside
RN/hospice staff aware about the switch
07/22 for signs of ileus present on exam. Still have abdominal tenderness and distention.
Able to tolerate diet well will advance to regular diet, patient intent to stay on liquid nonetheless
[id number]-[id number]
DNR
Anticipated Discharge: 24 - 48 hours
Subjective/Interval History
-
Date of Service: July 22, 2025
feeling better
some abd tenderness, no nausea/vomiting
Objective Data
-
Vital Signs:
Vital Signs
Temp Pulse Resp BP Pulse Ox
98.9 F 83 18 148/73 98
07/22/25 07:00 07/22/25 11:17 07/22/25 11:17 07/22/25 07:00 07/22/25 11:17
I&O
07/21/25 07/22/25 07/23/25
06:59 06:59 06:59
Intake Total 420 / 420
Balance 420 / 420
Review of Systems
-
Respiratory: Reports No Symptoms
Cardiac: Reports No Symptoms
Abdomen/GI: Reports No Symptoms
Physical Exam
-
General: No Apparent Distress; Negative Cachectic
HEENT: Oxygen (3 LNC)
GI: Tender (minimal) and Distended; Negative Normal Bowel Sounds (Tympanic bowel sound)
Neuro: Awake, Alert and No Motor Deficits
[2025-07-22 19:42] VITALS: BP 142/65
[2025-07-23 07:00] VITALS: BP 157/72
[2025-07-23] MEDS: ROBINUL 0.2 MG IV (10:51)
[2025-07-23] MEDS: MORPHINE SULFATE 1 MG IV ×3 (10:51→21:53)
--- NOTE | 2025-07-23 11:41 | W.PN.HOSP.TC ---
Today's Communication/Plan
-
see note
continue inpt hospice measure
Assessment / Plan
Assessment / Plan
Ileus
Dyspnea
Metastatic colon cancer - relapsed
history of colon cancer and resection
multiple myeloma
chronic kidney disease stage IV
essential hypertension
Hypothyroidism
Patient to be started on IV morphine as needed for dyspnea with transition to drip if meets criteria
As needed Zofran for nausea vomiting ordered
As needed Ativan ordered for anxiety
Care plan discussed with patient family at bedside
RN/hospice staff aware about the switch
07/22 for signs of ileus present on exam. Still have abdominal tenderness and distention.
Able to tolerate diet well will advance to regular diet, patient intent to stay on liquid nonetheless
07/23 able to tolerate solid food in the morning today. Continues to have some abdominal pain/distention tender
Continues to have dyspnea on exertion and requesting to be placed on oxygen
Continue comfort measures
DVTPPX-scd
DNR
Anticipated Discharge: > 48 hours
Subjective/Interval History
-
Date of Service: July 23, 2025
Continues to have abdominal distention/tenderness
Have some exertional dyspnea as well
No other reported problems
Objective Data
-
Vital Signs:
Vital Signs
Temp Pulse Resp BP Pulse Ox
99 F 90 16 157/72 95
07/23/25 07:00 07/23/25 07:00 07/23/25 07:00 07/23/25 07:00 07/23/25 07:00
I&O
07/22/25 07/23/25 07/24/25
06:59 06:59 06:59
Intake Total 420 / 420 920 / 920
Balance 420 / 420 920 / 920
Review of Systems
-
Respiratory: Reports Trouble Breathing; Denies Cough
Cardiac: Reports No Symptoms
Abdomen/GI: Reports Abdominal Pain; Denies Nausea or Vomiting
Physical Exam
-
General: Negative Appears in Distress
HEENT: Negative Oxygen
GI: Tender and Distended; Negative Normal Bowel Sounds
Neuro: Awake, Alert and Oriented
Psych: Calm
[2025-07-23] MEDS: DUONEB 3 ML INH (13:34)
--- NOTE | 2025-07-23 14:07 | HOSPNOTE ---
Patient remains GIP appropriate level of care for symptoms of SOB, WALTON and pain. Patient pursed lipped breathing on nurse arrival, facility nurse gave morphine and resp therapy giving neb tx. Discussed with facility nurse Karly the use of ativan
for anxiety as patient is struggling with breathing and appears anxious. Patient recieved Morphine x 3 , and robinul x1 in last 24 hours. Weaning oxygen off, currently on room air. Continue to monitor GIP level of care and plan for home hospice if
appropriate.
entered by Tanesha Parr RN
[2025-07-23 19:40] VITALS: BP 146/73
[2025-07-24] MEDS: MORPHINE SULFATE 1 MG IV ×4 (00:09→05:12)
[2025-07-24] MEDS: MORPHINE 100 IV (05:20)
[2025-07-24] MEDS: MORPHINE SULFATE 2 MG IV ×2 (05:57→07:25)
[2025-07-24] MEDS: ATIVAN 1 MG IV (06:28)
[2025-07-24] MEDS: NSS (PRESERVATIVE FREE) 0.5 ML IV (06:29)
[2025-07-24 07:29] VITALS: BP 93/57
--- NOTE | 2025-07-24 09:11 | W.PN.DEATH ---
Addendum entered and electronically signed by Leonardo Del Castillo MD 07/24/25 09:17:
E- certificate signed
Original Note:
Pronouncement of
-
Called to see patient to pronounce.
No spontaneous heart tones or respirations noted.
Patient not responsive to verbal stimuli.
Patient is pronounced .
Time of : 08:58
Date of : 07/24/25
Cause of : Hypoxic respiratory failure, Small bowel obstruction, Metastatic colon cancer
Family Notified: Yes
--- NOTE | 2025-07-24 09:17 | W.DCSUMMARY ---
Discharge Summary
Discharge Data
Date of Admission: 07/21/25
Date of Discharge: 07/24/25
-
Pending Results: No
Hospital Course
This is a summary on Ms. Shawna Mcginnis who on 07/24/2025 at [id number]
Hospital diagnosis:
Ileus
Acute hypoxic respiratory insufficiency
Metastatic colon cancer - relapsed
history of colon cancer and resection
multiple myeloma
chronic kidney disease stage IV
essential hypertension
Hypothyroidism
Hospital course:
Patient is an 89-year-old female with above-mentioned past medical history was initially hospitalized from 07/17 to 07/20 for new diagnosis of ileus/bowel obstruction with concern of relapse of metastatic colon cancer. Patient was deemed to be a
poor candidate for further chemotherapy as have diagnosis of multiple myeloma. In light of non-improvement symptoms patient and family opted for patient to be transition to hospice care. Patient was admitted to inpatient hospice on 07/21/25.
Patient was managed with symptomatic/comfort care medications. Patient on 07/24/25 morning on hospice care. Family at bedside during the pronouncement.
Discharge Plan
-
Patient Disposition:
Discharge Date and Time
Print Language: TURKMEN
== END 2025-07-24 13:10 | disposition expired | DRG 951 ==
LOC: 2 NORTH 12:16
PROVIDERS: ADMITTING PHYSICIAN Hospitalist
DX: Z51.5 Encounter for palliative care (principal); J96.91 Respiratory failure, unspecified with hypoxia; C90.00 Multiple myeloma not having achieved remission; N18.4 Chronic kidney disease, stage 4 (severe); K56.7 Ileus, unspecified; C18.9 Malignant neoplasm of colon, unspecified; K56.609 Unspecified intestinal obstruction, unspecified as to partial versus complete obstruction; I12.9 Hypertensive chronic kidney disease with stage 1 through stage 4 chronic kidney disease, or unspecified chronic kidney disease; E03.9 Hypothyroidism, unspecified; Z66 Do not resuscitate
CPT/HCPCS: 94640